=== PATIENT | female | born 2000 | race African-American/Black ===

== ENCOUNTER 2022-06-18 09:38 | Emergency (ER) | payer OTHER ==
[2022-06-18] MEDS ORDERED: SODIUM CHLORIDE 0.9% 1,000 ML IV STA (11:08)
[2022-06-18] MEDS ORDERED: METOCLOPRAMIDE 10 MG/2 ML VIAL IVP STA (11:09)
--- NOTE | 2022-06-18 12:08 | ED Physician Documentation ---
PD HPI HEADACHE - Stated complaint Stated Complaint: HEADACHE/DIZZINESS - Chief complaint Chief Complaint: Neuro - History obtained from History obtained from: Patient - History of Present Illness Timing - onset: Today Worst headache ever?: No: Worst headache ever? Location: Front Quality: No: Thunderclap, Throbbing, Aching, Stabbing, Like head is exploding Associated symptoms: No: Fever, Stiff neck, Nausea, Vomiting Improved by: Dark room, Quiet Worsened by: Light Contributing factors: No: Anticoagulated - Additional information Additional information: 21-year-old female with no reported past medical history presents with low- grade, throbbing, frontal headache with associated photophobia. Patient noticed her headache when she woke up this morning, no medications taken at home for symptoms. She states that she called the [facility] medical office, who advised that she come to the ER for evaluation. Patient denies personal history of migraines, states that her mother was diagnosed with migraine headaches when she was young. Denies fever, blurred vision, neck stiffness, worst headache of life. Denies change in headache with Valsalva. Review of Systems Ten Systems: 10 systems reviewed and negative Constitutional: denies: Fever, Chills Eyes: reports: Photophobia. denies: Loss of vision, Decreased vision, Discharge, Irritation Cardiac: denies: Chest pain / pressure, Palpitations GI: denies: Abdominal Pain, Nausea, Vomiting : denies: Dysuria, Frequency, Hesitancy Skin: denies: Rash Musculoskeletal: denies: Neck pain, Back pain, Extremity pain Neurologic: reports: Headache. denies: Generalized weakness, Focal weakness PD PAST MEDICAL HISTORY - Past Medical History Past Medical History: No - Past Surgical History Past Surgical History: No - Allergies Allergies/Adverse Reactions: Allergies Allergy/AdvReac Type Severity Reaction Status Date / Time No Known Drug Allergies Allergy Verified 06/18/22 09:54 - Social History Does the pt smoke?: No Smoking Status: Never smoker Does the pt drink ETOH?: No Does the pt have substance abuse?: No - Immunizations Immunizations are current?: Yes PD ED PE NORMAL - Vitals Vital signs reviewed: Yes - General General: Alert and oriented X 3, No acute distress, Well developed/nourished - HEENT HEENT: Atraumatic, PERRL, EOMI, Ears normal, Moist mucous membranes - Neck Neck: Supple, no meningeal sign, No bony TTP, No adenopathy, Thyroid normal, C- Spine cleared by NEXUS criteria - Cardiac Cardiac: RRR, No gallop, No rub, Strong equal pulses - Respiratory Respiratory: No respiratory distress, Clear bilaterally - Abdomen Abdomen: Soft, Non tender, Non distended, No organomegaly - Female Female : Deferred - Back Back: No CVA TTP, No spinal TTP - Derm Derm: Normal color, Warm and dry, No rash - Extremities Extremities: No deformity, No tenderness to palpate, Normal ROM s pain - Neuro Neuro: Alert and oriented X 3, clinical staff educator 2-12 intact, No motor deficit, No sensory de ficit, Normal speech - Psych Psych: Normal mood, Normal affect Results - Vitals Vitals: Vital Signs - 24 hr 06/18/22 06/18/22 09:51 12:14 Temperature 36.4 C L Heart Rate 75 62 Respiratory 16 15 Rate Blood Pressure 115/71 112/63 O2 Saturation 100 100 Oxygen O2 Source Room air PD MEDICAL DECISION MAKING - ED course Complexity details: re-evaluated patient, considered differential, d/w patient ED course: . Well-appearing female with 1 day of frontal headache and photophobia s uspicious for migraine headache. Neurologically intact, patient drove herself to the emergency department, ambulatory without difficulty, no acute distress on exam. Patient was given a headache cocktail with complete resolution of her symptoms. Patient was counseled to follow-up with primary care physician if she continues to experience headaches for further work-up. Red flag signs of headache discussed with patient at bedside. Counseled Tylenol and Motrin as needed for head discomfort, advised patient to drink plenty of fluids. Patient requested a note for work, which was provided. Departure - Departure Disposition: 01 Home, Self Care Clinical Impression: Headache Qualifiers: Headache type: unspecified Headache chronicity pattern: acute headache Intractability: not intractable Qualified Code(s): R51.9 - Headache, unspecified Condition: Good Instructions: ED Headache Migraine Discharge Date/Time: 06/18/22 12:55
[2022-06-18 12:15] VITALS: BP 112/63
== END 2022-06-18 12:55 | disposition home or self-care (01) ==
LOC: ED 09:38
DX: R51.9 Headache, unspecified (principal)
CPT/HCPCS: 96374; 99282; 99283; J2765

== ENCOUNTER 2022-08-21 08:00 | Outpatient (CLI) | payer OTHER ==
[2022-08-21 18:01] LABS: BASOPHILS % (AUTO) 0.9 %; EOSINOPHILS % (AUTO) 1.2 %; HCT - HEMATOCRIT 37.6 % (37.0-47.0); HGB - HEMOGLOBIN 11.7 g/dL (12.0-16.0); LYMPHOCYTES # (AUTO) 1.8 10^3/uL (1.5-3.5); LYMPHOCYTES % (AUTO) 52.6 %; MEAN CORPUSCULAR HEMOGLOBIN 25.6 pg (27.0-31.0); MEAN CORPUSCULAR HGB CONC 31.1 g/dL (32.0-36.0); MEAN CORPUSCULAR VOLUME 82.3 fL (81.0-99.0); MEAN PLATELET VOLUME 11.2 fL (7.9-10.8); MONOCYTES # (AUTO) 0.4 10^3/uL (0.0-1.0); MONOCYTES % (AUTO) 11.9 %; NEUTROPHILS # (AUTO) 1.1 10^3/uL (1.5-6.6); NEUTROPHILS % (AUTO) 33.1 %; PLT - PLATELET COUNT 245 10^3/uL (130-450); RED BLOOD COUNT 4.57 10^6/uL (4.20-5.40); WHITE BLOOD COUNT 3.4 x10^3/uL (4.8-10.8)
[2022-08-21 18:09] LABS: ALBUMIN 4.5 g/dL (3.2-5.5); ALBUMIN/GLOBULIN RATIO 1.5 (1.0-2.2); BILIRUBIN,TOTAL 1.2 mg/dL (0.2-1.0); CALCIUM 9.6 mg/dL (8.5-10.3); CREATININE 0.7 mg/dL (0.4-1.0); POTASSIUM 3.9 mmol/L (3.5-5.0); TOTAL PROTEIN 7.5 g/dL (6.7-8.2)
[2022-08-21 18:33] LABS: HCG,QUALITATIVE BLOOD NEGATIVE
== END 2022-08-21 23:59 | disposition home or self-care (01) ==
LOC: LAB.N 08:00
PROVIDERS: ATTEND Nurse Practitioner
DX: R10.9 Unspecified abdominal pain (principal)
CPT/HCPCS: 36415; 80053; 82150; 83690; 84703; 85025

== ENCOUNTER 2022-11-19 08:00 | Outpatient (CLI) | payer OTHER ==
[2022-11-19 12:27] LABS: BASOPHILS % (AUTO) 0.6 %; EOSINOPHILS % (AUTO) 0.6 %; HCT - HEMATOCRIT 39.2 % (37.0-47.0); HGB - HEMOGLOBIN 11.9 g/dL (12.0-16.0); LYMPHOCYTES # (AUTO) 1.9 10^3/uL (1.5-3.5); LYMPHOCYTES % (AUTO) 35.4 %; MEAN CORPUSCULAR HEMOGLOBIN 25.3 pg (27.0-31.0); MEAN CORPUSCULAR HGB CONC 30.4 g/dL (32.0-36.0); MEAN CORPUSCULAR VOLUME 83.2 fL (81.0-99.0); MEAN PLATELET VOLUME 11.4 fL (7.9-10.8); MONOCYTES # (AUTO) 0.5 10^3/uL (0.0-1.0); MONOCYTES % (AUTO) 9.3 %; NEUTROPHILS # (AUTO) 2.9 10^3/uL (1.5-6.6); NEUTROPHILS % (AUTO) 53.7 %; PLT - PLATELET COUNT 262 10^3/uL (130-450); RED BLOOD COUNT 4.71 10^6/uL (4.20-5.40); RED CELL DISTRIBUTION WIDTH 14.7 % (12.0-15.0); WHITE BLOOD COUNT 5.4 x10^3/uL (4.8-10.8)
== END 2022-11-19 23:59 | disposition home or self-care (01) ==
LOC: LAB.N 08:00
PROVIDERS: ATTEND Family Medicine
DX: Z32.01 Encounter for pregnancy test, result positive (principal); N39.0 Urinary tract infection, site not specified; R10.2 Pelvic and perineal pain
CPT/HCPCS: 36415; 84702; 85025; 87077; 87086; 87181

== ENCOUNTER 2022-11-19 13:32 | Outpatient (CLI) | payer OTHER ==
--- NOTE | 2022-11-19 15:16 | Ultrasound Report ---
PROCEDURE: OB First Trimester w/TV INDICATIONS: POSITIVE TEST OUTSIDE/PRIOR DATING DATA: Last menstrual period (LMP): 09/27/2022. LMP-based estimated date of delivery (CARLA): 07/04/2023. First dating scan (date and location): 11/19/2022. Estimated date of delivery (CARLA) from first dating scan: 07/05/2023. TECHNIQUE: Real-time scanning was performed of the fetus and maternal pelvic organs, with image documentation. Endovaginal scanning was also performed to better visualize the fetus and maternal ovaries. COMPARISON: None. FINDINGS: Single living intrauterine . A small subchorionic hemorrhage is present measuring up to 1.6 cm, less than 50% circumference of the adjacent gestational sac. Embryo: Arco-rump length of 1.22 cm corresponding to gestational age of 7 weeks 3 days. Heart rate: 155 bpm Measurement variability in dating: +/- 4 weeks by LMP, +/- 7 days by mean sac diameter (use before 6 weeks gestation if crown-rump length not able to be measured), +/- 5 days by crown-rump length (6-12 weeks gestation). Maternal organs: Ovaries are unremarkable. IMPRESSION: Single living intrauterine with gestational age of 7 weeks 3 days by crown-rump length, con cordant with clinical dates. Reviewed by: Armand Leslie MD on 11/19/2022 3:15 PM PST Approved by: Armand Leslie MD on 11/19/2022 3:15 PM PST Station ID: [id number]
== END 2022-11-19 13:33 | disposition home or self-care (01) ==
LOC: DI 13:32
PROVIDERS: ATTEND Nurse Practitioner
DX: Z34.91 Encounter for supervision of normal pregnancy, unspecified, first trimester (principal)

== ENCOUNTER 2022-11-20 23:23 | Emergency (ER) | payer OTHER ==
[2022-11-21] MEDS ORDERED: diphenhydrAMINE 25 MG CAPSULE PO STA (00:35)
--- NOTE | 2022-11-21 00:38 | ED Physician Documentation ---
PD HPI HEENT - Stated complaint Stated Complaint: SWOLLEN THROAT/COUGH - Chief complaint Chief Complaint: Heent - History obtained from History obtained from: Patient - Additional information Additional information: The patient comes to the emergency department chief complaint of feeling of swollen throat after taking her amoxicillin. She states she is on amoxicillin for urinary tract infection and that she has been on it for couple days with no problems. However, about 3 hours after her last dose 1800, she began to feel as though her throat was tight when she was laying down. She states she also had a tight feeling in her chest and had a little bit of a cough. He has not had any respiratory illness prior. She denies any swelling of her tongue or lips. She did not have a rash or itching. She states when she sat up she felt a little better and that the sensation is nearly gone now. No prior allergies. No other complaints at this time. She states her mother is allergic to penicillins. Review of Systems Ten Systems: 10 systems reviewed and negative Constitutional: reports: Reviewed and negative Eyes: reports: Reviewed and negative Ears: reports: Reviewed and negative Nose: reports: Reviewed and negative Throat: reports: Reviewed and negative Cardiac: reports: Reviewed and negative Respiratory: reports: Cough GI: reports: Reviewed and negative : reports: Reviewed and negative Skin: reports: Reviewed and negative Musculoskeletal: reports: Reviewed and negative Neurologic: reports: Reviewed and negative Psychiatric: reports: Reviewed and negative Endocrine: reports: Reviewed and negative Immunocompromised: reports: Reviewed and negative PD PAST MEDICAL HISTORY - Past Medical History Past Medical History: No - Past Surgical History Past Surgical History: No - Present Medications Home Medications: Ambulatory Orders Medication Instructions Recorded Confirmed Amoxicillin 500 mg PO TID 11/20/22 11/20/22 Ondansetron HCl 4 mg PO Q8HR PRN 11/20/22 11/20/22 Vit No.130/Iron/Folic 1 tab PO DAILY 11/20/22 11/20/22 [ Tablet] Nitrofurantoin [Macrobid] 100 mg PO BID #14 cap 11/21/22 - Allergies Allergies/Adverse Reactions: Allergies Allergy/AdvReac Type Severity Reaction Status Date / Time No Known Drug Allergies Allergy Verified 11/20/22 23:43 - Social History Does the pt smoke?: No Smoking Status: Never smoker Does the pt drink ETOH?: No Does the pt have substance abuse?: No - Immunizations Immunizations are current?: Yes - POLST Patient has POLST: No PD ED PE NORMAL - Vitals Vital signs reviewed: Yes - General General: Alert and oriented X 3, No acute distress, Well developed/nourished - HEENT HEENT: Atraumatic, PERRL, EOMI, Moist mucous membranes, Other (No oropharyngeal edema.) - Neck Neck: Supple, no meningeal sign - Cardiac Cardiac: RRR, No murmur - Respiratory Respiratory: No respiratory distress, Clear bilaterally - Abdomen Abdomen: Soft, Non tender, Non distended - Derm Derm: Normal color, Warm and dry, No rash - Extremities Extremities: No deformity - Neuro Neuro: Alert and oriented X 3 - Psych Psych: Normal mood, Normal affect Results - Vitals Vitals: Vital Signs - 24 hr 11/20/22 11/21/22 23:30 00:48 Temperature 36.8 C 36.8 C Heart Rate 70 72 Respiratory 16 16 Rate Blood Pressure 122/66 110/46 L O2 Saturation 100 100 Oxygen O2 Source Room air PD Medical Decision Making - ED course Complexity details: considered differential, d/w patient ED course: I discussed with the patient that it is not clear whether she is actually had an allergic reaction or not. Her presentation is somewhat atypical, given that the symptoms started 3 hours after taking the med, and not there was no rash, itching, or demonstrable edema. However, given that the patient's mother is allergic to penicillins and given that we can easily switch her p.o. a different antibiotic that will be safe in , this is probably the most prudent course of action. I given the patient a dose of Benadryl here. I have given her a prescription for Macrobid, which she will fill at pharmacy tomorrow. We discussed the usual indications for return. Departure - Departure Disposition: 01 Home, Self Care Clinical Impression: Allergic reaction Qualifiers: Encounter type: initial encounter Qualified Code(s): T78.40XA - Allergy, unspecified, initial encounter Condition: Stable Instructions: ED Drug React Allergic Prescriptions: Nitrofurantoin [Macrobid] 100 mg PO BID #14 cap Comments: As we have discussed, your symptoms are not entirely typical of allergic reaction, given that they started 3 hours after you took the antibiotic, and g iven that they were not associated with any itching or rash. However, since you did feel a tightening in your throat and some difficulty breathing, we will err on the side of caution and switch you to a different antibiotic. The prescription for this has been electronically transmitted to the [facility] pharmacy in [place]. We have given you a dose of Benadryl tonight. Your lungs have been found to be clear here and there is no swelling of the structures of your mouth or throat. You may get some [id number] Benadryl and if you continue to have that sensation, which you may for the next couple of days, you may take the Benadryl as needed. Please follow-up with your primary care doctor as needed for further concerns. Discharge Date/Time: 11/21/22 00:48
[2022-11-21 00:49] VITALS: BP 110/46
== END 2022-11-21 00:48 | disposition home or self-care (01) ==
LOC: ED 23:23
DX: R09.89 Other specified symptoms and signs involving the circulatory and respiratory systems (principal); R07.89 Other chest pain; T36.0X5A Adverse effect of penicillins, initial encounter; N39.0 Urinary tract infection, site not specified
CPT/HCPCS: 99282; A9270

== ENCOUNTER 2022-12-05 08:00 | Outpatient (CLI) | payer OTHER ==
[2022-12-05 16:37] LABS: BILIRUBIN,URINE NEGATIVE (NEGATIVE); GLUCOSE, URINE (UA) NEGATIVE (NEGATIVE); KETONES,URINE (UA) NEGATIVE (NEGATIVE); LEUKOCYTE ESTERASE, URINE TRACE (NEGATIVE); NITRITE,URINE NEGATIVE (NEGATIVE); OCCULT BLOOD,URINE NEGATIVE (NEGATIVE); PROTEIN,URINE NEGATIVE (NEGATIVE); UROBILINOGEN,URINE 0.2 (NORMAL) E.U./dL (NORMAL)
[2022-12-05 16:40] LABS: CLARITY,URINE CLEAR (CLEAR)
[2022-12-05 16:56] LABS: AMORPHOUS SEDIMENT,UR Few /LPF; BACTERIA,URINE Moderate /HPF (None Seen); RBC,URINE 0-5 /HPF (0-5); SQUAMOUS EPITHELIAL CELL,UR MOD Squamous (<= Few)
[2022-12-05 23:36] LABS: CHLAMYDIA TRACHOMATIS DNA NEGATIVE (NEGATIVE); NEISSERIA GONORRHOEAE DNA NEGATIVE (NEGATIVE); TRICHOMONAS VAGINALIS DNA NEGATIVE (NEGATIVE)
== END 2022-12-05 23:59 | disposition home or self-care (01) ==
LOC: LAB 08:00
PROVIDERS: ATTEND Nurse Practitioner
DX: Z34.90 Encounter for supervision of normal pregnancy, unspecified, unspecified trimester (principal); Z36.89 Encounter for other specified antenatal screening
CPT/HCPCS: 81001; 87086; 87491; 87591; 87661

== ENCOUNTER 2022-12-05 10:42 | Outpatient (CLI) | payer OTHER ==
[2022-12-05 11:01] LABS: BASOPHILS % (AUTO) 0.4 %; EOSINOPHILS # (AUTO) 0.1 10^3/uL (0.0-0.7); EOSINOPHILS % (AUTO) 0.7 %; LYMPHOCYTES # (AUTO) 1.8 10^3/uL (1.5-3.5); MEAN CORPUSCULAR HEMOGLOBIN 25.8 pg (27.0-31.0); MEAN CORPUSCULAR HGB CONC 31.4 g/dL (32.0-36.0); MEAN PLATELET VOLUME 10.5 fL (7.9-10.8); MONOCYTES # (AUTO) 0.7 10^3/uL (0.0-1.0); MONOCYTES % (AUTO) 10.2 %; NEUTROPHILS # (AUTO) 4.4 10^3/uL (1.5-6.6); NEUTROPHILS % (AUTO) 62.3 %; PLT - PLATELET COUNT 240 10^3/uL (130-450); RED BLOOD COUNT 4.27 10^6/uL (4.20-5.40); RED CELL DISTRIBUTION WIDTH 14.7 % (12.0-15.0)
[2022-12-06 06:09] LABS: RPR Non Reactive (Non Reactive)
[2022-12-06 07:10] LABS: HIV SCREEN 4TH GENERATION Non Reactive (Non Reactive)
[2022-12-06 08:10] LABS: HBsAG SCREEN Negative (Negative); HCV AB <0.1 s/co ratio (0.0-0.9); VARICELLA-ZOSTER AB IGG 682 index (Immune >165)
== END 2022-12-05 10:43 | disposition home or self-care (01) ==
LOC: LAB 10:42
PROVIDERS: ATTEND Nurse Practitioner
DX: O99.019 Anemia complicating pregnancy, unspecified trimester (principal); D64.9 Anemia, unspecified
CPT/HCPCS: 36415; 82728; 85025; 86592; 86762; 86787; 86803; 86850; 86900; 86901; 87340; 87389

== ENCOUNTER 2022-12-23 09:46 | Emergency (ER) | payer OTHER ==
--- OUTSIDE RECORDS SUMMARY | 2022-12-23 10:17 | EXTERNAL MEDICAL SUMMARY RPT | Continuity of Care Document ---
:2000 Author Organization [facility] Address [address] [place] [address] Phone Care Team Providers Name Role Phone Unavailable Unavailable Unavailable Natalee Alexander Unavailable Unavailable Ishan Oquendo, Alexx Unavailable Unavailable Tao Campbell Md Unavailable Unavailable Kelsey Venegas Enp, Ally Unavailable Unavailable Gonzalo Oquendo, Drew Unavailable Unavailable Obdulia Sotelo, Elayne Unavailable Unavailable Allergies No information. Encounters No information. Functional Status No information. Immunizations No information. Medications date description facility 2022-11-19 00:00 amoxicillin All 2022-11-19 00:00 amoxicillin All 2022-11-19 00:00 amoxicillin All 2022-11-19 00:00 amoxicillin All 2022-11-19 00:00 amoxicillin All 2022-11-17 00:00 ondansetron All 2022-11-17 00:00 ondansetron All 2022-11-17 00:00 ondansetron All 2022-11-17 00:00 ondansetron All 2022-11-17 00:00 ondansetron All 2022-11-17 00:00 ondansetron All 2022-12-05 00:00 promethazine All 2022-11-19 00:00 amoxicillin All 2022-11-19 00:00 amoxicillin All 2022-11-19 00:00 amoxicillin All 2022-11-19 00:00 amoxicillin All 2022-11-19 00:00 amoxicillin All 2022-12-04 00:00 ONDANSETRON All 2022-12-04 00:00 ONDANSETRON All 2022-11-17 00:00 ondansetron All 2022-11-17 00:00 ondansetron All 2022-11-17 00:00 ondansetron All 2022-11-17 00:00 ondansetron All 2022-11-17 00:00 ondansetron All 2022-11-17 00:00 ondansetron All 2022-11-21 00:00 nitrofurantoin monohyd/m-cryst All 2022-11-21 00:00 nitrofurantoin monohyd/m-cryst All 2022-11-21 00:00 nitrofurantoin monohyd/m-cryst All 2022-11-21 00:00 nitrofurantoin monohyd/m-cryst All 2022-11-21 00:00 nitrofurantoin monohyd/m-cryst All 2022-11-21 00:00 nitrofurantoin monohyd/m-cryst All 2022-12-04 00:00 ondansetron hcl All 2022-12-04 00:00 ondansetron hcl All 2022-12-04 00:00 ondansetron hcl All 2022-12-04 00:00 ondansetron hcl All 2022-11-19 00:00 amoxicillin All 2022-11-19 00:00 amoxicillin All 2022-11-19 00:00 amoxicillin All 2022-11-19 00:00 amoxicillin All 2022-11-19 00:00 amoxicillin All 2022-12-05 00:00 promethazine All 2022-11-19 00:00 amoxicillin All 2022-11-19 00:00 amoxicillin All 2022-11-19 00:00 amoxicillin All 2022-11-19 00:00 amoxicillin All 2022-11-19 00:00 amoxicillin All 2022-11-17 00:00 ondansetron All 2022-11-17 00:00 ondansetron All 2022-11-17 00:00 ondansetron All 2022-11-17 00:00 ondansetron All 2022-11-17 00:00 ondansetron All 2022-11-17 00:00 ondansetron All 2022-12-04 00:00 ondansetron hcl All 2022-12-04 00:00 ondansetron hcl All 2022-11-21 00:00 nitrofurantoin monohyd/m-cryst All 2022-11-21 00:00 nitrofurantoin monohyd/m-cryst All 2022-11-21 00:00 nitrofurantoin monohyd/m-cryst All 2022-11-21 00:00 nitrofurantoin monohyd/m-cryst All 2022-11-21 00:00 nitrofurantoin monohyd/m-cryst All 2022-11-21 00:00 nitrofurantoin monohyd/m-cryst All 2022-12-04 00:00 ondansetron hcl All 2022-12-04 00:00 ondansetron hcl All 2022-11-17 00:00 ondansetron All 2022-11-17 00:00 ondansetron All 2022-11-17 00:00 ondansetron All 2022-11-17 00:00 ondansetron All 2022-11-17 00:00 ondansetron All 2022-11-17 00:00 ondansetron All 2022-12-05 00:00 promethazine All 2022-12-05 00:00 promethazine All Problems date description facility 2022-11-13 00:00 test positive All 2022-11-13 00:00 test positive All 2022-11-13 00:00 test positive All 2022-11-13 00:00 test positive All 2022-11-13 00:00 test positive All 2022-11-13 00:00 test positive All 2022-11-13 00:00 Normal All 2022-11-13 00:00 Normal All 2022-11-13 00:00 Normal All 2022-11-13 00:00 Normal All 2022-11-13 00:00 Normal All 2022-11-13 00:00 Normal All 2022-11-13 00:00 Supervision of other normal All 2022-11-13 00:00 Supervision of other normal All 2022-11-13 00:00 Supervision of other normal All 2022-11-13 00:00 Supervision of other normal All 2022-11-13 00:00 Supervision of other normal All 2022-11-13 00:00 Supervision of other normal All 2022-11-13 00:00 examination or test, positive result All 2022-11-13 00:00 examination or test, positive result All 2022-11-13 00:00 examination or test, positive result All 2022-11-13 00:00 examination or test, positive result All 2022-11-13 00:00 examination or test, positive result All 2022-11-13 00:00 examination or test, positive result All 2022-11-13 00:00 Encounter for test, result po sitive All 2022-11-13 00:00 Encounter for test, result po sitive All 2022-11-13 00:00 Encounter for test, result po sitive All 2022-11-13 00:00 Encounter for test, result po sitive All 2022-11-13 00:00 Encounter for test, result po sitive All 2022-11-13 00:00 Encounter for test, result po sitive All 2022-11-13 00:00 Encounter for supervision of normal preg kelsi, All unspecified, unspecified trimester 2022-11-13 00:00 Encounter for supervision of normal preg kelsi, All unspecified, unspecified trimester 2022-11-13 00:00 Encounter for supervision of normal preg kelsi, All unspecified, unspecified trimester 2022-11-13 00:00 Encounter for supervision of normal preg kelsi, All unspecified, unspecified trimester 2022-11-13 00:00 Encounter for supervision of normal preg kelsi, All unspecified, unspecified trimester 2022-11-13 00:00 Encounter for supervision of normal preg kelsi, All unspecified, unspecified trimester 2022-11-17 00:00 Nausea alone All 2022-11-17 00:00 Nausea alone All 2022-11-17 00:00 Nausea alone All 2022-11-17 00:00 Nausea alone All 2022-11-17 00:00 Nausea alone All 2022-11-17 00:00 Nausea alone All 2022-11-17 00:00 Nausea All 2022-11-17 00:00 Nausea All 2022-11-17 00:00 Nausea All 2022-11-17 00:00 Nausea All 2022-11-17 00:00 Nausea All 2022-11-17 00:00 Nausea All 2022-11-19 00:00 Pain in pelvis All 2022-11-19 00:00 Pain in pelvis All 2022-11-19 00:00 Pain in pelvis All 2022-11-19 00:00 Pain in pelvis All 2022-11-19 00:00 Pain in pelvis All 2022-11-19 00:00 Unspecified symptom associated with fem chery genital All organs 2022-11-19 00:00 Unspecified symptom associated with fem chery genital All organs 2022-11-19 00:00 Unspecified symptom associated with fem chery genital All organs 2022-11-19 00:00 Unspecified symptom associated with fem chery genital All organs 2022-11-19 00:00 Unspecified symptom associated with fem chery genital All organs 2022-11-19 00:00 Urinary tract infectious disease All 2022-11-19 00:00 Urinary tract infectious disease All 2022-11-19 00:00 Urinary tract infectious disease All 2022-11-19 00:00 Urinary tract infectious disease All 2022-11-19 00:00 Urinary tract infectious disease All 2022-11-19 00:00 Urinary tract infection, site not speci fied All 2022-11-19 00:00 Urinary tract infection, site not speci fied All 2022-11-19 00:00 Urinary tract infection, site not speci fied All 2022-11-19 00:00 Urinary tract infection, site not speci fied All 2022-11-19 00:00 Urinary tract infection, site not speci fied All 2022-11-19 00:00 Pelvic and perineal pain All 2022-11-19 00:00 Pelvic and perineal pain All 2022-11-19 00:00 Pelvic and perineal pain All 2022-11-19 00:00 Pelvic and perineal pain All 2022-11-19 00:00 Pelvic and perineal pain All 2022-12-04 00:00 Repeated prescription All 2022-12-04 00:00 Repeated prescription All 2022-12-04 00:00 Nausea alone All 2022-12-04 00:00 Nausea alone All 2022-12-04 00:00 Nausea All 2022-12-04 00:00 Nausea All 2022-12-04 00:00 Issue of repeat prescriptions All 2022-12-04 00:00 Issue of repeat prescriptions All 2022-12-04 00:00 Encounter for issue of repeat prescript ion All 2022-12-04 00:00 Encounter for issue of repeat prescript ion All 2022-12-05 00:00 Venereal disease screening All 2022-12-05 00:00 screening All 2022-12-05 00:00 Anemia All 2022-12-05 00:00 Anemia, unspecified All 2022-12-05 00:00 Encounter for other specified screening of All mother 2022-12-05 00:00 Screening examination for venereal dise ase All 2022-12-05 00:00 Encounter for screening for infections w ith a All predominantly sexual mode of transmissio n 2022-12-05 00:00 Encounter for other specified screening All Procedures date description facility 2022-11-17 00:00 Visit Code Hold All 2022-11-17 00:00 Visit Code Hold All 2022-11-17 00:00 Visit Code Hold All 2022-11-17 00:00 Visit Code Hold All 2022-11-17 00:00 Visit Code Hold All 2022-11-17 00:00 Visit Code Hold All 2022-11-19 00:00 Visit Code Hold All 2022-11-19 00:00 Visit Code Hold All 2022-11-19 00:00 Visit Code Hold All 2022-11-19 00:00 Visit Code Hold All 2022-11-19 00:00 Visit Code Hold All 2022-12-04 00:00 Visit Code Hold All 2022-12-04 00:00 Visit Code Hold All 2022-12-05 00:00 Visit Code Hold All 2022-11-13 00:00 US OB <14 WEEKS All 2022-11-13 00:00 US OB <14 WEEKS All 2022-11-13 00:00 US OB <14 WEEKS All 2022-11-19 00:00 POC URINALYSIS DIP All 2022-11-19 00:00 POC URINALYSIS DIP All 2022-11-19 00:00 POC URINALYSIS DIP All 2022-11-19 00:00 POC URINALYSIS DIP All 2022-11-19 00:00 POC URINALYSIS DIP All 2022-11-13 00:00 Urinalysis with Microscopic Exam, Cultu re in Indicated All 2022-12-05 00:00 Ferritin All 2022-11-19 00:00 HCG QUANTITATIVE All 2022-11-19 00:00 HCG QUANTITATIVE All 2022-11-19 00:00 HCG QUANTITATIVE All 2022-11-19 00:00 HCG QUANTITATIVE All 2022-11-19 00:00 HCG QUANTITATIVE All 2022-11-19 00:00 POC HCG All 2022-11-19 00:00 POC HCG All 2022-11-19 00:00 POC HCG All 2022-11-19 00:00 POC HCG All 2022-11-19 00:00 POC HCG All 2022-11-19 00:00 CBC W/Diff/Plt All 2022-11-19 00:00 CBC W/Diff/Plt All 2022-11-19 00:00 CBC W/Diff/Plt All 2022-11-19 00:00 CBC W/Diff/Plt All 2022-11-19 00:00 CBC W/Diff/Plt All 2022-11-13 00:00 Urine C&S All 2022-11-19 00:00 Urine C&S All 2022-11-19 00:00 Urine C&S All 2022-11-19 00:00 Urine C&S All 2022-11-19 00:00 Urine C&S All 2022-11-19 00:00 Urine C&S All 2022-12-05 00:00 CHLAM, NEISSERIA, TRICH DNA All 2022-12-04 00:00 Med Administration (PO-SL-IN-DE) All 2022-12-04 00:00 Med Administration (PO-SL-IN-DE) All 2022-12-04 00:00 Ondansetron 4 mg All 2022-12-04 00:00 Ondansetron 4 mg All Results/Labs test date author facility value unit interpret ation Result panel 1 (unknown) (no date) (unknown) All (no value) (units unknown ) (unknown) Result panel 2 (unknown) (no date) (unknown) All (no value) (units unknown ) (unknown) Result panel 3 (unknown) (no date) (unknown) All (no value) (units unknown ) (unknown) Result panel 4 (unknown) (no date) (unknown) All (no value) (units unknown ) (unknown) Result panel 5 (unknown) (no date) (unknown) All (no value) (units unknown ) (unknown) Result panel 6 (unknown) (no date) (unknown) All (no value) (units unknown ) (unknown) Result panel 7 (unknown) (no date) (unknown) All (no value) (units unknown ) (unknown) Result panel 8 (unknown) (no date) (unknown) All (no value) (units unknown ) (unknown) Result panel 9 (unknown) (no date) (unknown) All (no value) (units unknown ) (unknown) Result panel 10 (unknown) (no date) (unknown) All (no value) (units unknown ) (unknown) Result panel 11 (unknown) (no date) (unknown) All (no value) (units unknown ) (unknown) Result panel 12 (unknown) (no date) (unknown) All (no value) (units unknown ) (unknown) Result panel 13 (unknown) (no date) (unknown) All (no value) (units unknown ) (unknown) Result panel 14 (unknown) (no date) (unknown) All (no value) (units unknown ) (unknown) Result panel 15 (unknown) (no date) (unknown) All (no value) (units unknown ) (unknown) Result panel 16 (unknown) (no date) (unknown) All (no value) (units unknown ) (unknown) Result panel 17 (unknown) (no date) (unknown) All (no value) (units unknown ) (unknown) Result panel 18 (unknown) (no date) (unknown) All (no value) (units unknown ) (unknown) Result panel 19 (unknown) (no date) (unknown) All (no value) (units unknown ) (unknown) Result panel 20 (unknown) (no date) (unknown) All (no value) (units unknown ) (unknown) Result panel 21 (unknown) (no date) (unknown) All (no value) (units unknown ) (unknown) Result panel 22 (unknown) (no date) (unknown) All (no value) (units unknown ) (unknown) Result panel 23 (unknown) (no date) (unknown) All (no value) (units unknown ) (unknown) Result panel 24 (unknown) (no date) (unknown) All (no value) (units unknown ) (unknown) Result panel 25 (unknown) (no date) (unknown) All (no value) (units unknown ) (unknown) Result panel 26 (unknown) (no date) (unknown) All (no value) (units unknown ) (unknown) Result panel 27 (unknown) (no date) (unknown) All (no value) (units unknown ) (unknown) Result panel 28 (unknown) (no date) (unknown) All (no value) (units unknown ) (unknown) Result panel 29 (unknown) (no date) (unknown) All (no value) (units unknown ) (unknown) Result panel 30 (unknown) (no date) (unknown) All (no value) (units unknown ) (unknown) Result panel 31 (unknown) (no date) (unknown) All (no value) (units unknown ) (unknown) Result panel 32 (unknown) (no date) (unknown) All (no value) (units unknown ) (unknown) Result panel 33 (unknown) (no date) (unknown) All (no value) (units unknown ) (unknown) Result panel 34 (unknown) (no date) (unknown) All (no value) (units unknown ) (unknown) Result panel 35 (unknown) (no date) (unknown) All (no value) (units unknown ) (unknown) Result panel 36 (unknown) (no date) (unknown) All (no value) (units unknown ) (unknown) Result panel 37 (unknown) (no date) (unknown) All (no value) (units unknown ) (unknown) Result panel 38 (unknown) (no date) (unknown) All (no value) (units unknown ) (unknown) Result panel 39 (unknown) (no date) (unknown) All (no value) (units unknown ) (unknown) Result panel 40 (unknown) (no date) (unknown) All (no value) (units unknown ) (unknown) Result panel 41 (unknown) (no date) (unknown) All (no value) (units unknown ) (unknown) Result panel 42 (unknown) (no date) (unknown) All (no value) (units unknown ) (unknown) Result panel 43 (unknown) (no date) (unknown) All (no value) (units unknown ) (unknown) Result panel 44 (unknown) (no date) (unknown) All (no value) (units unknown ) (unknown) Result panel 45 (unknown) (no date) (unknown) All (no value) (units unknown ) (unknown) Result panel 46 (unknown) (no date) (unknown) All (no value) (units unknown ) (unknown) Result panel 47 (unknown) (no date) (unknown) All (no value) (units unknown ) (unknown) Result panel 48 (unknown) (no date) (unknown) All (no value) (units unknown ) (unknown) Result panel 49 (unknown) (no date) (unknown) All (no value) (units unknown ) (unknown) Result panel 50 (unknown) (no date) (unknown) All (no value) (units unknown ) (unknown) Result panel 51 (unknown) (no date) (unknown) All (no value) (units unknown ) (unknown) Result panel 52 (unknown) (no date) (unknown) All (no value) (units unknown ) (unknown) Result panel 53 (unknown) (no date) (unknown) All (no value) (units unknown ) (unknown) Result panel 54 (unknown) (no date) (unknown) All (no value) (units unknown ) (unknown) Result panel 55 (unknown) (no date) (unknown) All (no value) (units unknown ) (unknown) Result panel 56 (unknown) (no date) (unknown) All (no value) (units unknown ) (unknown) Result panel 57 (unknown) (no date) (unknown) All (no value) (units unknown ) (unknown) Result panel 58 (unknown) (no date) (unknown) All (no value) (units unknown ) (unknown) Result panel 59 (unknown) (no date) (unknown) All (no value) (units unknown ) (unknown) Result panel 60 (unknown) (no date) (unknown) All (no value) (units unknown ) (unknown) Result panel 61 (unknown) (no date) (unknown) All (no value) (units unknown ) (unknown) Result panel 62 (unknown) (no date) (unknown) All (no value) (units unknown ) (unknown) Result panel 63 (unknown) (no date) (unknown) All (no value) (units unknown ) (unknown) Result panel 64 (unknown) (no date) (unknown) All (no value) (units unknown ) (unknown) Result panel 65 (unknown) (no date) (unknown) All (no value) (units unknown ) (unknown) Result panel 66 (unknown) (no date) (unknown) All (no value) (units unknown ) (unknown) Result panel 67 (unknown) (no date) (unknown) All (no value) (units unknown ) (unknown) Result panel 68 (unknown) (no date) (unknown) All (no value) (units unknown ) (unknown) Result panel 69 (unknown) (no date) (unknown) All (no value) (units unknown ) (unknown) Result panel 70 (unknown) (no date) (unknown) All (no value) (units unknown ) (unknown) Result panel 71 (unknown) (no date) (unknown) All (no value) (units unknown ) (unknown) Result panel 72 (unknown) (no date) (unknown) All (no value) (units unknown ) (unknown) Result panel 73 (unknown) (no date) (unknown) All (no value) (units unknown ) (unknown) Result panel 74 (unknown) (no date) (unknown) All (no value) (units unknown ) (unknown) Result panel 75 (unknown) (no date) (unknown) All (no value) (units unknown ) (unknown) Result panel 76 (unknown) (no date) (unknown) All (no value) (units unknown ) (unknown) Result panel 77 (unknown) (no date) (unknown) All (no value) (units unknown ) (unknown) Result panel 78 (unknown) (no date) (unknown) All (no value) (units unknown ) (unknown) Result panel 79 (unknown) (no date) (unknown) All (no value) (units unknown ) (unknown) Result panel 80 (unknown) (no date) (unknown) All (no value) (units unknown ) (unknown) Result panel 81 (unknown) (no date) (unknown) All (no value) (units unknown ) (unknown) Result panel 82 (unknown) (no date) (unknown) All (no value) (units unknown ) (unknown) Result panel 83 (unknown) (no date) (unknown) All (no value) (units unknown ) (unknown) Result panel 84 (unknown) (no date) (unknown) All (no value) (units unknown ) (unknown) Result panel 85 (unknown) (no date) (unknown) All (no value) (units unknown ) (unknown) Result panel 86 (unknown) (no date) (unknown) All (no value) (units unknown ) (unknown) Result panel 87 (unknown) (no date) (unknown) All (no value) (units unknown ) (unknown) Result panel 88 (unknown) (no date) (unknown) All (no value) (units unknown ) (unknown) Result panel 89 (unknown) (no date) (unknown) All (no value) (units unknown ) (unknown) Result panel 90 (unknown) (no date) (unknown) All (no value) (units unknown ) (unknown) Result panel 91 (unknown) (no date) (unknown) All (no value) (units unknown ) (unknown) Result panel 92 (unknown) (no date) (unknown) All (no value) (units unknown ) (unknown) Result panel 93 (unknown) (no date) (unknown) All (no value) (units unknown ) (unknown) Result panel 94 (unknown) (no date) (unknown) All (no value) (units unknown ) (unknown) Result panel 95 (unknown) (no date) (unknown) All (no value) (units unknown ) (unknown) Result panel 96 (unknown) (no date) (unknown) All (no value) (units unknown ) (unknown) Result panel 97 (unknown) (no date) (unknown) All (no value) (units unknown ) (unknown) Result panel 98 (unknown) (no date) (unknown) All (no value) (units unknown ) (unknown) Result panel 99 (unknown) (no date) (unknown) All (no value) (units unknown ) (unknown) Result panel 100 (unknown) (no date) (unknown) All (no value) (units unknown ) (unknown) Result panel 101 (unknown) (no date) (unknown) All (no value) (units unknown ) (unknown) Result panel 102 (unknown) (no date) (unknown) All (no value) (units unknown ) (unknown) Result panel 103 (unknown) (no date) (unknown) All (no value) (units unknown ) (unknown) Result panel 104 (unknown) (no date) (unknown) All (no value) (units unknown ) (unknown) Result panel 105 (unknown) (no date) (unknown) All (no value) (units unknown ) (unknown) Result panel 106 (unknown) (no date) (unknown) All (no value) (units unknown ) (unknown) Result panel 107 (unknown) (no date) (unknown) All (no value) (units unknown ) (unknown) Result panel 108 (unknown) (no date) (unknown) All (no value) (units unknown ) (unknown) Result panel 109 (unknown) (no date) (unknown) All (no value) (units unknown ) (unknown) Result panel 110 (unknown) (no date) (unknown) All (no value) (units unknown ) (unknown) Result panel 111 (unknown) (no date) (unknown) All (no value) (units unknown ) (unknown) Result panel 112 (unknown) (no date) (unknown) All (no value) (units unknown ) (unknown) Result panel 113 (unknown) (no date) (unknown) All (no value) (units unknown ) (unknown) Result panel 114 (unknown) (no date) (unknown) All (no value) (units unknown ) (unknown) Result panel 115 (unknown) (no date) (unknown) All (no value) (units unknown ) (unknown) Result panel 116 (unknown) (no date) (unknown) All (no value) (units unknown ) (unknown) Result panel 117 (unknown) (no date) (unknown) All (no value) (units unknown ) (unknown) Result panel 118 (unknown) (no date) (unknown) All (no value) (units unknown ) (unknown) Result panel 119 (unknown) (no date) (unknown) All (no value) (units unknown ) (unknown) Result panel 120 (unknown) (no date) (unknown) All (no value) (units unknown ) (unknown) Result panel 121 (unknown) (no date) (unknown) All (no value) (units unknown ) (unknown) Result panel 122 (unknown) (no date) (unknown) All (no value) (units unknown ) (unknown) Result panel 123 (unknown) (no date) (unknown) All (no value) (units unknown ) (unknown) Result panel 124 (unknown) (no date) (unknown) All (no value) (units unknown ) (unknown) Result panel 125 (unknown) (no date) (unknown) All (no value) (units unknown ) (unknown) Result panel 126 (unknown) (no date) (unknown) All (no value) (units unknown ) (unknown) Result panel 127 (unknown) (no date) (unknown) All (no value) (units unknown ) (unknown) Result panel 128 (unknown) (no date) (unknown) All (no value) (units unknown ) (unknown) Result panel 129 (unknown) (no date) (unknown) All (no value) (units unknown ) (unknown) Result panel 130 (unknown) (no date) (unknown) All (no value) (units unknown ) (unknown) Result panel 131 (unknown) (no date) (unknown) All (no value) (units unknown ) (unknown) Result panel 132 (unknown) (no date) (unknown) All (no value) (units unknown ) (unknown) Result panel 133 (unknown) (no date) (unknown) All (no value) (units unknown ) (unknown) Result panel 134 (unknown) (no date) (unknown) All (no value) (units unknown ) (unknown) Result panel 135 (unknown) (no date) (unknown) All (no value) (units unknown ) (unknown) Result panel 136 (unknown) (no date) (unknown) All (no value) (units unknown ) (unknown) Result panel 137 (unknown) (no date) (unknown) All (no value) (units unknown ) (unknown) Result panel 138 (unknown) (no date) (unknown) All (no value) (units unknown ) (unknown) Result panel 139 (unknown) (no date) (unknown) All (no value) (units unknown ) (unknown) Result panel 140 (unknown) (no date) (unknown) All (no value) (units unknown ) (unknown) Result panel 141 (unknown) (no date) (unknown) All (no value) (units unknown ) (unknown) Result panel 142 (unknown) (no date) (unknown) All (no value) (units unknown ) (unknown) Result panel 143 (unknown) (no date) (unknown) All (no value) (units unknown ) (unknown) Result panel 144 (unknown) (no date) (unknown) All (no value) (units unknown ) (unknown) Result panel 145 (unknown) (no date) (unknown) All (no value) (units unknown ) (unknown) Result panel 146 (unknown) (no date) (unknown) All (no value) (units unknown ) (unknown) Result panel 147 (unknown) (no date) (unknown) All (no value) (units unknown ) (unknown) Result panel 148 (unknown) (no date) (unknown) All (no value) (units unknown ) (unknown) Result panel 149 (unknown) (no date) (unknown) All (no value) (units unknown ) (unknown) Result panel 150 (unknown) (no date) (unknown) All (no value) (units unknown ) (unknown) Result panel 151 (unknown) (no date) (unknown) All (no value) (units unknown ) (unknown) Result panel 152 (unknown) (no date) (unknown) All (no value) (units unknown ) (unknown) Result panel 153 (unknown) (no date) (unknown) All (no value) (units unknown ) (unknown) Result panel 154 (unknown) (no date) (unknown) All (no value) (units unknown ) (unknown) Result panel 155 (unknown) (no date) (unknown) All (no value) (units unknown ) (unknown) Result panel 156 (unknown) (no date) (unknown) All (no value) (units unknown ) (unknown) Result panel 157 (unknown) (no date) (unknown) All (no value) (units unknown ) (unknown) Result panel 158 (unknown) (no date) (unknown) All (no value) (units unknown ) (unknown) Result panel 159 (unknown) (no date) (unknown) All (no value) (units unknown ) (unknown) Result panel 160 (unknown) (no date) (unknown) All (no value) (units unknown ) (unknown) Result panel 161 (unknown) (no date) (unknown) All (no value) (units unknown ) (unknown) Result panel 162 (unknown) (no date) (unknown) All (no value) (units unknown ) (unknown) Result panel 163 (unknown) (no date) (unknown) All (no value) (units unknown ) (unknown) Result panel 164 (unknown) (no date) (unknown) All (no value) (units unknown ) (unknown) Result panel 165 (unknown) (no date) (unknown) All (no value) (units unknown ) (unknown) Result panel 166 (unknown) (no date) (unknown) All (no value) (units unknown ) (unknown) Result panel 167 (unknown) (no date) (unknown) All (no value) (units unknown ) (unknown) Result panel 168 (unknown) (no date) (unknown) All (no value) (units unknown ) (unknown) Result panel 169 (unknown) (no date) (unknown) All (no value) (units unknown ) (unknown) Result panel 170 (unknown) (no date) (unknown) All (no value) (units unknown ) (unknown) Result panel 171 (unknown) (no date) (unknown) All (no value) (units unknown ) (unknown) Result panel 172 (unknown) (no date) (unknown) All (no value) (units unknown ) (unknown) Result panel 173 (unknown) (no date) (unknown) All (no value) (units unknown ) (unknown) Result panel 174 (unknown) (no date) (unknown) All (no value) (units unknown ) (unknown) Result panel 175 (unknown) (no date) (unknown) All (no value) (units unknown ) (unknown) Result panel 176 (unknown) (no date) (unknown) All (no value) (units unknown ) (unknown) Result panel 177 (unknown) (no date) (unknown) All (no value) (units unknown ) (unknown) Result panel 178 (unknown) (no date) (unknown) All (no value) (units unknown ) (unknown) Result panel 179 (unknown) (no date) (unknown) All (no value) (units unknown ) (unknown) Result panel 180 (unknown) (no date) (unknown) All (no value) (units unknown ) (unknown) Result panel 181 (unknown) (no date) (unknown) All (no value) (units unknown ) (unknown) Result panel 182 (unknown) (no date) (unknown) All (no value) (units unknown ) (unknown) Result panel 183 (unknown) (no date) (unknown) All (no value) (units unknown ) (unknown) Result panel 184 (unknown) (no date) (unknown) All (no value) (units unknown ) (unknown) Result panel 185 (unknown) (no date) (unknown) All (no value) (units unknown ) (unknown) Result panel 186 (unknown) (no date) (unknown) All (no value) (units unknown ) (unknown) Result panel 187 (unknown) (no date) (unknown) All (no value) (units unknown ) (unknown) Result panel 188 (unknown) (no date) (unknown) All (no value) (units unknown ) (unknown) Result panel 189 (unknown) (no date) (unknown) All (no value) (units unknown ) (unknown) Result panel 190 (unknown) (no date) (unknown) All (no value) (units unknown ) (unknown) Result panel 191 (unknown) (no date) (unknown) All (no value) (units unknown ) (unknown) Result panel 192 (unknown) (no date) (unknown) All (no value) (units unknown ) (unknown) Result panel 193 (unknown) (no date) (unknown) All (no value) (units unknown ) (unknown) Result panel 194 (unknown) (no date) (unknown) All (no value) (units unknown ) (unknown) Result panel 195 (unknown) (no date) (unknown) All (no value) (units unknown ) (unknown) Result panel 196 (unknown) (no date) (unknown) All (no value) (units unknown ) (unknown) Result panel 197 (unknown) (no date) (unknown) All (no value) (units unknown ) (unknown) Result panel 198 (unknown) (no date) (unknown) All (no value) (units unknown ) (unknown) Result panel 199 (unknown) (no date) (unknown) All (no value) (units unknown ) (unknown) Result panel 200 (unknown) (no date) (unknown) All (no value) (units unknown ) (unknown) Result panel 201 (unknown) (no date) (unknown) All (no value) (units unknown ) (unknown) Result panel 202 (unknown) (no date) (unknown) All (no value) (units unknown ) (unknown) Result panel 203 (unknown) (no date) (unknown) All (no value) (units unknown ) (unknown) Result panel 204 (unknown) (no date) (unknown) All (no value) (units unknown ) (unknown) Result panel 205 (unknown) (no date) (unknown) All (no value) (units unknown ) (unknown) Result panel 206 (unknown) (no date) (unknown) All (no value) (units unknown ) (unknown) Result panel 207 (unknown) (no date) (unknown) All (no value) (units unknown ) (unknown) Result panel 208 (unknown) (no date) (unknown) All (no value) (units unknown ) (unknown) Result panel 209 (unknown) (no date) (unknown) All (no value) (units unknown ) (unknown) Result panel 210 (unknown) (no date) (unknown) All (no value) (units unknown ) (unknown) Result panel 211 (unknown) (no date) (unknown) All (no value) (units unknown ) (unknown) Result panel 212 (unknown) (no date) (unknown) All (no value) (units unknown ) (unknown) Result panel 213 (unknown) (no date) (unknown) All (no value) (units unknown ) (unknown) Result panel 214 (unknown) (no date) (unknown) All (no value) (units unknown ) (unknown) Result panel 215 (unknown) (no date) (unknown) All (no value) (units unknown ) (unknown) Result panel 216 (unknown) (no date) (unknown) All (no value) (units unknown ) (unknown) Result panel 217 (unknown) (no date) (unknown) All (no value) (units unknown ) (unknown) Result panel 218 (unknown) (no date) (unknown) All (no value) (units unknown ) (unknown) Result panel 219 (unknown) (no date) (unknown) All (no value) (units unknown ) (unknown) Result panel 220 (unknown) (no date) (unknown) All (no value) (units unknown ) (unknown) Result panel 221 (unknown) (no date) (unknown) All (no value) (units unknown ) (unknown) Result panel 222 (unknown) (no date) (unknown) All (no value) (units unknown ) (unknown) Result panel 223 (unknown) (no date) (unknown) All (no value) (units unknown ) (unknown) Result panel 224 (unknown) (no date) (unknown) All (no value) (units unknown ) (unknown) Result panel 225 (unknown) (no date) (unknown) All (no value) (units unknown ) (unknown) Result panel 226 (unknown) (no date) (unknown) All (no value) (units unknown ) (unknown) Result panel 227 (unknown) (no date) (unknown) All (no value) (units unknown ) (unknown) Result panel 228 (unknown) (no date) (unknown) All (no value) (units unknown ) (unknown) Result panel 229 (unknown) (no date) (unknown) All (no value) (units unknown ) (unknown) Result panel 230 (unknown) (no date) (unknown) All (no value) (units unknown ) (unknown) Result panel 231 (unknown) (no date) (unknown) All (no value) (units unknown ) (unknown) Result panel 232 (unknown) (no date) (unknown) All (no value) (units unknown ) (unknown) Result panel 233 (unknown) (no date) (unknown) All (no value) (units unknown ) (unknown) Result panel 234 (unknown) (no date) (unknown) All (no value) (units unknown ) (unknown) Result panel 235 (unknown) (no date) (unknown) All (no value) (units unknown ) (unknown) Result panel 236 (unknown) (no date) (unknown) All (no value) (units unknown ) (unknown) Result panel 237 (unknown) (no date) (unknown) All (no value) (units unknown ) (unknown) Result panel 238 (unknown) (no date) (unknown) All (no value) (units unknown ) (unknown) Result panel 239 (unknown) (no date) (unknown) All (no value) (units unknown ) (unknown) Result panel 240 (unknown) (no date) (unknown) All (no value) (units unknown ) (unknown) Result panel 241 (unknown) (no date) (unknown) All (no value) (units unknown ) (unknown) Result panel 242 (unknown) (no date) (unknown) All (no value) (units unknown ) (unknown) Result panel 243 (unknown) (no date) (unknown) All (no value) (units unknown ) (unknown) Result panel 244 (unknown) (no date) (unknown) All (no value) (units unknown ) (unknown) Result panel 245 (unknown) (no date) (unknown) All (no value) (units unknown ) (unknown) Result panel 246 (unknown) (no date) (unknown) All (no value) (units unknown ) (unknown) Result panel 247 (unknown) (no date) (unknown) All (no value) (units unknown ) (unknown) Result panel 248 (unknown) (no date) (unknown) All (no value) (units unknown ) (unknown) Result panel 249 (unknown) (no date) (unknown) All (no value) (units unknown ) (unknown) Result panel 250 (unknown) (no date) (unknown) All (no value) (units unknown ) (unknown) Result panel 251 (unknown) (no date) (unknown) All (no value) (units unknown ) (unknown) Result panel 252 (unknown) (no date) (unknown) All (no value) (units unknown ) (unknown) Result panel 253 (unknown) (no date) (unknown) All (no value) (units unknown ) (unknown) Result panel 254 (unknown) (no date) (unknown) All (no value) (units unknown ) (unknown) Result panel 255 (unknown) (no date) (unknown) All (no value) (units unknown ) (unknown) Result panel 256 (unknown) (no date) (unknown) All (no value) (units unknown ) (unknown) Result panel 257 (unknown) (no date) (unknown) All (no value) (units unknown ) (unknown) Result panel 258 (unknown) (no date) (unknown) All (no value) (units unknown ) (unknown) Result panel 259 (unknown) (no date) (unknown) All (no value) (units unknown ) (unknown) Result panel 260 (unknown) (no date) (unknown) All (no value) (units unknown ) (unknown) Result panel 261 (unknown) (no date) (unknown) All (no value) (units unknown ) (unknown) Result panel 262 (unknown) (no date) (unknown) All (no value) (units unknown ) (unknown) Result panel 263 (unknown) (no date) (unknown) All (no value) (units unknown ) (unknown) Result panel 264 (unknown) (no date) (unknown) All (no value) (units unknown ) (unknown) Result panel 265 (unknown) (no date) (unknown) All (no value) (units unknown ) (unknown) Result panel 266 (unknown) (no date) (unknown) All (no value) (units unknown ) (unknown) Result panel 267 (unknown) (no date) (unknown) All (no value) (units unknown ) (unknown) Result panel 268 (unknown) (no date) (unknown) All (no value) (units unknown ) (unknown) Result panel 269 (unknown) (no date) (unknown) All (no value) (units unknown ) (unknown) Result panel 270 (unknown) (no date) (unknown) All (no value) (units unknown ) (unknown) Result panel 271 (unknown) (no date) (unknown) All (no value) (units unknown ) (unknown) Result panel 272 (unknown) (no date) (unknown) All (no value) (units unknown ) (unknown) Result panel 273 (unknown) (no date) (unknown) All (no value) (units unknown ) (unknown) Result panel 274 (unknown) (no date) (unknown) All (no value) (units unknown ) (unknown) Result panel 275 (unknown) (no date) (unknown) All (no value) (units unknown ) (unknown) Result panel 276 (unknown) (no date) (unknown) All (no value) (units unknown ) (unknown) Result panel 277 (unknown) (no date) (unknown) All (no value) (units unknown ) (unknown) Result panel 278 (unknown) (no date) (unknown) All (no value) (units unknown ) (unknown) Result panel 279 (unknown) (no date) (unknown) All (no value) (units unknown ) (unknown) Result panel 280 (unknown) (no date) (unknown) All (no value) (units unknown ) (unknown) Result panel 281 (unknown) (no date) (unknown) All (no value) (units unknown ) (unknown) Result panel 282 (unknown) (no date) (unknown) All (no value) (units unknown ) (unknown) Result panel 283 (unknown) (no date) (unknown) All (no value) (units unknown ) (unknown) Result panel 284 (unknown) (no date) (unknown) All (no value) (units unknown ) (unknown) Result panel 285 (unknown) (no date) (unknown) All (no value) (units unknown ) (unknown) Result panel 286 (unknown) (no date) (unknown) All (no value) (units unknown ) (unknown) Result panel 287 (unknown) (no date) (unknown) All (no value) (units unknown ) (unknown) Result panel 288 (unknown) (no date) (unknown) All (no value) (units unknown ) (unknown) Result panel 289 (unknown) (no date) (unknown) All (no value) (units unknown ) (unknown) Result panel 290 (unknown) (no date) (unknown) All (no value) (units unknown ) (unknown) Result panel 291 (unknown) (no date) (unknown) All (no value) (units unknown ) (unknown) Result panel 292 (unknown) (no date) (unknown) All (no value) (units unknown ) (unknown) Result panel 293 (unknown) (no date) (unknown) All (no value) (units unknown ) (unknown) Result panel 294 (unknown) (no date) (unknown) All (no value) (units unknown ) (unknown) Result panel 295 (unknown) (no date) (unknown) All (no value) (units unknown ) (unknown) Result panel 296 (unknown) (no date) (unknown) All (no value) (units unknown ) (unknown) Result panel 297 (unknown) (no date) (unknown) All (no value) (units unknown ) (unknown) Result panel 298 (unknown) (no date) (unknown) All (no value) (units unknown ) (unknown) Result panel 299 (unknown) (no date) (unknown) All (no value) (units unknown ) (unknown) Result panel 300 (unknown) (no date) (unknown) All (no value) (units unknown ) (unknown) Result panel 301 (unknown) (no date) (unknown) All (no value) (units unknown ) (unknown) Result panel 302 (unknown) (no date) (unknown) All (no value) (units unknown ) (unknown) Result panel 303 (unknown) (no date) (unknown) All (no value) (units unknown ) (unknown) Result panel 304 (unknown) (no date) (unknown) All (no value) (units unknown ) (unknown) Result panel 305 (unknown) (no date) (unknown) All (no value) (units unknown ) (unknown) Result panel 306 (unknown) (no date) (unknown) All (no value) (units unknown ) (unknown) Result panel 307 (unknown) (no date) (unknown) All (no value) (units unknown ) (unknown) Result panel 308 (unknown) (no date) (unknown) All (no value) (units unknown ) (unknown) Result panel 309 (unknown) (no date) (unknown) All (no value) (units unknown ) (unknown) Result panel 310 (unknown) (no date) (unknown) All (no value) (units unknown ) (unknown) Result panel 311 (unknown) (no date) (unknown) All (no value) (units unknown ) (unknown) Result panel 312 (unknown) (no date) (unknown) All (no value) (units unknown ) (unknown) Result panel 313 (unknown) (no date) (unknown) All (no value) (units unknown ) (unknown) Result panel 314 (unknown) (no date) (unknown) All (no value) (units unknown ) (unknown) Result panel 315 (unknown) (no date) (unknown) All (no value) (units unknown ) (unknown) Result panel 316 (unknown) (no date) (unknown) All (no value) (units unknown ) (unknown) Result panel 317 (unknown) (no date) (unknown) All (no value) (units unknown ) (unknown) Result panel 318 (unknown) (no date) (unknown) All (no value) (units unknown ) (unknown) Result panel 319 (unknown) (no date) (unknown) All (no value) (units unknown ) (unknown) Result panel 320 (unknown) (no date) (unknown) All (no value) (units unknown ) (unknown) Result panel 321 (unknown) (no date) (unknown) All (no value) (units unknown ) (unknown) Result panel 322 (unknown) (no date) (unknown) All (no value) (units unknown ) (unknown) Result panel 323 (unknown) (no date) (unknown) All (no value) (units unknown ) (unknown) Result panel 324 (unknown) (no date) (unknown) All (no value) (units unknown ) (unknown) Result panel 325 (unknown) (no date) (unknown) All (no value) (units unknown ) (unknown) Result panel 326 (unknown) (no date) (unknown) All (no value) (units unknown ) (unknown) Result panel 327 (unknown) (no date) (unknown) All (no value) (units unknown ) (unknown) Result panel 328 (unknown) (no date) (unknown) All (no value) (units unknown ) (unknown) Result panel 329 (unknown) (no date) (unknown) All (no value) (units unknown ) (unknown) Result panel 330 (unknown) (no date) (unknown) All (no value) (units unknown ) (unknown) Result panel 331 (unknown) (no date) (unknown) All (no value) (units unknown ) (unknown) Result panel 332 (unknown) (no date) (unknown) All (no value) (units unknown ) (unknown) Result panel 333 (unknown) (no date) (unknown) All (no value) (units unknown ) (unknown) Result panel 334 (unknown) (no date) (unknown) All (no value) (units unknown ) (unknown) Result panel 335 (unknown) (no date) (unknown) All (no value) (units unknown ) (unknown) Result panel 336 (unknown) (no date) (unknown) All (no value) (units unknown ) (unknown) Result panel 337 (unknown) (no date) (unknown) All (no value) (units unknown ) (unknown) Result panel 338 (unknown) (no date) (unknown) All (no value) (units unknown ) (unknown) Result panel 339 (unknown) (no date) (unknown) All (no value) (units unknown ) (unknown) Result panel 340 (unknown) (no date) (unknown) All (no value) (units unknown ) (unknown) Result panel 341 (unknown) (no date) (unknown) All (no value) (units unknown ) (unknown) Result panel 342 (unknown) (no date) (unknown) All (no value) (units unknown ) (unknown) Result panel 343 (unknown) (no date) (unknown) All (no value) (units unknown ) (unknown) Result panel 344 (unknown) (no date) (unknown) All (no value) (units unknown ) (unknown) Result panel 345 (unknown) (no date) (unknown) All (no value) (units unknown ) (unknown) Result panel 346 (unknown) (no date) (unknown) All (no value) (units unknown ) (unknown) Result panel 347 (unknown) (no date) (unknown) All (no value) (units unknown ) (unknown) Result panel 348 (unknown) (no date) (unknown) All (no value) (units unknown ) (unknown) Result panel 349 (unknown) (no date) (unknown) All (no value) (units unknown ) (unknown) Result panel 350 (unknown) (no date) (unknown) All (no value) (units unknown ) (unknown) Result panel 351 (unknown) (no date) (unknown) All (no value) (units unknown ) (unknown) Result panel 352 (unknown) (no date) (unknown) All (no value) (units unknown ) (unknown) Result panel 353 (unknown) (no date) (unknown) All (no value) (units unknown ) (unknown) Result panel 354 (unknown) (no date) (unknown) All (no value) (units unknown ) (unknown) Result panel 355 (unknown) (no date) (unknown) All (no value) (units unknown ) (unknown) Result panel 356 (unknown) (no date) (unknown) All (no value) (units unknown ) (unknown) Result panel 357 (unknown) (no date) (unknown) All (no value) (units unknown ) (unknown) Result panel 358 (unknown) (no date) (unknown) All (no value) (units unknown ) (unknown) Result panel 359 (unknown) (no date) (unknown) All (no value) (units unknown ) (unknown) Result panel 360 (unknown) (no date) (unknown) All (no value) (units unknown ) (unknown) Result panel 361 (unknown) (no date) (unknown) All (no value) (units unknown ) (unknown) Result panel 362 (unknown) (no date) (unknown) All (no value) (units unknown ) (unknown) Result panel 363 (unknown) (no date) (unknown) All (no value) (units unknown ) (unknown) Result panel 364 (unknown) (no date) (unknown) All (no value) (units unknown ) (unknown) Result panel 365 (unknown) (no date) (unknown) All (no value) (units unknown ) (unknown) Result panel 366 (unknown) (no date) (unknown) All (no value) (units unknown ) (unknown) Result panel 367 (unknown) (no date) (unknown) All (no value) (units unknown ) (unknown) Result panel 368 (unknown) (no date) (unknown) All (no value) (units unknown ) (unknown) Result panel 369 (unknown) (no date) (unknown) All (no value) (units unknown ) (unknown) Result panel 370 (unknown) (no date) (unknown) All (no value) (units unknown ) (unknown) Result panel 371 (unknown) (no date) (unknown) All (no value) (units unknown ) (unknown) Result panel 372 (unknown) (no date) (unknown) All (no value) (units unknown ) (unknown) Result panel 373 (unknown) (no date) (unknown) All (no value) (units unknown ) (unknown) Result panel 374 (unknown) (no date) (unknown) All (no value) (units unknown ) (unknown) Result panel 375 (unknown) (no date) (unknown) All (no value) (units unknown ) (unknown) Result panel 376 (unknown) (no date) (unknown) All (no value) (units unknown ) (unknown) Result panel 377 (unknown) (no date) (unknown) All (no value) (units unknown ) (unknown) Result panel 378 (unknown) (no date) (unknown) All (no value) (units unknown ) (unknown) Result panel 379 (unknown) (no date) (unknown) All (no value) (units unknown ) (unknown) Result panel 380 (unknown) (no date) (unknown) All (no value) (units unknown ) (unknown) Result panel 381 (unknown) (no date) (unknown) All (no value) (units unknown ) (unknown) Result panel 382 (unknown) (no date) (unknown) All (no value) (units unknown ) (unknown) Result panel 383 (unknown) (no date) (unknown) All (no value) (units unknown ) (unknown) Result panel 384 (unknown) (no date) (unknown) All (no value) (units unknown ) (unknown) Result panel 385 (unknown) (no date) (unknown) All (no value) (units unknown ) (unknown) Result panel 386 (unknown) (no date) (unknown) All (no value) (units unknown ) (unknown) Result panel 387 (unknown) (no date) (unknown) All (no value) (units unknown ) (unknown) Result panel 388 (unknown) (no date) (unknown) All (no value) (units unknown ) (unknown) Result panel 389 (unknown) (no date) (unknown) All (no value) (units unknown ) (unknown) Result panel 390 (unknown) (no date) (unknown) All (no value) (units unknown ) (unknown) Result panel 391 (unknown) (no date) (unknown) All (no value) (units unknown ) (unknown) Result panel 392 (unknown) (no date) (unknown) All (no value) (units unknown ) (unknown) Result panel 393 (unknown) (no date) (unknown) All (no value) (units unknown ) (unknown) Result panel 394 (unknown) (no date) (unknown) All (no value) (units unknown ) (unknown) Result panel 395 (unknown) (no date) (unknown) All (no value) (units unknown ) (unknown) Result panel 396 (unknown) (no date) (unknown) All (no value) (units unknown ) (unknown) Result panel 397 (unknown) (no date) (unknown) All (no value) (units unknown ) (unknown) Result panel 398 (unknown) (no date) (unknown) All (no value) (units unknown ) (unknown) Result panel 399 (unknown) (no date) (unknown) All (no value) (units unknown ) (unknown) Result panel 400 (unknown) (no date) (unknown) All (no value) (units unknown ) (unknown) Result panel 401 (unknown) (no date) (unknown) All (no value) (units unknown ) (unknown) Result panel 402 (unknown) (no date) (unknown) All (no value) (units unknown ) (unknown) Result panel 403 (unknown) (no date) (unknown) All (no value) (units unknown ) (unknown) Result panel 404 (unknown) (no date) (unknown) All (no value) (units unknown ) (unknown) Result panel 405 (unknown) (no date) (unknown) All (no value) (units unknown ) (unknown) Result panel 406 (unknown) (no date) (unknown) All (no value) (units unknown ) (unknown) Result panel 407 (unknown) (no date) (unknown) All (no value) (units unknown ) (unknown) Result panel 408 (unknown) (no date) (unknown) All (no value) (units unknown ) (unknown) Result panel 409 (unknown) (no date) (unknown) All (no value) (units unknown ) (unknown) Result panel 410 (unknown) (no date) (unknown) All (no value) (units unknown ) (unknown) Result panel 411 (unknown) (no date) (unknown) All (no value) (units unknown ) (unknown) Result panel 412 (unknown) (no date) (unknown) All (no value) (units unknown ) (unknown) Result panel 413 (unknown) (no date) (unknown) All (no value) (units unknown ) (unknown) Result panel 414 (unknown) (no date) (unknown) All (no value) (units unknown ) (unknown) Result panel 415 (unknown) (no date) (unknown) All (no value) (units unknown ) (unknown) Result panel 416 (unknown) (no date) (unknown) All (no value) (units unknown ) (unknown) Result panel 417 (unknown) (no date) (unknown) All (no value) (units unknown ) (unknown) Result panel 418 (unknown) (no date) (unknown) All (no value) (units unknown ) (unknown) Result panel 419 (unknown) (no date) (unknown) All (no value) (units unknown ) (unknown) Result panel 420 (unknown) (no date) (unknown) All (no value) (units unknown ) (unknown) Result panel 421 (unknown) (no date) (unknown) All (no value) (units unknown ) (unknown) Result panel 422 (unknown) (no date) (unknown) All (no value) (units unknown ) (unknown) Result panel 423 (unknown) (no date) (unknown) All (no value) (units unknown ) (unknown) Result panel 424 (unknown) (no date) (unknown) All (no value) (units unknown ) (unknown) Result panel 425 (unknown) (no date) (unknown) All (no value) (units unknown ) (unknown) Result panel 426 (unknown) (no date) (unknown) All (no value) (units unknown ) (unknown) Result panel 427 (unknown) (no date) (unknown) All (no value) (units unknown ) (unknown) Result panel 428 (unknown) (no date) (unknown) All (no value) (units unknown ) (unknown) Result panel 429 (unknown) (no date) (unknown) All (no value) (units unknown ) (unknown) Result panel 430 (unknown) (no date) (unknown) All (no value) (units unknown ) (unknown) Result panel 431 (unknown) (no date) (unknown) All (no value) (units unknown ) (unknown) Result panel 432 (unknown) (no date) (unknown) All (no value) (units unknown ) (unknown) Result panel 433 (unknown) (no date) (unknown) All (no value) (units unknown ) (unknown) Result panel 434 (unknown) (no date) (unknown) All (no value) (units unknown ) (unknown) Result panel 435 (unknown) (no date) (unknown) All (no value) (units unknown ) (unknown) Result panel 436 (unknown) (no date) (unknown) All (no value) (units unknown ) (unknown) Result panel 437 (unknown) (no date) (unknown) All (no value) (units unknown ) (unknown) Result panel 438 (unknown) (no date) (unknown) All (no value) (units unknown ) (unknown) Result panel 439 (unknown) (no date) (unknown) All (no value) (units unknown ) (unknown) Result panel 440 (unknown) (no date) (unknown) All (no value) (units unknown ) (unknown) Result panel 441 (unknown) (no date) (unknown) All (no value) (units unknown ) (unknown) Result panel 442 (unknown) (no date) (unknown) All (no value) (units unknown ) (unknown) Result panel 443 (unknown) (no date) (unknown) All (no value) (units unknown ) (unknown) Result panel 444 (unknown) (no date) (unknown) All (no value) (units unknown ) (unknown) Result panel 445 (unknown) (no date) (unknown) All (no value) (units unknown ) (unknown) Result panel 446 (unknown) (no date) (unknown) All (no value) (units unknown ) (unknown) Result panel 447 (unknown) (no date) (unknown) All (no value) (units unknown ) (unknown) Result panel 448 (unknown) (no date) (unknown) All (no value) (units unknown ) (unknown) Result panel 449 (unknown) (no date) (unknown) All (no value) (units unknown ) (unknown) Result panel 450 (unknown) (no date) (unknown) All (no value) (units unknown ) (unknown) Result panel 451 (unknown) (no date) (unknown) All (no value) (units unknown ) (unknown) Result panel 452 (unknown) (no date) (unknown) All (no value) (units unknown ) (unknown) Result panel 453 (unknown) (no date) (unknown) All (no value) (units unknown ) (unknown) Result panel 454 (unknown) (no date) (unknown) All (no value) (units unknown ) (unknown) Result panel 455 (unknown) (no date) (unknown) All (no value) (units unknown ) (unknown) Result panel 456 (unknown) (no date) (unknown) All (no value) (units unknown ) (unknown) Result panel 457 (unknown) (no date) (unknown) All (no value) (units unknown ) (unknown) Result panel 458 (unknown) (no date) (unknown) All (no value) (units unknown ) (unknown) Result panel 459 (unknown) (no date) (unknown) All (no value) (units unknown ) (unknown) Result panel 460 (unknown) (no date) (unknown) All (no value) (units unknown ) (unknown) Result panel 461 (unknown) (no date) (unknown) All (no value) (units unknown ) (unknown) Result panel 462 (unknown) (no date) (unknown) All (no value) (units unknown ) (unknown) Result panel 463 (unknown) (no date) (unknown) All (no value) (units unknown ) (unknown) Result panel 464 (unknown) (no date) (unknown) All (no value) (units unknown ) (unknown) Result panel 465 (unknown) (no date) (unknown) All (no value) (units unknown ) (unknown) Result panel 466 (unknown) (no date) (unknown) All (no value) (units unknown ) (unknown) Result panel 467 (unknown) (no date) (unknown) All (no value) (units unknown ) (unknown) Result panel 468 (unknown) (no date) (unknown) All (no value) (units unknown ) (unknown) Result panel 469 (unknown) (no date) (unknown) All (no value) (units unknown ) (unknown) Result panel 470 (unknown) (no date) (unknown) All (no value) (units unknown ) (unknown) Result panel 471 (unknown) (no date) (unknown) All (no value) (units unknown ) (unknown) Result panel 472 (unknown) (no date) (unknown) All (no value) (units unknown ) (unknown) Result panel 473 (unknown) (no date) (unknown) All (no value) (units unknown ) (unknown) Result panel 474 (unknown) (no date) (unknown) All (no value) (units unknown ) (unknown) Result panel 475 (unknown) (no date) (unknown) All (no value) (units unknown ) (unknown) Result panel 476 (unknown) (no date) (unknown) All (no value) (units unknown ) (unknown) Result panel 477 (unknown) (no date) (unknown) All (no value) (units unknown ) (unknown) Result panel 478 (unknown) (no date) (unknown) All (no value) (units unknown ) (unknown) Result panel 479 (unknown) (no date) (unknown) All (no value) (units unknown ) (unknown) Result panel 480 (unknown) (no date) (unknown) All (no value) (units unknown ) (unknown) Result panel 481 (unknown) (no date) (unknown) All (no value) (units unknown ) (unknown) Result panel 482 (unknown) (no date) (unknown) All (no value) (units unknown ) (unknown) Result panel 483 (unknown) (no date) (unknown) All (no value) (units unknown ) (unknown) Result panel 484 (unknown) (no date) (unknown) All (no value) (units unknown ) (unknown) Result panel 485 (unknown) (no date) (unknown) All (no value) (units unknown ) (unknown) Result panel 486 (unknown) (no date) (unknown) All (no value) (units unknown ) (unknown) Result panel 487 (unknown) (no date) (unknown) All (no value) (units unknown ) (unknown) Result panel 488 (unknown) (no date) (unknown) All (no value) (units unknown ) (unknown) Result panel 489 (unknown) (no date) (unknown) All (no value) (units unknown ) (unknown) Result panel 490 (unknown) (no date) (unknown) All (no value) (units unknown ) (unknown) Result panel 491 (unknown) (no date) (unknown) All (no value) (units unknown ) (unknown) Result panel 492 (unknown) (no date) (unknown) All (no value) (units unknown ) (unknown) Result panel 493 (unknown) (no date) (unknown) All (no value) (units unknown ) (unknown) Result panel 494 (unknown) (no date) (unknown) All (no value) (units unknown ) (unknown) Result panel 495 (unknown) (no date) (unknown) All (no value) (units unknown ) (unknown) Result panel 496 (unknown) (no date) (unknown) All (no value) (units unknown ) (unknown) Result panel 497 (unknown) (no date) (unknown) All (no value) (units unknown ) (unknown) Result panel 498 (unknown) (no date) (unknown) All (no value) (units unknown ) (unknown) Result panel 499 (unknown) (no date) (unknown) All (no value) (units unknown ) (unknown) Result panel 500 (unknown) (no date) (unknown) All (no value) (units unknown ) (unknown) Result panel 501 (unknown) (no date) (unknown) All (no value) (units unknown ) (unknown) Result panel 502 (unknown) (no date) (unknown) All (no value) (units unknown ) (unknown) Result panel 503 (unknown) (no date) (unknown) All (no value) (units unknown ) (unknown) Result panel 504 (unknown) (no date) (unknown) All (no value) (units unknown ) (unknown) Result panel 505 (unknown) (no date) (unknown) All (no value) (units unknown ) (unknown) Result panel 506 (unknown) (no date) (unknown) All (no value) (units unknown ) (unknown) Result panel 507 (unknown) (no date) (unknown) All (no value) (units unknown ) (unknown) Result panel 508 (unknown) (no date) (unknown) All (no value) (units unknown ) (unknown) Result panel 509 (unknown) (no date) (unknown) All (no value) (units unknown ) (unknown) Result panel 510 (unknown) (no date) (unknown) All (no value) (units unknown ) (unknown) Result panel 511 (unknown) (no date) (unknown) All (no value) (units unknown ) (unknown) Result panel 512 (unknown) (no date) (unknown) All (no value) (units unknown ) (unknown) Result panel 513 (unknown) (no date) (unknown) All (no value) (units unknown ) (unknown) Result panel 514 (unknown) (no date) (unknown) All (no value) (units unknown ) (unknown) Result panel 515 (unknown) (no date) (unknown) All (no value) (units unknown ) (unknown) Result panel 516 (unknown) (no date) (unknown) All (no value) (units unknown ) (unknown) Result panel 517 (unknown) (no date) (unknown) All (no value) (units unknown ) (unknown) Result panel 518 (unknown) (no date) (unknown) All (no value) (units unknown ) (unknown) Result panel 519 (unknown) (no date) (unknown) All (no value) (units unknown ) (unknown) Result panel 520 (unknown) (no date) (unknown) All (no value) (units unknown ) (unknown) Result panel 521 (unknown) (no date) (unknown) All (no value) (units unknown ) (unknown) Result panel 522 (unknown) (no date) (unknown) All (no value) (units unknown ) (unknown) Result panel 523 (unknown) (no date) (unknown) All (no value) (units unknown ) (unknown) Result panel 524 (unknown) (no date) (unknown) All (no value) (units unknown ) (unknown) Result panel 525 (unknown) (no date) (unknown) All (no value) (units unknown ) (unknown) Result panel 526 (unknown) (no date) (unknown) All (no value) (units unknown ) (unknown) Result panel 527 (unknown) (no date) (unknown) All (no value) (units unknown ) (unknown) Result panel 528 (unknown) (no date) (unknown) All (no value) (units unknown ) (unknown) Result panel 529 (unknown) (no date) (unknown) All (no value) (units unknown ) (unknown) Result panel 530 (unknown) (no date) (unknown) All (no value) (units unknown ) (unknown) Result panel 531 (unknown) (no date) (unknown) All (no value) (units unknown ) (unknown) Result panel 532 (unknown) (no date) (unknown) All (no value) (units unknown ) (unknown) Result panel 533 (unknown) (no date) (unknown) All (no value) (units unknown ) (unknown) Result panel 534 (unknown) (no date) (unknown) All (no value) (units unknown ) (unknown) Result panel 535 (unknown) (no date) (unknown) All (no value) (units unknown ) (unknown) Result panel 536 (unknown) (no date) (unknown) All (no value) (units unknown ) (unknown) Result panel 537 (unknown) (no date) (unknown) All (no value) (units unknown ) (unknown) Result panel 538 (unknown) (no date) (unknown) All (no value) (units unknown ) (unknown) Result panel 539 (unknown) (no date) (unknown) All (no value) (units unknown ) (unknown) Result panel 540 (unknown) (no date) (unknown) All (no value) (units unknown ) (unknown) Result panel 541 (unknown) (no date) (unknown) All (no value) (units unknown ) (unknown) Result panel 542 (unknown) (no date) (unknown) All (no value) (units unknown ) (unknown) Result panel 543 (unknown) (no date) (unknown) All (no value) (units unknown ) (unknown) Result panel 544 (unknown) (no date) (unknown) All (no value) (units unknown ) (unknown) Result panel 545 (unknown) (no date) (unknown) All (no value) (units unknown ) (unknown) Result panel 546 (unknown) (no date) (unknown) All (no value) (units unknown ) (unknown) Result panel 547 (unknown) (no date) (unknown) All (no value) (units unknown ) (unknown) Result panel 548 (unknown) (no date) (unknown) All (no value) (units unknown ) (unknown) Result panel 549 (unknown) (no date) (unknown) All (no value) (units unknown ) (unknown) Result panel 550 (unknown) (no date) (unknown) All (no value) (units unknown ) (unknown) Result panel 551 (unknown) (no date) (unknown) All (no value) (units unknown ) (unknown) Result panel 552 (unknown) (no date) (unknown) All (no value) (units unknown ) (unknown) Result panel 553 (unknown) (no date) (unknown) All (no value) (units unknown ) (unknown) Result panel 554 (unknown) (no date) (unknown) All (no value) (units unknown ) (unknown) Result panel 555 (unknown) (no date) (unknown) All (no value) (units unknown ) (unknown) Result panel 556 (unknown) (no date) (unknown) All (no value) (units unknown ) (unknown) Result panel 557 (unknown) (no date) (unknown) All (no value) (units unknown ) (unknown) Result panel 558 (unknown) (no date) (unknown) All (no value) (units unknown ) (unknown) Result panel 559 (unknown) (no date) (unknown) All (no value) (units unknown ) (unknown) Result panel 560 (unknown) (no date) (unknown) All (no value) (units unknown ) (unknown) Result panel 561 (unknown) (no date) (unknown) All (no value) (units unknown ) (unknown) Result panel 562 (unknown) (no date) (unknown) All (no value) (units unknown ) (unknown) Result panel 563 (unknown) (no date) (unknown) All (no value) (units unknown ) (unknown) Result panel 564 (unknown) (no date) (unknown) All (no value) (units unknown ) (unknown) Result panel 565 (unknown) (no date) (unknown) All (no value) (units unknown ) (unknown) Result panel 566 (unknown) (no date) (unknown) All (no value) (units unknown ) (unknown) Result panel 567 (unknown) (no date) (unknown) All (no value) (units unknown ) (unknown) Result panel 568 (unknown) (no date) (unknown) All (no value) (units unknown ) (unknown) Result panel 569 (unknown) (no date) (unknown) All (no value) (units unknown ) (unknown) Result panel 570 (unknown) (no date) (unknown) All (no value) (units unknown ) (unknown) Result panel 571 (unknown) (no date) (unknown) All (no value) (units unknown ) (unknown) Result panel 572 (unknown) (no date) (unknown) All (no value) (units unknown ) (unknown) Result panel 573 (unknown) (no date) (unknown) All (no value) (units unknown ) (unknown) Result panel 574 (unknown) (no date) (unknown) All (no value) (units unknown ) (unknown) Result panel 575 (unknown) (no date) (unknown) All (no value) (units unknown ) (unknown) Result panel 576 (unknown) (no date) (unknown) All (no value) (units unknown ) (unknown) Result panel 577 (unknown) (no date) (unknown) All (no value) (units unknown ) (unknown) Result panel 578 (unknown) (no date) (unknown) All (no value) (units unknown ) (unknown) Result panel 579 (unknown) (no date) (unknown) All (no value) (units unknown ) (unknown) Result panel 580 (unknown) (no date) (unknown) All (no value) (units unknown ) (unknown) Result panel 581 (unknown) (no date) (unknown) All (no value) (units unknown ) (unknown) Result panel 582 (unknown) (no date) (unknown) All (no value) (units unknown ) (unknown) Result panel 583 (unknown) (no date) (unknown) All (no value) (units unknown ) (unknown) Result panel 584 (unknown) (no date) (unknown) All (no value) (units unknown ) (unknown) Result panel 585 (unknown) (no date) (unknown) All (no value) (units unknown ) (unknown) Result panel 586 (unknown) (no date) (unknown) All (no value) (units unknown ) (unknown) Result panel 587 (unknown) (no date) (unknown) All (no value) (units unknown ) (unknown) Result panel 588 (unknown) (no date) (unknown) All (no value) (units unknown ) (unknown) Result panel 589 (unknown) (no date) (unknown) All (no value) (units unknown ) (unknown) Result panel 590 (unknown) (no date) (unknown) All (no value) (units unknown ) (unknown) Result panel 591 (unknown) (no date) (unknown) All (no value) (units unknown ) (unknown) Result panel 592 (unknown) (no date) (unknown) All (no value) (units unknown ) (unknown) Result panel 593 (unknown) (no date) (unknown) All (no value) (units unknown ) (unknown) Result panel 594 (unknown) (no date) (unknown) All (no value) (units unknown ) (unknown) Result panel 595 (unknown) (no date) (unknown) All (no value) (units unknown ) (unknown) Result panel 596 (unknown) (no date) (unknown) All (no value) (units unknown ) (unknown) Result panel 597 (unknown) (no date) (unknown) All (no value) (units unknown ) (unknown) Result panel 598 (unknown) (no date) (unknown) All (no value) (units unknown ) (unknown) Result panel 599 (unknown) (no date) (unknown) All (no value) (units unknown ) (unknown) Result panel 600 (unknown) (no date) (unknown) All (no value) (units unknown ) (unknown) Result panel 601 (unknown) (no date) (unknown) All (no value) (units unknown ) (unknown) Result panel 602 (unknown) (no date) (unknown) All (no value) (units unknown ) (unknown) Result panel 603 (unknown) (no date) (unknown) All (no value) (units unknown ) (unknown) Result panel 604 (unknown) (no date) (unknown) All (no value) (units unknown ) (unknown) Result panel 605 (unknown) (no date) (unknown) All (no value) (units unknown ) (unknown) Result panel 606 (unknown) (no date) (unknown) All (no value) (units unknown ) (unknown) Result panel 607 (unknown) (no date) (unknown) All (no value) (units unknown ) (unknown) Result panel 608 (unknown) (no date) (unknown) All (no value) (units unknown ) (unknown) Result panel 609 (unknown) (no date) (unknown) All (no value) (units unknown ) (unknown) Result panel 610 (unknown) (no date) (unknown) All (no value) (units unknown ) (unknown) Result panel 611 (unknown) (no date) (unknown) All (no value) (units unknown ) (unknown) Result panel 612 (unknown) (no date) (unknown) All (no value) (units unknown ) (unknown) Result panel 613 (unknown) (no date) (unknown) All (no value) (units unknown ) (unknown) Result panel 614 (unknown) (no date) (unknown) All (no value) (units unknown ) (unknown) Result panel 615 (unknown) (no date) (unknown) All (no value) (units unknown ) (unknown) Result panel 616 (unknown) (no date) (unknown) All (no value) (units unknown ) (unknown) Result panel 617 (unknown) (no date) (unknown) All (no value) (units unknown ) (unknown) Result panel 618 (unknown) (no date) (unknown) All (no value) (units unknown ) (unknown) Result panel 619 (unknown) (no date) (unknown) All (no value) (units unknown ) (unknown) Result panel 620 (unknown) (no date) (unknown) All (no value) (units unknown ) (unknown) Result panel 621 (unknown) (no date) (unknown) All (no value) (units unknown ) (unknown) Result panel 622 (unknown) (no date) (unknown) All (no value) (units unknown ) (unknown) Result panel 623 (unknown) (no date) (unknown) All (no value) (units unknown ) (unknown) Result panel 624 (unknown) (no date) (unknown) All (no value) (units unknown ) (unknown) Result panel 625 (unknown) (no date) (unknown) All (no value) (units unknown ) (unknown) Result panel 626 (unknown) (no date) (unknown) All (no value) (units unknown ) (unknown) Result panel 627 (unknown) (no date) (unknown) All (no value) (units unknown ) (unknown) Result panel 628 (unknown) (no date) (unknown) All (no value) (units unknown ) (unknown) Result panel 629 (unknown) (no date) (unknown) All (no value) (units unknown ) (unknown) Result panel 630 (unknown) (no date) (unknown) All (no value) (units unknown ) (unknown) Result panel 631 (unknown) (no date) (unknown) All (no value) (units unknown ) (unknown) Result panel 632 (unknown) (no date) (unknown) All (no value) (units unknown ) (unknown) Result panel 633 (unknown) (no date) (unknown) All (no value) (units unknown ) (unknown) Result panel 634 (unknown) (no date) (unknown) All (no value) (units unknown ) (unknown) Result panel 635 (unknown) (no date) (unknown) All (no value) (units unknown ) (unknown) Result panel 636 (unknown) (no date) (unknown) All (no value) (units unknown ) (unknown) Result panel 637 (unknown) (no date) (unknown) All (no value) (units unknown ) (unknown) Result panel 638 (unknown) (no date) (unknown) All (no value) (units unknown ) (unknown) Result panel 639 (unknown) (no date) (unknown) All (no value) (units unknown ) (unknown) Result panel 640 (unknown) (no date) (unknown) All (no value) (units unknown ) (unknown) Result panel 641 (unknown) (no date) (unknown) All (no value) (units unknown ) (unknown) Result panel 642 (unknown) (no date) (unknown) All (no value) (units unknown ) (unknown) Result panel 643 (unknown) (no date) (unknown) All (no value) (units unknown ) (unknown) Result panel 644 (unknown) (no date) (unknown) All (no value) (units unknown ) (unknown) Result panel 645 (unknown) (no date) (unknown) All (no value) (units unknown ) (unknown) Result panel 646 (unknown) (no date) (unknown) All (no value) (units unknown ) (unknown) Result panel 647 (unknown) (no date) (unknown) All (no value) (units unknown ) (unknown) Result panel 648 (unknown) (no date) (unknown) All (no value) (units unknown ) (unknown) Result panel 649 (unknown) (no date) (unknown) All (no value) (units unknown ) (unknown) Result panel 650 (unknown) (no date) (unknown) All (no value) (units unknown ) (unknown) Result panel 651 (unknown) (no date) (unknown) All (no value) (units unknown ) (unknown) Result panel 652 (unknown) (no date) (unknown) All (no value) (units unknown ) (unknown) Result panel 653 (unknown) (no date) (unknown) All (no value) (units unknown ) (unknown) Result panel 654 (unknown) (no date) (unknown) All (no value) (units unknown ) (unknown) Result panel 655 (unknown) (no date) (unknown) All (no value) (units unknown ) (unknown) Result panel 656 (unknown) (no date) (unknown) All (no value) (units unknown ) (unknown) Result panel 657 (unknown) (no date) (unknown) All (no value) (units unknown ) (unknown) Result panel 658 (unknown) (no date) (unknown) All (no value) (units unknown ) (unknown) Result panel 659 (unknown) (no date) (unknown) All (no value) (units unknown ) (unknown) Result panel 660 (unknown) (no date) (unknown) All (no value) (units unknown ) (unknown) Result panel 661 (unknown) (no date) (unknown) All (no value) (units unknown ) (unknown) Result panel 662 (unknown) (no date) (unknown) All (no value) (units unknown ) (unknown) Result panel 663 (unknown) (no date) (unknown) All (no value) (units unknown ) (unknown) Result panel 664 (unknown) (no date) (unknown) All (no value) (units unknown ) (unknown) Result panel 665 (unknown) (no date) (unknown) All (no value) (units unknown ) (unknown) Result panel 666 (unknown) (no date) (unknown) All (no value) (units unknown ) (unknown) Result panel 667 (unknown) (no date) (unknown) All (no value) (units unknown ) (unknown) Result panel 668 (unknown) (no date) (unknown) All (no value) (units unknown ) (unknown) Result panel 669 (unknown) (no date) (unknown) All (no value) (units unknown ) (unknown) Result panel 670 (unknown) (no date) (unknown) All (no value) (units unknown ) (unknown) Result panel 671 (unknown) (no date) (unknown) All (no value) (units unknown ) (unknown) Result panel 672 (unknown) (no date) (unknown) All (no value) (units unknown ) (unknown) Result panel 673 (unknown) (no date) (unknown) All (no value) (units unknown ) (unknown) Result panel 674 (unknown) (no date) (unknown) All (no value) (units unknown ) (unknown) Result panel 675 (unknown) (no date) (unknown) All (no value) (units unknown ) (unknown) Result panel 676 (unknown) (no date) (unknown) All (no value) (units unknown ) (unknown) Result panel 677 (unknown) (no date) (unknown) All (no value) (units unknown ) (unknown) Result panel 678 (unknown) (no date) (unknown) All (no value) (units unknown ) (unknown) Result panel 679 (unknown) (no date) (unknown) All (no value) (units unknown ) (unknown) Result panel 680 (unknown) (no date) (unknown) All (no value) (units unknown ) (unknown) Result panel 681 (unknown) (no date) (unknown) All (no value) (units unknown ) (unknown) Result panel 682 (unknown) (no date) (unknown) All (no value) (units unknown ) (unknown) Result panel 683 (unknown) (no date) (unknown) All (no value) (units unknown ) (unknown) Result panel 684 (unknown) (no date) (unknown) All (no value) (units unknown ) (unknown) Result panel 685 (unknown) (no date) (unknown) All (no value) (units unknown ) (unknown) Result panel 686 (unknown) (no date) (unknown) All (no value) (units unknown ) (unknown) Result panel 687 (unknown) (no date) (unknown) All (no value) (units unknown ) (unknown) Result panel 688 (unknown) (no date) (unknown) All (no value) (units unknown ) (unknown) Result panel 689 (unknown) (no date) (unknown) All (no value) (units unknown ) (unknown) Result panel 690 (unknown) (no date) (unknown) All (no value) (units unknown ) (unknown) Result panel 691 (unknown) (no date) (unknown) All (no value) (units unknown ) (unknown) Result panel 692 (unknown) (no date) (unknown) All (no value) (units unknown ) (unknown) Result panel 693 (unknown) (no date) (unknown) All (no value) (units unknown ) (unknown) Result panel 694 (unknown) (no date) (unknown) All (no value) (units unknown ) (unknown) Result panel 695 (unknown) (no date) (unknown) All (no value) (units unknown ) (unknown) Result panel 696 (unknown) (no date) (unknown) All (no value) (units unknown ) (unknown) Result panel 697 (unknown) (no date) (unknown) All (no value) (units unknown ) (unknown) Result panel 698 (unknown) (no date) (unknown) All (no value) (units unknown ) (unknown) Result panel 699 (unknown) (no date) (unknown) All (no value) (units unknown ) (unknown) Result panel 700 (unknown) (no date) (unknown) All (no value) (units unknown ) (unknown) Result panel 701 (unknown) (no date) (unknown) All (no value) (units unknown ) (unknown) Result panel 702 (unknown) (no date) (unknown) All (no value) (units unknown ) (unknown) Result panel 703 (unknown) (no date) (unknown) All (no value) (units unknown ) (unknown) Result panel 704 (unknown) (no date) (unknown) All (no value) (units unknown ) (unknown) Result panel 705 (unknown) (no date) (unknown) All (no value) (units unknown ) (unknown) Result panel 706 (unknown) (no date) (unknown) All (no value) (units unknown ) (unknown) Result panel 707 (unknown) (no date) (unknown) All (no value) (units unknown ) (unknown) Result panel 708 (unknown) (no date) (unknown) All (no value) (units unknown ) (unknown) Result panel 709 (unknown) (no date) (unknown) All (no value) (units unknown ) (unknown) Result panel 710 (unknown) (no date) (unknown) All (no value) (units unknown ) (unknown) Result panel 711 (unknown) (no date) (unknown) All (no value) (units unknown ) (unknown) Result panel 712 (unknown) (no date) (unknown) All (no value) (units unknown ) (unknown) Result panel 713 (unknown) (no date) (unknown) All (no value) (units unknown ) (unknown) Result panel 714 (unknown) (no date) (unknown) All (no value) (units unknown ) (unknown) Result panel 715 (unknown) (no date) (unknown) All (no value) (units unknown ) (unknown) Result panel 716 (unknown) (no date) (unknown) All (no value) (units unknown ) (unknown) Result panel 717 (unknown) (no date) (unknown) All (no value) (units unknown ) (unknown) Result panel 718 (unknown) (no date) (unknown) All (no value) (units unknown ) (unknown) Result panel 719 (unknown) (no date) (unknown) All (no value) (units unknown ) (unknown) Result panel 720 (unknown) (no date) (unknown) All (no value) (units unknown ) (unknown) Result panel 721 (unknown) (no date) (unknown) All (no value) (units unknown ) (unknown) Result panel 722 (unknown) (no date) (unknown) All (no value) (units unknown ) (unknown) Result panel 723 (unknown) (no date) (unknown) All (no value) (units unknown ) (unknown) Result panel 724 (unknown) (no date) (unknown) All (no value) (units unknown ) (unknown) Result panel 725 (unknown) (no date) (unknown) All (no value) (units unknown ) (unknown) Result panel 726 (unknown) (no date) (unknown) All (no value) (units unknown ) (unknown) Result panel 727 (unknown) (no date) (unknown) All (no value) (units unknown ) (unknown) Result panel 728 (unknown) (no date) (unknown) All (no value) (units unknown ) (unknown) Result panel 729 (unknown) (no date) (unknown) All (no value) (units unknown ) (unknown) Result panel 730 (unknown) (no date) (unknown) All (no value) (units unknown ) (unknown) Result panel 731 (unknown) (no date) (unknown) All (no value) (units unknown ) (unknown) Result panel 732 (unknown) (no date) (unknown) All (no value) (units unknown ) (unknown) Result panel 733 (unknown) (no date) (unknown) All (no value) (units unknown ) (unknown) Result panel 734 (unknown) (no date) (unknown) All (no value) (units unknown ) (unknown) Result panel 735 (unknown) (no date) (unknown) All (no value) (units unknown ) (unknown) Result panel 736 (unknown) (no date) (unknown) All (no value) (units unknown ) (unknown) Result panel 737 (unknown) (no date) (unknown) All (no value) (units unknown ) (unknown) Result panel 738 (unknown) (no date) (unknown) All (no value) (units unknown ) (unknown) Result panel 739 (unknown) (no date) (unknown) All (no value) (units unknown ) (unknown) Result panel 740 (unknown) (no date) (unknown) All (no value) (units unknown ) (unknown) Result panel 741 (unknown) (no date) (unknown) All (no value) (units unknown ) (unknown) Result panel 742 (unknown) (no date) (unknown) All (no value) (units unknown ) (unknown) Result panel 743 (unknown) (no date) (unknown) All (no value) (units unknown ) (unknown) Result panel 744 (unknown) (no date) (unknown) All (no value) (units unknown ) (unknown) Result panel 745 (unknown) (no date) (unknown) All (no value) (units unknown ) (unknown) Result panel 746 (unknown) (no date) (unknown) All (no value) (units unknown ) (unknown) Result panel 747 (unknown) (no date) (unknown) All (no value) (units unknown ) (unknown) Result panel 748 (unknown) (no date) (unknown) All (no value) (units unknown ) (unknown) Result panel 749 (unknown) (no date) (unknown) All (no value) (units unknown ) (unknown) Result panel 750 (unknown) (no date) (unknown) All (no value) (units unknown ) (unknown) Result panel 751 (unknown) (no date) (unknown) All (no value) (units unknown ) (unknown) Result panel 752 (unknown) (no date) (unknown) All (no value) (units unknown ) (unknown) Result panel 753 (unknown) (no date) (unknown) All (no value) (units unknown ) (unknown) Result panel 754 (unknown) (no date) (unknown) All (no value) (units unknown ) (unknown) Result panel 755 (unknown) (no date) (unknown) All (no value) (units unknown ) (unknown) Result panel 756 (unknown) (no date) (unknown) All (no value) (units unknown ) (unknown) Result panel 757 (unknown) (no date) (unknown) All (no value) (units unknown ) (unknown) Result panel 758 (unknown) (no date) (unknown) All (no value) (units unknown ) (unknown) Result panel 759 (unknown) (no date) (unknown) All (no value) (units unknown ) (unknown) Result panel 760 (unknown) (no date) (unknown) All (no value) (units unknown ) (unknown) Result panel 761 (unknown) (no date) (unknown) All (no value) (units unknown ) (unknown) Result panel 762 (unknown) (no date) (unknown) All (no value) (units unknown ) (unknown) Result panel 763 (unknown) (no date) (unknown) All (no value) (units unknown ) (unknown) Result panel 764 (unknown) (no date) (unknown) All (no value) (units unknown ) (unknown) Result panel 765 (unknown) (no date) (unknown) All (no value) (units unknown ) (unknown) Result panel 766 (unknown) (no date) (unknown) All (no value) (units unknown ) (unknown) Result panel 767 (unknown) (no date) (unknown) All (no value) (units unknown ) (unknown) Result panel 768 (unknown) (no date) (unknown) All (no value) (units unknown ) (unknown) Result panel 769 (unknown) (no date) (unknown) All (no value) (units unknown ) (unknown) Result panel 770 (unknown) (no date) (unknown) All (no value) (units unknown ) (unknown) Result panel 771 (unknown) (no date) (unknown) All (no value) (units unknown ) (unknown) Result panel 772 (unknown) (no date) (unknown) All (no value) (units unknown ) (unknown) Result panel 773 (unknown) (no date) (unknown) All (no value) (units unknown ) (unknown) Result panel 774 (unknown) (no date) (unknown) All (no value) (units unknown ) (unknown) Result panel 775 (unknown) (no date) (unknown) All (no value) (units unknown ) (unknown) Result panel 776 (unknown) (no date) (unknown) All (no value) (units unknown ) (unknown) Result panel 777 (unknown) (no date) (unknown) All (no value) (units unknown ) (unknown) Result panel 778 (unknown) (no date) (unknown) All (no value) (units unknown ) (unknown) Result panel 779 (unknown) (no date) (unknown) All (no value) (units unknown ) (unknown) Result panel 780 (unknown) (no date) (unknown) All (no value) (units unknown ) (unknown) Result panel 781 (unknown) (no date) (unknown) All (no value) (units unknown ) (unknown) Result panel 782 (unknown) (no date) (unknown) All (no value) (units unknown ) (unknown) Result panel 783 (unknown) (no date) (unknown) All (no value) (units unknown ) (unknown) Result panel 784 (unknown) (no date) (unknown) All (no value) (units unknown ) (unknown) Result panel 785 (unknown) (no date) (unknown) All (no value) (units unknown ) (unknown) Result panel 786 (unknown) (no date) (unknown) All (no value) (units unknown ) (unknown) Result panel 787 (unknown) (no date) (unknown) All (no value) (units unknown ) (unknown) Result panel 788 (unknown) (no date) (unknown) All (no value) (units unknown ) (unknown) Result panel 789 (unknown) (no date) (unknown) All (no value) (units unknown ) (unknown) Result panel 790 (unknown) (no date) (unknown) All (no value) (units unknown ) (unknown) Result panel 791 (unknown) (no date) (unknown) All (no value) (units unknown ) (unknown) Result panel 792 (unknown) (no date) (unknown) All (no value) (units unknown ) (unknown) Result panel 793 (unknown) (no date) (unknown) All (no value) (units unknown ) (unknown) Result panel 794 (unknown) (no date) (unknown) All (no value) (units unknown ) (unknown) Result panel 795 (unknown) (no date) (unknown) All (no value) (units unknown ) (unknown) Result panel 796 (unknown) (no date) (unknown) All (no value) (units unknown ) (unknown) Result panel 797 (unknown) (no date) (unknown) All (no value) (units unknown ) (unknown) Result panel 798 (unknown) (no date) (unknown) All (no value) (units unknown ) (unknown) Result panel 799 (unknown) (no date) (unknown) All (no value) (units unknown ) (unknown) Result panel 800 (unknown) (no date) (unknown) All (no value) (units unknown ) (unknown) Result panel 801 (unknown) (no date) (unknown) All (no value) (units unknown ) (unknown) Result panel 802 (unknown) (no date) (unknown) All (no value) (units unknown ) (unknown) Result panel 803 (unknown) (no date) (unknown) All (no value) (units unknown ) (unknown) Result panel 804 (unknown) (no date) (unknown) All (no value) (units unknown ) (unknown) Result panel 805 (unknown) (no date) (unknown) All (no value) (units unknown ) (unknown) Result panel 806 (unknown) (no date) (unknown) All (no value) (units unknown ) (unknown) Result panel 807 (unknown) (no date) (unknown) All (no value) (units unknown ) (unknown) Result panel 808 (unknown) (no date) (unknown) All (no value) (units unknown ) (unknown) Result panel 809 (unknown) (no date) (unknown) All (no value) (units unknown ) (unknown) Result panel 810 (unknown) (no date) (unknown) All (no value) (units unknown ) (unknown) Result panel 811 (unknown) (no date) (unknown) All (no value) (units unknown ) (unknown) Result panel 812 (unknown) (no date) (unknown) All (no value) (units unknown ) (unknown) Result panel 813 (unknown) (no date) (unknown) All (no value) (units unknown ) (unknown) Result panel 814 (unknown) (no date) (unknown) All (no value) (units unknown ) (unknown) Result panel 815 (unknown) (no date) (unknown) All (no value) (units unknown ) (unknown) Result panel 816 (unknown) (no date) (unknown) All (no value) (units unknown ) (unknown) Result panel 817 (unknown) (no date) (unknown) All (no value) (units unknown ) (unknown) Result panel 818 (unknown) (no date) (unknown) All (no value) (units unknown ) (unknown) Result panel 819 (unknown) (no date) (unknown) All (no value) (units unknown ) (unknown) Result panel 820 (unknown) (no date) (unknown) All (no value) (units unknown ) (unknown) Result panel 821 (unknown) (no date) (unknown) All (no value) (units unknown ) (unknown) Result panel 822 (unknown) (no date) (unknown) All (no value) (units unknown ) (unknown) Result panel 823 (unknown) (no date) (unknown) All (no value) (units unknown ) (unknown) Result panel 824 (unknown) (no date) (unknown) All (no value) (units unknown ) (unknown) Result panel 825 (unknown) (no date) (unknown) All (no value) (units unknown ) (unknown) Result panel 826 (unknown) (no date) (unknown) All (no value) (units unknown ) (unknown) Result panel 827 (unknown) (no date) (unknown) All (no value) (units unknown ) (unknown) Result panel 828 (unknown) (no date) (unknown) All (no value) (units unknown ) (unknown) Result panel 829 (unknown) (no date) (unknown) All (no value) (units unknown ) (unknown) Result panel 830 (unknown) (no date) (unknown) All (no value) (units unknown ) (unknown) Result panel 831 (unknown) (no date) (unknown) All (no value) (units unknown ) (unknown) Result panel 832 (unknown) (no date) (unknown) All (no value) (units unknown ) (unknown) Result panel 833 (unknown) (no date) (unknown) All (no value) (units unknown ) (unknown) Result panel 834 (unknown) (no date) (unknown) All (no value) (units unknown ) (unknown) Result panel 835 (unknown) (no date) (unknown) All (no value) (units unknown ) (unknown) Result panel 836 (unknown) (no date) (unknown) All (no value) (units unknown ) (unknown) Result panel 837 (unknown) (no date) (unknown) All (no value) (units unknown ) (unknown) Result panel 838 (unknown) (no date) (unknown) All (no value) (units unknown ) (unknown) Result panel 839 (unknown) (no date) (unknown) All (no value) (units unknown ) (unknown) Result panel 840 (unknown) (no date) (unknown) All (no value) (units unknown ) (unknown) Result panel 841 (unknown) (no date) (unknown) All (no value) (units unknown ) (unknown) Result panel 842 (unknown) (no date) (unknown) All (no value) (units unknown ) (unknown) Result panel 843 (unknown) (no date) (unknown) All (no value) (units unknown ) (unknown) Result panel 844 (unknown) (no date) (unknown) All (no value) (units unknown ) (unknown) Result panel 845 (unknown) (no date) (unknown) All (no value) (units unknown ) (unknown) Result panel 846 (unknown) (no date) (unknown) All (no value) (units unknown ) (unknown) Result panel 847 (unknown) (no date) (unknown) All (no value) (units unknown ) (unknown) Result panel 848 (unknown) (no date) (unknown) All (no value) (units unknown ) (unknown) Result panel 849 (unknown) (no date) (unknown) All (no value) (units unknown ) (unknown) Result panel 850 (unknown) (no date) (unknown) All (no value) (units unknown ) (unknown) Result panel 851 (unknown) (no date) (unknown) All (no value) (units unknown ) (unknown) Result panel 852 (unknown) (no date) (unknown) All (no value) (units unknown ) (unknown) Result panel 853 (unknown) (no date) (unknown) All (no value) (units unknown ) (unknown) Result panel 854 (unknown) (no date) (unknown) All (no value) (units unknown ) (unknown) Result panel 855 (unknown) (no date) (unknown) All (no value) (units unknown ) (unknown) Result panel 856 (unknown) (no date) (unknown) All (no value) (units unknown ) (unknown) Result panel 857 (unknown) (no date) (unknown) All (no value) (units unknown ) (unknown) Result panel 858 (unknown) (no date) (unknown) All (no value) (units unknown ) (unknown) Result panel 859 (unknown) (no date) (unknown) All (no value) (units unknown ) (unknown) Result panel 860 (unknown) (no date) (unknown) All (no value) (units unknown ) (unknown) Social History date description facility 2022-11-13 00:00 Never smoker All 2022-11-13 00:00 Never smoker All 2022-11-13 00:00 Never smoker All 2022-11-13 00:00 Never smoker All 2022-11-13 00:00 Never smoker All 2022-11-13 00:00 Never smoker All 2022-12-04 00:00 Never smoker All 2022-12-04 00:00 Never smoker All 2022-12-05 00:00 Never smoker All Vital Signs date measurement value units 2022-11-13 00:00 BMI 31.50 kg/m2 2022-11-13 00:00 height_metric 157.48 cm 2022-11-13 00:00 height_standard 62 in 2022-11-13 00:00 weight_metric 77.84 kg 2022-11-13 00:00 weight_standard 171.6 lb 2022-11-17 00:00 BMI 31.57 kg/m2 2022-11-17 00:00 BP_diastolic 67 mmHg 2022-11-17 00:00 BP_systolic 124 mmHg 2022-11-17 00:00 heart_rate 82 /min 2022-11-17 00:00 height_metric 157.48 cm 2022-11-17 00:00 height_standard 62 in 2022-11-17 00:00 respiration_rate 18 /min 2022-11-17 00:00 temperature_metric 37.17 C 2022-11-17 00:00 temperature_standard 98.9 F 2022-11-17 00:00 weight_metric 78.02 kg 2022-11-17 00:00 weight_standard 172 lb 2022-11-19 00:00 BMI 31.57 kg/m2 2022-11-19 00:00 BP_diastolic 74 mmHg 2022-11-19 00:00 BP_systolic 113 mmHg 2022-11-19 00:00 heart_rate 66 /min 2022-11-19 00:00 height_metric 157.48 cm 2022-11-19 00:00 height_standard 62 in 2022-11-19 00:00 respiration_rate 18 /min 2022-11-19 00:00 temperature_metric 36.94 C 2022-11-19 00:00 temperature_standard 98.5 F 2022-11-19 00:00 weight_metric 78.02 kg 2022-11-19 00:00 weight_standard 172 lb 2022-12-04 00:00 BMI 31.57 kg/m2 2022-12-04 00:00 BP_diastolic 64 mmHg 2022-12-04 00:00 BP_systolic 104 mmHg 2022-12-04 00:00 heart_rate 69 /min 2022-12-04 00:00 height_metric 157.48 cm 2022-12-04 00:00 height_standard 62 in 2022-12-04 00:00 respiration_rate 16 /min 2022-12-04 00:00 temperature_metric 36.5 C 2022-12-04 00:00 temperature_standard 97.7 F 2022-12-04 00:00 weight_metric 78.02 kg 2022-12-04 00:00 weight_standard 172 lb 2022-12-05 00:00 BMI 31.57 kg/m2 2022-12-05 00:00 BP_diastolic 50 mmHg 2022-12-05 00:00 BP_systolic 110 mmHg 2022-12-05 00:00 height_metric 157.48 cm 2022-12-05 00:00 height_standard 62 in 2022-12-05 00:00 temperature_metric -12.39 C 2022-12-05 00:00 temperature_standard 9.7 F 2022-12-05 00:00 weight_metric 78.02 kg 2022-12-05 00:00 weight_standard 172 lb
[2022-12-23 10:59] LABS: BILIRUBIN,URINE NEGATIVE (NEGATIVE); GLUCOSE, URINE (UA) NEGATIVE (NEGATIVE); KETONES,URINE (UA) NEGATIVE (NEGATIVE); LEUKOCYTE ESTERASE, URINE TRACE (NEGATIVE); NITRITE,URINE NEGATIVE (NEGATIVE); OCCULT BLOOD,URINE NEGATIVE (NEGATIVE); PROTEIN,URINE NEGATIVE (NEGATIVE); UROBILINOGEN,URINE 0.2 (NORMAL) E.U./dL (NORMAL)
[2022-12-23 11:00] LABS: CLARITY,URINE HAZY (CLEAR); HCG UR QUAL POSITIVE
[2022-12-23 11:05] LABS: RBC,URINE 0-5 /HPF (0-5); SQUAMOUS EPITHELIAL CELL,UR FEW Squamous (<= Few)
[2022-12-23 11:06] LABS: BACTERIA,URINE Few /HPF (None Seen)
--- NOTE | 2022-12-23 11:44 | ED Physician Documentation ---
History of Present Illness - Stated complaint Stated Complaint: 12 WEEKS/CRAMPING - Chief complaint Chief Complaint: Abd Pain - Additonal information Additional information: 21-year-old female provides history. Reliable historian. Reports being approximately 12 weeks . G1, P0. States that this morning she began having some abdominal cramping and left-sided abdominal pain. She reports that she had a hard bowel movement and there was some blood in it. She is denying any vaginal bleeding. No dysuria urgency or frequency. She is followed by our [facility] clinic. She is also concerned that she could be developing high blood pressure. Reportedly when she entered triage she was anxious and upset and she had a blood pressure of 136/80. However after she had sat in the exam area for about 5 minutes and rested we retook her blood pressure and it was 108/66. 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 : None HEENT: None Psych: None Musculoskeletal: None Derm: None - Past Surgical History Past Surgical History: No - Present Medications Home Medications: Ambulatory Orders Medication Instructions Recorded Confirmed Ondansetron HCl 4 mg PO Q8HR PRN 11/20/22 12/23/22 Vit No.130/Iron/Folic 1 tab PO DAILY 11/20/22 12/23/22 [ Tablet] cephALEXin [Keflex] 500 mg PO BID #14 cap 12/23/22 - Allergies Allergies/Adverse Reactions: Allergies Allergy/AdvReac Type Severity Reaction Status Date / Time No Known Drug Allergies Allergy Verified 12/23/22 09:57 - Social History Does the pt smoke?: No Smoking Status: Never smoker Does the pt drink ETOH?: No Does the pt have substance abuse?: No - Immunizations Immunizations are current?: Yes - POLST Patient has POLST: No PD ED PE NORMAL - General General: Alert and oriented X 3, No acute distress, Well developed/nourished - HEENT HEENT: Atraumatic, Moist mucous membranes, Pharynx benign - Neck Neck: Supple, no meningeal sign, No adenopathy - Cardiac Cardiac: RRR, No murmur - Respiratory Respiratory: No respiratory distress, Clear bilaterally - Abdomen Abdomen: Normal bowel sounds, Soft, Non tender (No significant abdominal tenderness elicited.) - Female Female : Other (Limited bedside transabdominal pelvic ultrasound reveals a fetus with a heart rate of 146. Fetus had active movement.) - Derm Derm: Normal color, Warm and dry, No rash - Extremities Extremities: No deformity - Neuro Neuro: Alert and oriented X 3, development scientist 2-12 intact Eye Opening: Spontaneous Motor: Obeys Commands Verbal: Oriented GCS Score: 15 Results - Vitals Vitals: Vital Signs - 24 hr 12/23/22 12/23/22 12/23/22 09:57 10:00 11:40 Temperature 36.4 C L Heart Rate 96 73 Respiratory 18 18 Rate Blood Pressure 136/60 H 108/65 108/66 O2 Saturation 99 100 Oxygen O2 Source Room air - Labs Labs: Laboratory Tests 12/23/22 10:46 Urine Color YELLOW Urine Clarity HAZY Urine pH 7.0 Ur Specific Wilmot 1.015 Urine Protein NEGATIVE Urine Glucose (UA) NEGATIVE Urine Ketones NEGATIVE Urine Occult Blood NEGATIVE Urine Nitrite NEGATIVE Urine Bilirubin NEGATIVE Urine Urobilinogen 0.2 (NORMAL) Ur Leukocyte Esterase TRACE H Urine RBC 0-5 Urine WBC 4-5 Ur Squamous Epith Cells FEW Squamous Urine Bacteria Few Ur Microscopic Review INDICATED Urine Culture Comments INDICATED Urine HCG, Qual POSITIVE PD Medical Decision Making - ED course Complexity details: reviewed results, considered differential, d/w patient ED course: 21-year-old female G1, P0 reportedly 12 weeks presents the emergency department for evaluation of left-sided abdominal pain and cramping. Reports having a hard constipated bowel movement this morning in which she noticed a small amount of blood. She is denying any vaginal bleeding or discharge. She is also concerned she could be developing hypertension in . With regards to her hypertension her initial blood pressures were 136 over 80s. However she was anxious and upset in triage. After she been back back to the ex am room allowed a period of rest and relaxation repeat blood pressure was 108/66. As such I do not believe that she is developing hypertension in We did evaluate her urinalysis and I do find a small amount of bacteria in it. We we will treat the bacteria in with a weeklong course of Keflex. I did do a limited transabdominal pelvic ultrasound and find a living IUP with a good heart rate in the 140s. Baby had good movement. I suspect that the cause of her cramping and left-sided abdominal pain was simply constipation in . I making the recommendation to use Colace 200 mg once or twice daily or alternate with MiraLAX. She is scheduled to follow-up with her OB group shortly. We discussed the usual emergent return precautions. Departure - Departure Disposition: 01 Home, Self Care Clinical Impression: Bacteria in urine Constipation during Qualifiers: Trimester: first trimester Qualified Code(s): O99.611 - Diseases of the digestive system complicating , first trimester; K59.00 - Constipation, unspecified Condition: Stable Record reviewed to determine appropriate education?: Yes Follow-Up: Natalee Shelton ARNP [Provider Admit Priv/Credential] - Prescriptions: cephALEXin [Keflex] 500 mg PO BID #14 cap Comments: Keiry came to the emergency department because this morning you had some cramping, left-sided abdominal pain, constipation and small amount of blood in your stool. Constipation is common in and can worsen as you continue. I do recommend that you take 200 mg of Colace once or twice a day until you have normal bowel movements. Otherwise you can alternate with 17 g of MiraLAX or 1 capful with an 8 ounce glass of water. I suspect that the cause of your cramping and left-sided abdominal pain was constipation. When we look at your urine there is a small amount of bacteria in it. Though I do not believe you actually have a urinary tract infection, we always treat bacteriuria in . A prescription for Keflex has been [place] the [email or web address] [place] in [place]. If you are going to start checking your blood pressures. I do recommend that you buy a blood pressure monitor that uses the upper extremity instead of the wrist. You should always take your blood pressure when at a seated position for 5 minutes with your arm at the level of your heart. Today at the bedside we did a limited ultrasound and found a live fetus that was actively moving and you had an estimated heart rate in the 140s. Please continue to follow closely with your OB providers. Should you develop vaginal bleeding, Bleeding that is menstrual-like or you saturate a pad or tampon every hour for 3 or more hours, have sudden severe chest pain or shortness of air you should return immediately to the emergency department.
[2022-12-23 12:02] VITALS: BP 121/68
== END 2022-12-23 12:02 | disposition home or self-care (01) ==
LOC: ED 09:46
DX: R82.71 Bacteriuria (principal); K59.00 Constipation, unspecified; O99.891 Other specified diseases and conditions complicating pregnancy; O99.612 Diseases of the digestive system complicating pregnancy, second trimester; Z3A.12 12 weeks gestation of pregnancy
CPT/HCPCS: 81001; 81003; 81025; 87086; 99283

== ENCOUNTER 2023-01-13 16:54 | Outpatient (CLI) | payer OTHER ==
[2023-01-13 17:33] LABS: BILIRUBIN,URINE NEGATIVE (NEGATIVE); GLUCOSE, URINE (UA) NEGATIVE (NEGATIVE); KETONES,URINE (UA) NEGATIVE (NEGATIVE); LEUKOCYTE ESTERASE, URINE NEGATIVE (NEGATIVE); NITRITE,URINE NEGATIVE (NEGATIVE); OCCULT BLOOD,URINE NEGATIVE (NEGATIVE); PROTEIN,URINE NEGATIVE (NEGATIVE); UROBILINOGEN,URINE 0.2 (NORMAL) E.U./dL (NORMAL)
[2023-01-13 17:34] LABS: CLARITY,URINE CLEAR (CLEAR)
[2023-01-13 17:40] LABS: BACTERIA,URINE Rare /HPF (None Seen); RBC,URINE 0-5 /HPF (0-5); SQUAMOUS EPITHELIAL CELL,UR RARE Squamous (<= Few); WBC,URINE 0-3 /HPF (0-5)
== END 2023-01-13 16:55 | disposition home or self-care (01) ==
LOC: LAB 16:54
PROVIDERS: ATTEND Nurse Practitioner
DX: R30.0 Dysuria (principal)
CPT/HCPCS: 81001; 87086

== ENCOUNTER 2023-02-12 07:08 | Outpatient (CLI) | payer OTHER ==
--- NOTE | 2023-02-12 12:28 | Ultrasound Report ---
PROCEDURE: OB Detailed Eval INDICATIONS: SUPERVISION OF NORMAL OUTSIDE/PRIOR DATING DATA: Last menstrual period (LMP): 09/27/2022. LMP-based estimated date of delivery (CARLA): 07/04/2023. First dating scan (date and location): 11/19/2022. Estimated date of delivery (CARLA) from first dating scan: 07/05/2023. The below data below was generated using the ultrasound CARLA of 07/05/2023 TECHNIQUE: Real-time scanning was performed of the fetus, with image documentation and biometric measurements. Endovaginal scanning: Not performed COMPARISON: 11/19/2022 FINDINGS: General: A single living intrauterine gestation is present. Presentation: Cephalic Placenta: Placental position is anterior to the maternal right, without previa. Amniotic fluid index: 10.7 cm, largest pocket is 3.1 cm . heart rate: 164 beats per minute. Maternal cervical canal: Closed and 5.1 cm long; normal length is 2.5 cm or more. biometrics: Biparietal diameter: 4.4 cm, 19 weeks, 3 days Head circumference: 16.2 cm, 19 weeks, 0 days Abdominal circumference: 13.3 cm, 18 weeks, 6 days Femur length: 3.1 cm, 19 weeks, 4 days Estimated gestational age from initial scan: 19 weeks, 4 days. Composite gestational age from present scan: 19 weeks, 2 days Estimated weight and percentile: 278 g, 25th percentile Measurement variability in biometric dating: +/- 10 days from 12-20 weeks gestation, +/- 2 weeks from 20-30 weeks gestation, +/- 3 weeks at 30 weeks gestation or later. Anatomic survey: Neuro: Ventricles are normal at less than 10 mm. Cisterna magna is normal at 3-11 mm. Cerebellum i s normal in size and morphology. Nuchal skin fold: Normal at less than 6 mm between 14 and 20 weeks gestational age. Face: Nose and lips, facial profile are normal. Spine: No evidence for spina bifida. Heart: 4-chambered heart is present, with normal ventricular outflow tracts. Diaphragm: Diaphragm is intact. Stomach: Left-sided stomach is present. Kidneys: No hydronephrosis. Normal is less than 5 mm in 2nd trimester, less than 7 mm in 3rd trimester. Cord: 3 vessel cord has orthotopic insertion. Bladder: Normal in size. Extremities: All 4 extremities are visualized. IMPRESSION: 1. Single living intrauterine with appropriate and symmetric growth since the prior study. 2. Normal anatomy. 3. Normal amniotic fluid volume. Reviewed by: Nilsa Morgan MD on 02/12/2023 12:27 PM PDT Approved by: Nilsa Morgan MD on 02/12/2023 12:27 PM PDT Station ID: [id number]
== END 2023-02-12 07:09 | disposition home or self-care (01) ==
LOC: DI 07:08
PROVIDERS: ATTEND Nurse Practitioner
DX: Z34.92 Encounter for supervision of normal pregnancy, unspecified, second trimester (principal)

== ENCOUNTER 2023-02-15 21:48 | Emergency (ER) | payer OTHER ==
--- OUTSIDE RECORDS SUMMARY | 2023-02-15 22:05 | EXTERNAL MEDICAL SUMMARY RPT | Continuity of Care Document ---
:2000 Author Organization [facility] Address [address] [place] [address] Phone Care Team Providers Name Role Phone Unavailable Unavailable Unavailable Natalee Alexander Unavailable Unavailable Ishan Oquendo, Alexx Unavailable Unavailable Tao Campbell Md Unavailable Unavailable Caymelania Chand, Luz Unavailable Unavailable Kelsey Venegas Enp, Ally Unavailable Unavailable Gonzalo Oquendo, Drew Unavailable Unavailable Rod Conde, Luz Unavailable Unavailable Obdulia Sotelo, Elayne Unavailable Unavailable Allergies No information. Encounters No information. Functional Status No information. Immunizations No information. Medications date description facility 2022-11-19 00:00 amoxicillin All 2022-11-19 00:00 amoxicillin All 2022-11-19 00:00 amoxicillin All 2022-11-19 00:00 amoxicillin All 2022-11-19 00:00 amoxicillin All 2022-11-19 00:00 amoxicillin All 2023-01-28 00:00 famotidine All 2023-01-28 00:00 famotidine All 2022-11-17 00:00 ondansetron All 2022-11-17 00:00 ondansetron All 2022-11-17 00:00 ondansetron All 2022-11-17 00:00 ondansetron All 2022-11-17 00:00 ondansetron All 2022-11-17 00:00 ondansetron All 2022-11-17 00:00 ondansetron All 2022-11-17 00:00 ondansetron All 2022-12-05 00:00 promethazine All 2022-12-05 00:00 promethazine All 2022-12-05 00:00 promethazine All 2022-12-05 00:00 promethazine All 2022-11-19 00:00 amoxicillin All 2022-11-19 00:00 amoxicillin All 2022-11-19 00:00 amoxicillin All 2022-11-19 00:00 amoxicillin All 2022-11-19 00:00 amoxicillin All 2022-11-19 00:00 amoxicillin All 2022-12-04 00:00 ONDANSETRON All 2022-12-04 00:00 ONDANSETRON All 2022-12-04 00:00 ONDANSETRON All 2022-12-04 00:00 [...] monohyd/m-cryst All 2022-11-21 00:00 nitrofurantoin monohyd/m-cryst All 2023-01-13 00:00 metoclopramide hcl All 2023-01-13 00:00 metoclopramide hcl All 2022-12-04 00:00 ondansetron hcl All 2022-12-04 00:00 ondansetron hcl All 2022-12-04 00:00 ondansetron hcl All 2022-12-04 00:00 ondansetron hcl All 2023-01-13 00:00 metoclopramide hcl All 2023-01-13 00:00 metoclopramide hcl All 2023-01-13 00:00 magnesium glycinate All 2023-01-13 00:00 magnesium glycinate All 2023-01-28 00:00 famotidine All 2023-01-28 00:00 famotidine All 2023-01-28 00:00 famotidine All 2023-01-28 00:00 famotidine All 2022-12-04 00:00 ondansetron hcl All 2022-12-04 00:00 ondansetron hcl All 2022-12-04 00:00 ondansetron hcl All 2022-12-04 00:00 ondansetron hcl All 2022-11-19 00:00 amoxicillin All 2022-11-19 00:00 amoxicillin All 2022-11-19 00:00 amoxicillin All 2022-11-19 00:00 amoxicillin All 2022-11-19 00:00 amoxicillin All 2022-11-19 00:00 amoxicillin All 2023-01-13 00:00 magnesium glycinate All 2023-01-13 00:00 magnesium glycinate All 2022-12-05 00:00 promethazine All 2022-12-05 00:00 promethazine All 2022-12-05 00:00 promethazine All 2022-12-05 00:00 promethazine All 2022-11-19 00:00 amoxicillin All 2022-11-19 00:00 amoxicillin All 2022-11-19 00:00 amoxicillin All 2022-11-19 00:00 amoxicillin All 2022-11-19 00:00 amoxicillin All 2022-11-19 00:00 amoxicillin All 2023-01-28 00:00 famotidine All 2023-01-28 00:00 famotidine All 2022-11-17 00:00 ondansetron All 2022-11-17 00:00 ondansetron All 2022-11-17 00:00 ondansetron All 2022-11-17 00:00 ondansetron All 2022-11-17 00:00 ondansetron All 2022-11-17 00:00 ondansetron All 2022-11-17 00:00 ondansetron All 2022-11-17 00:00 ondansetron All 2022-12-04 00:00 ondansetron hcl All 2022-12-04 00:00 ondansetron hcl All 2022-12-04 00:00 ondansetron hcl All 2022-12-04 00:00 ondansetron hcl All 2023-01-13 00:00 metoclopramide hcl All 2023-01-13 00:00 metoclopramide hcl All 2022-11-21 00:00 nitrofurantoin monohyd/m-cryst All 2022-11-21 00:00 nitrofurantoin monohyd/m-cryst All 2022-11-21 00:00 nitrofurantoin monohyd/m-cryst All 2022-11-21 00:00 nitrofurantoin monohyd/m-cryst All 2022-11-21 00:00 nitrofurantoin monohyd/m-cryst All 2022-11-21 00:00 nitrofurantoin monohyd/m-cryst All 2022-11-21 00:00 nitrofurantoin monohyd/m-cryst All 2022-11-21 00:00 nitrofurantoin monohyd/m-cryst All 2022-12-04 00:00 ondansetron hcl All 2022-12-04 00:00 ondansetron hcl All 2022-12-04 00:00 ondansetron hcl All 2022-12-04 00:00 ondansetron hcl All 2023-01-13 00:00 metoclopramide hcl All 2023-01-13 00:00 metoclopramide hcl All 2022-11-17 00:00 ondansetron All 2022-11-17 00:00 ondansetron All 2022-11-17 00:00 ondansetron All 2022-11-17 00:00 ondansetron All 2022-11-17 00:00 ondansetron All 2022-11-17 00:00 ondansetron All 2022-11-17 00:00 ondansetron All 2022-11-17 00:00 ondansetron All 2022-12-05 00:00 promethazine All 2022-12-05 00:00 promethazine All 2022-12-05 00:00 promethazine All 2022-12-05 00:00 promethazine All 2023-01-13 00:00 magnesium glycinate All 2023-01-13 00:00 magnesium glycinate All 2022-12-05 00:00 promethazine All 2022-12-05 00:00 promethazine All 2022-12-05 00:00 promethazine All 2022-12-05 00:00 promethazine All Problems date description facility 2022-11-17 00:00 Nausea alone All 2022-11-17 00:00 [...] 00:00 Venereal disease screening All 2022-12-05 00:00 Venereal disease screening All 2022-12-05 00:00 Venereal disease screening All 2022-12-05 00:00 Venereal disease screening All 2022-12-05 00:00 screening All 2022-12-05 00:00 screening All 2022-12-05 00:00 screening All 2022-12-05 00:00 screening All 2022-12-05 00:00 Anemia All 2022-12-05 00:00 Anemia All 2022-12-05 00:00 Anemia All 2022-12-05 00:00 Anemia All 2022-12-05 00:00 Anemia, unspecified All 2022-12-05 00:00 Anemia, unspecified All 2022-12-05 00:00 Anemia, unspecified All 2022-12-05 00:00 Anemia, unspecified All 2022-12-05 00:00 Encounter for other specified screening of All mother 2022-12-05 00:00 Encounter for other specified screening of All mother 2022-12-05 00:00 Encounter for other specified screening of All mother 2022-12-05 00:00 Encounter for other specified screening of All mother 2022-12-05 00:00 Screening examination for venereal dise ase All 2022-12-05 00:00 Screening examination for venereal dise ase All 2022-12-05 00:00 Screening examination for venereal dise ase All 2022-12-05 00:00 Screening examination for venereal dise ase All 2022-12-05 00:00 Encounter for screening for infections w ith a All predominantly sexual mode of transmissio n 2022-12-05 00:00 Encounter for screening for infections w ith a All predominantly sexual mode of transmissio n 2022-12-05 00:00 Encounter for screening for infections w ith a All predominantly sexual mode of transmissio n 2022-12-05 00:00 Encounter for screening for infections w ith a All predominantly sexual mode of transmissio n 2022-12-05 00:00 Encounter for other specified screening All 2022-12-05 00:00 Encounter for other specified screening All 2022-12-05 00:00 Encounter for other specified screening All 2022-12-05 00:00 Encounter for other specified screening All 2023-01-02 00:00 Gestation period, 13 weeks All 2023-01-02 00:00 Gestation period, 13 weeks All 2023-01-02 00:00 Gestation period, 13 weeks All 2023-01-02 00:00 Encounter for unspecified scr eening of All mother 2023-01-02 00:00 Encounter for unspecified scr eening of All mother 2023-01-02 00:00 Encounter for unspecified scr eening of All mother 2023-01-02 00:00 13 weeks gestation of All 2023-01-02 00:00 13 weeks gestation of All 2023-01-02 00:00 13 weeks gestation of All 2023-01-13 00:00 Backache All 2023-01-13 00:00 Backache All 2023-01-13 00:00 Female genital organ symptoms All 2023-01-13 00:00 Female genital organ symptoms All 2023-01-13 00:00 Unspecified symptom associated with fem chery genital All organs 2023-01-13 00:00 Unspecified symptom associated with fem chery genital All organs 2023-01-13 00:00 Backache, unspecified All 2023-01-13 00:00 Backache, unspecified All 2023-01-13 00:00 Headache All 2023-01-13 00:00 Headache All 2023-01-13 00:00 Chronic mixed headache syndrome All 2023-01-13 00:00 Chronic mixed headache syndrome All 2023-01-13 00:00 Other headache syndrome All 2023-01-13 00:00 Other headache syndrome All 2023-01-13 00:00 Dorsalgia, unspecified All 2023-01-13 00:00 Dorsalgia, unspecified All 2023-01-13 00:00 Pelvic and perineal pain All 2023-01-13 00:00 Pelvic and perineal pain All 2023-01-13 00:00 Dysuria All 2023-01-13 00:00 Dysuria All 2023-01-28 00:00 Acute constipation All 2023-01-28 00:00 Acute constipation All 2023-01-28 00:00 Flank pain All 2023-01-28 00:00 Flank pain All 2023-01-28 00:00 Constipation, unspecified All 2023-01-28 00:00 Constipation, unspecified All 2023-01-28 00:00 Unspecified abdominal pain All 2023-01-28 00:00 Unspecified abdominal pain All Procedures date description facility 2022-11-17 00:00 [...] All 2022-12-05 00:00 Visit Code Hold All 2022-12-05 00:00 Visit Code Hold All 2022-12-05 00:00 Visit Code Hold All 2022-12-05 00:00 Visit Code Hold All 2023-01-28 00:00 Visit Code Hold All 2023-01-28 00:00 Visit Code Hold All 2022-11-19 00:00 POC URINALYSIS DIP All 2022-11-19 00:00 POC URINALYSIS DIP All 2022-11-19 00:00 POC URINALYSIS DIP All 2022-11-19 00:00 POC URINALYSIS DIP All 2022-11-19 00:00 POC URINALYSIS DIP All 2022-11-19 00:00 POC URINALYSIS DIP All 2022-12-05 00:00 Ferritin All 2022-12-05 00:00 Ferritin All 2022-12-05 00:00 Ferritin All 2022-12-05 00:00 Ferritin All 2022-11-19 00:00 [...] 2022-11-19 00:00 CBC W/Diff/Plt All 2022-11-19 00:00 Urine C&S All 2022-11-19 00:00 Urine C&S All 2022-11-19 00:00 Urine C&S All 2022-11-19 00:00 Urine C&S All 2022-11-19 00:00 Urine C&S All 2022-11-19 00:00 Urine C&S All 2022-12-05 00:00 CHLAM, NEISSERIA, TRICH DNA All 2022-12-05 00:00 CHLAM, NEISSERIA, TRICH DNA All 2022-12-05 00:00 CHLAM, NEISSERIA, TRICH DNA All 2022-12-05 00:00 CHLAM, NEISSERIA, TRICH DNA All 2022-12-04 00:00 Med Administration (PO-SL-IN-VA) All 2022-12-04 00:00 Med Administration (PO-SL-IN-VA) All 2022-12-04 00:00 Med Administration (PO-SL-IN-VA) All 2022-12-04 00:00 Med Administration (PO-SL-IN-VA) All 2022-12-04 00:00 Ondansetron 4 mg All [...] value) (units unknown ) (unknown) Result panel 861 (unknown) (no date) (unknown) All (no value) (units unknown ) (unknown) Result panel 862 (unknown) (no date) (unknown) All (no value) (units unknown ) (unknown) Result panel 863 (unknown) (no date) (unknown) All (no value) (units unknown ) (unknown) Result panel 864 (unknown) (no date) (unknown) All (no value) (units unknown ) (unknown) Result panel 865 (unknown) (no date) (unknown) All (no value) (units unknown ) (unknown) Result panel 866 (unknown) (no date) (unknown) All (no value) (units unknown ) (unknown) Result panel 867 (unknown) (no date) (unknown) All (no value) (units unknown ) (unknown) Result panel 868 (unknown) (no date) (unknown) All (no value) (units unknown ) (unknown) Result panel 869 (unknown) (no date) (unknown) All (no value) (units unknown ) (unknown) Result panel 870 (unknown) (no date) (unknown) All (no value) (units unknown ) (unknown) Result panel 871 (unknown) (no date) (unknown) All (no value) (units unknown ) (unknown) Result panel 872 (unknown) (no date) (unknown) All (no value) (units unknown ) (unknown) Result panel 873 (unknown) (no date) (unknown) All (no value) (units unknown ) (unknown) Result panel 874 (unknown) (no date) (unknown) All (no value) (units unknown ) (unknown) Result panel 875 (unknown) (no date) (unknown) All (no value) (units unknown ) (unknown) Result panel 876 (unknown) (no date) (unknown) All (no value) (units unknown ) (unknown) Result panel 877 (unknown) (no date) (unknown) All (no value) (units unknown ) (unknown) Result panel 878 (unknown) (no date) (unknown) All (no value) (units unknown ) (unknown) Result panel 879 (unknown) (no date) (unknown) All (no value) (units unknown ) (unknown) Result panel 880 (unknown) (no date) (unknown) All (no value) (units unknown ) (unknown) Result panel 881 (unknown) (no date) (unknown) All (no value) (units unknown ) (unknown) Result panel 882 (unknown) (no date) (unknown) All (no value) (units unknown ) (unknown) Result panel 883 (unknown) (no date) (unknown) All (no value) (units unknown ) (unknown) Result panel 884 (unknown) (no date) (unknown) All (no value) (units unknown ) (unknown) Result panel 885 (unknown) (no date) (unknown) All (no value) (units unknown ) (unknown) Result panel 886 (unknown) (no date) (unknown) All (no value) (units unknown ) (unknown) Result panel 887 (unknown) (no date) (unknown) All (no value) (units unknown ) (unknown) Result panel 888 (unknown) (no date) (unknown) All (no value) (units unknown ) (unknown) Result panel 889 (unknown) (no date) (unknown) All (no value) (units unknown ) (unknown) Result panel 890 (unknown) (no date) (unknown) All (no value) (units unknown ) (unknown) Result panel 891 (unknown) (no date) (unknown) All (no value) (units unknown ) (unknown) Result panel 892 (unknown) (no date) (unknown) All (no value) (units unknown ) (unknown) Result panel 893 (unknown) (no date) (unknown) All (no value) (units unknown ) (unknown) Result panel 894 (unknown) (no date) (unknown) All (no value) (units unknown ) (unknown) Result panel 895 (unknown) (no date) (unknown) All (no value) (units unknown ) (unknown) Result panel 896 (unknown) (no date) (unknown) All (no value) (units unknown ) (unknown) Result panel 897 (unknown) (no date) (unknown) All (no value) (units unknown ) (unknown) Result panel 898 (unknown) (no date) (unknown) All (no value) (units unknown ) (unknown) Result panel 899 (unknown) (no date) (unknown) All (no value) (units unknown ) (unknown) Result panel 900 (unknown) (no date) (unknown) All (no value) (units unknown ) (unknown) Result panel 901 (unknown) (no date) (unknown) All (no value) (units unknown ) (unknown) Result panel 902 (unknown) (no date) (unknown) All (no value) (units unknown ) (unknown) Result panel 903 (unknown) (no date) (unknown) All (no value) (units unknown ) (unknown) Result panel 904 (unknown) (no date) (unknown) All (no value) (units unknown ) (unknown) Result panel 905 (unknown) (no date) (unknown) All (no value) (units unknown ) (unknown) Result panel 906 (unknown) (no date) (unknown) All (no value) (units unknown ) (unknown) Result panel 907 (unknown) (no date) (unknown) All (no value) (units unknown ) (unknown) Result panel 908 (unknown) (no date) (unknown) All (no value) (units unknown ) (unknown) Result panel 909 (unknown) (no date) (unknown) All (no value) (units unknown ) (unknown) Result panel 910 (unknown) (no date) (unknown) All (no value) (units unknown ) (unknown) Result panel 911 (unknown) (no date) (unknown) All (no value) (units unknown ) (unknown) Result panel 912 (unknown) (no date) (unknown) All (no value) (units unknown ) (unknown) Result panel 913 (unknown) (no date) (unknown) All (no value) (units unknown ) (unknown) Result panel 914 (unknown) (no date) (unknown) All (no value) (units unknown ) (unknown) Result panel 915 (unknown) (no date) (unknown) All (no value) (units unknown ) (unknown) Result panel 916 (unknown) (no date) (unknown) All (no value) (units unknown ) (unknown) Result panel 917 (unknown) (no date) (unknown) All (no value) (units unknown ) (unknown) Result panel 918 (unknown) (no date) (unknown) All (no value) (units unknown ) (unknown) Result panel 919 (unknown) (no date) (unknown) All (no value) (units unknown ) (unknown) Result panel 920 (unknown) (no date) (unknown) All (no value) (units unknown ) (unknown) Result panel 921 (unknown) (no date) (unknown) All (no value) (units unknown ) (unknown) Result panel 922 (unknown) (no date) (unknown) All (no value) (units unknown ) (unknown) Result panel 923 (unknown) (no date) (unknown) All (no value) (units unknown ) (unknown) Result panel 924 (unknown) (no date) (unknown) All (no value) (units unknown ) (unknown) Result panel 925 (unknown) (no date) (unknown) All (no value) (units unknown ) (unknown) Result panel 926 (unknown) (no date) (unknown) All (no value) (units unknown ) (unknown) Result panel 927 (unknown) (no date) (unknown) All (no value) (units unknown ) (unknown) Result panel 928 (unknown) (no date) (unknown) All (no value) (units unknown ) (unknown) Result panel 929 (unknown) (no date) (unknown) All (no value) (units unknown ) (unknown) Result panel 930 (unknown) (no date) (unknown) All (no value) (units unknown ) (unknown) Result panel 931 (unknown) (no date) (unknown) All (no value) (units unknown ) (unknown) Result panel 932 (unknown) (no date) (unknown) All (no value) (units unknown ) (unknown) Result panel 933 (unknown) (no date) (unknown) All (no value) (units unknown ) (unknown) Result panel 934 (unknown) (no date) (unknown) All (no value) (units unknown ) (unknown) Result panel 935 (unknown) (no date) (unknown) All (no value) (units unknown ) (unknown) Result panel 936 (unknown) (no date) (unknown) All (no value) (units unknown ) (unknown) Result panel 937 (unknown) (no date) (unknown) All (no value) (units unknown ) (unknown) Result panel 938 (unknown) (no date) (unknown) All (no value) (units unknown ) (unknown) Result panel 939 (unknown) (no date) (unknown) All (no value) (units unknown ) (unknown) Result panel 940 (unknown) (no date) (unknown) All (no value) (units unknown ) (unknown) Result panel 941 (unknown) (no date) (unknown) All (no value) (units unknown ) (unknown) Result panel 942 (unknown) (no date) (unknown) All (no value) (units unknown ) (unknown) Result panel 943 (unknown) (no date) (unknown) All (no value) (units unknown ) (unknown) Result panel 944 (unknown) (no date) (unknown) All (no value) (units unknown ) (unknown) Result panel 945 (unknown) (no date) (unknown) All (no value) (units unknown ) (unknown) Result panel 946 (unknown) (no date) (unknown) All (no value) (units unknown ) (unknown) Result panel 947 (unknown) (no date) (unknown) All (no value) (units unknown ) (unknown) Result panel 948 (unknown) (no date) (unknown) All (no value) (units unknown ) (unknown) Result panel 949 (unknown) (no date) (unknown) All (no value) (units unknown ) (unknown) Result panel 950 (unknown) (no date) (unknown) All (no value) (units unknown ) (unknown) Result panel 951 (unknown) (no date) (unknown) All (no value) (units unknown ) (unknown) Result panel 952 (unknown) (no date) (unknown) All (no value) (units unknown ) (unknown) Result panel 953 (unknown) (no date) (unknown) All (no value) (units unknown ) (unknown) Result panel 954 (unknown) (no date) (unknown) All (no value) (units unknown ) (unknown) Result panel 955 (unknown) (no date) (unknown) All (no value) (units unknown ) (unknown) Result panel 956 (unknown) (no date) (unknown) All (no value) (units unknown ) (unknown) Result panel 957 (unknown) (no date) (unknown) All (no value) (units unknown ) (unknown) Result panel 958 (unknown) (no date) (unknown) All (no value) (units unknown ) (unknown) Result panel 959 (unknown) (no date) (unknown) All (no value) (units unknown ) (unknown) Result panel 960 (unknown) (no date) (unknown) All (no value) (units unknown ) (unknown) Result panel 961 (unknown) (no date) (unknown) All (no value) (units unknown ) (unknown) Result panel 962 (unknown) (no date) (unknown) All (no value) (units unknown ) (unknown) Result panel 963 (unknown) (no date) (unknown) All (no value) (units unknown ) (unknown) Result panel 964 (unknown) (no date) (unknown) All (no value) (units unknown ) (unknown) Result panel 965 (unknown) (no date) (unknown) All (no value) (units unknown ) (unknown) Result panel 966 (unknown) (no date) (unknown) All (no value) (units unknown ) (unknown) Result panel 967 (unknown) (no date) (unknown) All (no value) (units unknown ) (unknown) Result panel 968 (unknown) (no date) (unknown) All (no value) (units unknown ) (unknown) Result panel 969 (unknown) (no date) (unknown) All (no value) (units unknown ) (unknown) Result panel 970 (unknown) (no date) (unknown) All (no value) (units unknown ) (unknown) Result panel 971 (unknown) (no date) (unknown) All (no value) (units unknown ) (unknown) Result panel 972 (unknown) (no date) (unknown) All (no value) (units unknown ) (unknown) Result panel 973 (unknown) (no date) (unknown) All (no value) (units unknown ) (unknown) Result panel 974 (unknown) (no date) (unknown) All (no value) (units unknown ) (unknown) Result panel 975 (unknown) (no date) (unknown) All (no value) (units unknown ) (unknown) Result panel 976 (unknown) (no date) (unknown) All (no value) (units unknown ) (unknown) Result panel 977 (unknown) (no date) (unknown) All (no value) (units unknown ) (unknown) Result panel 978 (unknown) (no date) (unknown) All (no value) (units unknown ) (unknown) Result panel 979 (unknown) (no date) (unknown) All (no value) (units unknown ) (unknown) Result panel 980 (unknown) (no date) (unknown) All (no value) (units unknown ) (unknown) Result panel 981 (unknown) (no date) (unknown) All (no value) (units unknown ) (unknown) Result panel 982 (unknown) (no date) (unknown) All (no value) (units unknown ) (unknown) Result panel 983 (unknown) (no date) (unknown) All (no value) (units unknown ) (unknown) Result panel 984 (unknown) (no date) (unknown) All (no value) (units unknown ) (unknown) Result panel 985 (unknown) (no date) (unknown) All (no value) (units unknown ) (unknown) Result panel 986 (unknown) (no date) (unknown) All (no value) (units unknown ) (unknown) Result panel 987 (unknown) (no date) (unknown) All (no value) (units unknown ) (unknown) Result panel 988 (unknown) (no date) (unknown) All (no value) (units unknown ) (unknown) Result panel 989 (unknown) (no date) (unknown) All (no value) (units unknown ) (unknown) Result panel 990 (unknown) (no date) (unknown) All (no value) (units unknown ) (unknown) Result panel 991 (unknown) (no date) (unknown) All (no value) (units unknown ) (unknown) Result panel 992 (unknown) (no date) (unknown) All (no value) (units unknown ) (unknown) Result panel 993 (unknown) (no date) (unknown) All (no value) (units unknown ) (unknown) Result panel 994 (unknown) (no date) (unknown) All (no value) (units unknown ) (unknown) Result panel 995 (unknown) (no date) (unknown) All (no value) (units unknown ) (unknown) Result panel 996 (unknown) (no date) (unknown) All (no value) (units unknown ) (unknown) Result panel 997 (unknown) (no date) (unknown) All (no value) (units unknown ) (unknown) Result panel 998 (unknown) (no date) (unknown) All (no value) (units unknown ) (unknown) Result panel 999 (unknown) (no date) (unknown) All (no value) (units unknown ) (unknown) Result panel 1000 (unknown) (no date) (unknown) All (no value) (units unknown ) (unknown) Result panel 1001 (unknown) (no date) (unknown) All (no value) (units unknown ) (unknown) Result panel 1002 (unknown) (no date) (unknown) All (no value) (units unknown ) (unknown) Result panel 1003 (unknown) (no date) (unknown) All (no value) (units unknown ) (unknown) Result panel 1004 (unknown) (no date) (unknown) All (no value) (units unknown ) (unknown) Result panel 1005 (unknown) (no date) (unknown) All (no value) (units unknown ) (unknown) Result panel 1006 (unknown) (no date) (unknown) All (no value) (units unknown ) (unknown) Result panel 1007 (unknown) (no date) (unknown) All (no value) (units unknown ) (unknown) Result panel 1008 (unknown) (no date) (unknown) All (no value) (units unknown ) (unknown) Result panel 1009 (unknown) (no date) (unknown) All (no value) (units unknown ) (unknown) Result panel 1010 (unknown) (no date) (unknown) All (no value) (units unknown ) (unknown) Result panel 1011 (unknown) (no date) (unknown) All (no value) (units unknown ) (unknown) Result panel 1012 (unknown) (no date) (unknown) All (no value) (units unknown ) (unknown) Result panel 1013 (unknown) (no date) (unknown) All (no value) (units unknown ) (unknown) Result panel 1014 (unknown) (no date) (unknown) All (no value) (units unknown ) (unknown) Result panel 1015 (unknown) (no date) (unknown) All (no value) (units unknown ) (unknown) Result panel 1016 (unknown) (no date) (unknown) All (no value) (units unknown ) (unknown) Result panel 1017 (unknown) (no date) (unknown) All (no value) (units unknown ) (unknown) Result panel 1018 (unknown) (no date) (unknown) All (no value) (units unknown ) (unknown) Result panel 1019 (unknown) (no date) (unknown) All (no value) (units unknown ) (unknown) Result panel 1020 (unknown) (no date) (unknown) All (no value) (units unknown ) (unknown) Result panel 1021 (unknown) (no date) (unknown) All (no value) (units unknown ) (unknown) Result panel 1022 (unknown) (no date) (unknown) All (no value) (units unknown ) (unknown) Result panel 1023 (unknown) (no date) (unknown) All (no value) (units unknown ) (unknown) Result panel 1024 (unknown) (no date) (unknown) All (no value) (units unknown ) (unknown) Result panel 1025 (unknown) (no date) (unknown) All (no value) (units unknown ) (unknown) Result panel 1026 (unknown) (no date) (unknown) All (no value) (units unknown ) (unknown) Result panel 1027 (unknown) (no date) (unknown) All (no value) (units unknown ) (unknown) Result panel 1028 (unknown) (no date) (unknown) All (no value) (units unknown ) (unknown) Result panel 1029 (unknown) (no date) (unknown) All (no value) (units unknown ) (unknown) Result panel 1030 (unknown) (no date) (unknown) All (no value) (units unknown ) (unknown) Result panel 1031 (unknown) (no date) (unknown) All (no value) (units unknown ) (unknown) Result panel 1032 (unknown) (no date) (unknown) All (no value) (units unknown ) (unknown) Result panel 1033 (unknown) (no date) (unknown) All (no value) (units unknown ) (unknown) Result panel 1034 (unknown) (no date) (unknown) All (no value) (units unknown ) (unknown) Result panel 1035 (unknown) (no date) (unknown) All (no value) (units unknown ) (unknown) Result panel 1036 (unknown) (no date) (unknown) All (no value) (units unknown ) (unknown) Result panel 1037 (unknown) (no date) (unknown) All (no value) (units unknown ) (unknown) Result panel 1038 (unknown) (no date) (unknown) All (no value) (units unknown ) (unknown) Result panel 1039 (unknown) (no date) (unknown) All (no value) (units unknown ) (unknown) Result panel 1040 (unknown) (no date) (unknown) All (no value) (units unknown ) (unknown) Result panel 1041 (unknown) (no date) (unknown) All (no value) (units unknown ) (unknown) Result panel 1042 (unknown) (no date) (unknown) All (no value) (units unknown ) (unknown) Result panel 1043 (unknown) (no date) (unknown) All (no value) (units unknown ) (unknown) Result panel 1044 (unknown) (no date) (unknown) All (no value) (units unknown ) (unknown) Result panel 1045 (unknown) (no date) (unknown) All (no value) (units unknown ) (unknown) Result panel 1046 (unknown) (no date) (unknown) All (no value) (units unknown ) (unknown) Result panel 1047 (unknown) (no date) (unknown) All (no value) (units unknown ) (unknown) Result panel 1048 (unknown) (no date) (unknown) All (no value) (units unknown ) (unknown) Result panel 1049 (unknown) (no date) (unknown) All (no value) (units unknown ) (unknown) Result panel 1050 (unknown) (no date) (unknown) All (no value) (units unknown ) (unknown) Result panel 1051 (unknown) (no date) (unknown) All (no value) (units unknown ) (unknown) Result panel 1052 (unknown) (no date) (unknown) All (no value) (units unknown ) (unknown) Result panel 1053 (unknown) (no date) (unknown) All (no value) (units unknown ) (unknown) Result panel 1054 (unknown) (no date) (unknown) All (no value) (units unknown ) (unknown) Result panel 1055 (unknown) (no date) (unknown) All (no value) (units unknown ) (unknown) Result panel 1056 (unknown) (no date) (unknown) All (no value) (units unknown ) (unknown) Result panel 1057 (unknown) (no date) (unknown) All (no value) (units unknown ) (unknown) Result panel 1058 (unknown) (no date) (unknown) All (no value) (units unknown ) (unknown) Result panel 1059 (unknown) (no date) (unknown) All (no value) (units unknown ) (unknown) Result panel 1060 (unknown) (no date) (unknown) All (no value) (units unknown ) (unknown) Result panel 1061 (unknown) (no date) (unknown) All (no value) (units unknown ) (unknown) Result panel 1062 (unknown) (no date) (unknown) All (no value) (units unknown ) (unknown) Result panel 1063 (unknown) (no date) (unknown) All (no value) (units unknown ) (unknown) Result panel 1064 (unknown) (no date) (unknown) All (no value) (units unknown ) (unknown) Result panel 1065 (unknown) (no date) (unknown) All (no value) (units unknown ) (unknown) Result panel 1066 (unknown) (no date) (unknown) All (no value) (units unknown ) (unknown) Result panel 1067 (unknown) (no date) (unknown) All (no value) (units unknown ) (unknown) Result panel 1068 (unknown) (no date) (unknown) All (no value) (units unknown ) (unknown) Result panel 1069 (unknown) (no date) (unknown) All (no value) (units unknown ) (unknown) Result panel 1070 (unknown) (no date) (unknown) All (no value) (units unknown ) (unknown) Result panel 1071 (unknown) (no date) (unknown) All (no value) (units unknown ) (unknown) Result panel 1072 (unknown) (no date) (unknown) All (no value) (units unknown ) (unknown) Result panel 1073 (unknown) (no date) (unknown) All (no value) (units unknown ) (unknown) Result panel 1074 (unknown) (no date) (unknown) All (no value) (units unknown ) (unknown) Result panel 1075 (unknown) (no date) (unknown) All (no value) (units unknown ) (unknown) Result panel 1076 (unknown) (no date) (unknown) All (no value) (units unknown ) (unknown) Result panel 1077 (unknown) (no date) (unknown) All (no value) (units unknown ) (unknown) Result panel 1078 (unknown) (no date) (unknown) All (no value) (units unknown ) (unknown) Result panel 1079 (unknown) (no date) (unknown) All (no value) (units unknown ) (unknown) Result panel 1080 (unknown) (no date) (unknown) All (no value) (units unknown ) (unknown) Result panel 1081 (unknown) (no date) (unknown) All (no value) (units unknown ) (unknown) Result panel 1082 (unknown) (no date) (unknown) All (no value) (units unknown ) (unknown) Result panel 1083 (unknown) (no date) (unknown) All (no value) (units unknown ) (unknown) Result panel 1084 (unknown) (no date) (unknown) All (no value) (units unknown ) (unknown) Result panel 1085 (unknown) (no date) (unknown) All (no value) (units unknown ) (unknown) Result panel 1086 (unknown) (no date) (unknown) All (no value) (units unknown ) (unknown) Result panel 1087 (unknown) (no date) (unknown) All (no value) (units unknown ) (unknown) Result panel 1088 (unknown) (no date) (unknown) All (no value) (units unknown ) (unknown) Result panel 1089 (unknown) (no date) (unknown) All (no value) (units unknown ) (unknown) Result panel 1090 (unknown) (no date) (unknown) All (no value) (units unknown ) (unknown) Result panel 1091 (unknown) (no date) (unknown) All (no value) (units unknown ) (unknown) Result panel 1092 (unknown) (no date) (unknown) All (no value) (units unknown ) (unknown) Result panel 1093 (unknown) (no date) (unknown) All (no value) (units unknown ) (unknown) Result panel 1094 (unknown) (no date) (unknown) All (no value) (units unknown ) (unknown) Result panel 1095 (unknown) (no date) (unknown) All (no value) (units unknown ) (unknown) Result panel 1096 (unknown) (no date) (unknown) All (no value) (units unknown ) (unknown) Result panel 1097 (unknown) (no date) (unknown) All (no value) (units unknown ) (unknown) Result panel 1098 (unknown) (no date) (unknown) All (no value) (units unknown ) (unknown) Result panel 1099 (unknown) (no date) (unknown) All (no value) (units unknown ) (unknown) Result panel 1100 (unknown) (no date) (unknown) All (no value) (units unknown ) (unknown) Result panel 1101 (unknown) (no date) (unknown) All (no value) (units unknown ) (unknown) Result panel 1102 (unknown) (no date) (unknown) All (no value) (units unknown ) (unknown) Result panel 1103 (unknown) (no date) (unknown) All (no value) (units unknown ) (unknown) Result panel 1104 (unknown) (no date) (unknown) All (no value) (units unknown ) (unknown) Result panel 1105 (unknown) (no date) (unknown) All (no value) (units unknown ) (unknown) Result panel 1106 (unknown) (no date) (unknown) All (no value) (units unknown ) (unknown) Result panel 1107 (unknown) (no date) (unknown) All (no value) (units unknown ) (unknown) Result panel 1108 (unknown) (no date) (unknown) All (no value) (units unknown ) (unknown) Result panel 1109 (unknown) (no date) (unknown) All (no value) (units unknown ) (unknown) Result panel 1110 (unknown) (no date) (unknown) All (no value) (units unknown ) (unknown) Result panel 1111 (unknown) (no date) (unknown) All (no value) (units unknown ) (unknown) Result panel 1112 (unknown) (no date) (unknown) All (no value) (units unknown ) (unknown) Result panel 1113 (unknown) (no date) (unknown) All (no value) (units unknown ) (unknown) Result panel 1114 (unknown) (no date) (unknown) All (no value) (units unknown ) (unknown) Result panel 1115 (unknown) (no date) (unknown) All (no value) (units unknown ) (unknown) Result panel 1116 (unknown) (no date) (unknown) All (no value) (units unknown ) (unknown) Result panel 1117 (unknown) (no date) (unknown) All (no value) (units unknown ) (unknown) Result panel 1118 (unknown) (no date) (unknown) All (no value) (units unknown ) (unknown) Result panel 1119 (unknown) (no date) (unknown) All (no value) (units unknown ) (unknown) Result panel 1120 (unknown) (no date) (unknown) All (no value) (units unknown ) (unknown) Result panel 1121 (unknown) (no date) (unknown) All (no value) (units unknown ) (unknown) Result panel 1122 (unknown) (no date) (unknown) All (no value) (units unknown ) (unknown) Result panel 1123 (unknown) (no date) (unknown) All (no value) (units unknown ) (unknown) Result panel 1124 (unknown) (no date) (unknown) All (no value) (units unknown ) (unknown) Result panel 1125 (unknown) (no date) (unknown) All (no value) (units unknown ) (unknown) Result panel 1126 (unknown) (no date) (unknown) All (no value) (units unknown ) (unknown) Result panel 1127 (unknown) (no date) (unknown) All (no value) (units unknown ) (unknown) Result panel 1128 (unknown) (no date) (unknown) All (no value) (units unknown ) (unknown) Result panel 1129 (unknown) (no date) (unknown) All (no value) (units unknown ) (unknown) Result panel 1130 (unknown) (no date) (unknown) All (no value) (units unknown ) (unknown) Result panel 1131 (unknown) (no date) (unknown) All (no value) (units unknown ) (unknown) Result panel 1132 (unknown) (no date) (unknown) All (no value) (units unknown ) (unknown) Result panel 1133 (unknown) (no date) (unknown) All (no value) (units unknown ) (unknown) Result panel 1134 (unknown) (no date) (unknown) All (no value) (units unknown ) (unknown) Result panel 1135 (unknown) (no date) (unknown) All (no value) (units unknown ) (unknown) Result panel 1136 (unknown) (no date) (unknown) All (no value) (units unknown ) (unknown) Result panel 1137 (unknown) (no date) (unknown) All (no value) (units unknown ) (unknown) Result panel 1138 (unknown) (no date) (unknown) All (no value) (units unknown ) (unknown) Result panel 1139 (unknown) (no date) (unknown) All (no value) (units unknown ) (unknown) Result panel 1140 (unknown) (no date) (unknown) All (no value) (units unknown ) (unknown) Result panel 1141 (unknown) (no date) (unknown) All (no value) (units unknown ) (unknown) Result panel 1142 (unknown) (no date) (unknown) All (no value) (units unknown ) (unknown) Result panel 1143 (unknown) (no date) (unknown) All (no value) (units unknown ) (unknown) Result panel 1144 (unknown) (no date) (unknown) All (no value) (units unknown ) (unknown) Result panel 1145 (unknown) (no date) (unknown) All (no value) (units unknown ) (unknown) Result panel 1146 (unknown) (no date) (unknown) All (no value) (units unknown ) (unknown) Result panel 1147 (unknown) (no date) (unknown) All (no value) (units unknown ) (unknown) Result panel 1148 (unknown) (no date) (unknown) All (no value) (units unknown ) (unknown) Result panel 1149 (unknown) (no date) (unknown) All (no value) (units unknown ) (unknown) Result panel 1150 (unknown) (no date) (unknown) All (no value) (units unknown ) (unknown) Result panel 1151 (unknown) (no date) (unknown) All (no value) (units unknown ) (unknown) Result panel 1152 (unknown) (no date) (unknown) All (no value) (units unknown ) (unknown) Result panel 1153 (unknown) (no date) (unknown) All (no value) (units unknown ) (unknown) Result panel 1154 (unknown) (no date) (unknown) All (no value) (units unknown ) (unknown) Result panel 1155 (unknown) (no date) (unknown) All (no value) (units unknown ) (unknown) Result panel 1156 (unknown) (no date) (unknown) All (no value) (units unknown ) (unknown) Result panel 1157 (unknown) (no date) (unknown) All (no value) (units unknown ) (unknown) Result panel 1158 (unknown) (no date) (unknown) All (no value) (units unknown ) (unknown) Result panel 1159 (unknown) (no date) (unknown) All (no value) (units unknown ) (unknown) Result panel 1160 (unknown) (no date) (unknown) All (no value) (units unknown ) (unknown) Result panel 1161 (unknown) (no date) (unknown) All (no value) (units unknown ) (unknown) Result panel 1162 (unknown) (no date) (unknown) All (no value) (units unknown ) (unknown) Result panel 1163 (unknown) (no date) (unknown) All (no value) (units unknown ) (unknown) Result panel 1164 (unknown) (no date) (unknown) All (no value) (units unknown ) (unknown) Result panel 1165 (unknown) (no date) (unknown) All (no value) (units unknown ) (unknown) Result panel 1166 (unknown) (no date) (unknown) All (no value) (units unknown ) (unknown) Result panel 1167 (unknown) (no date) (unknown) All (no value) (units unknown ) (unknown) Result panel 1168 (unknown) (no date) (unknown) All (no value) (units unknown ) (unknown) Result panel 1169 (unknown) (no date) (unknown) All (no value) (units unknown ) (unknown) Result panel 1170 (unknown) (no date) (unknown) All (no value) (units unknown ) (unknown) Result panel 1171 (unknown) (no date) (unknown) All (no value) (units unknown ) (unknown) Result panel 1172 (unknown) (no date) (unknown) All (no value) (units unknown ) (unknown) Result panel 1173 (unknown) (no date) (unknown) All (no value) (units unknown ) (unknown) Result panel 1174 (unknown) (no date) (unknown) All (no value) (units unknown ) (unknown) Result panel 1175 (unknown) (no date) (unknown) All (no value) (units unknown ) (unknown) Result panel 1176 (unknown) (no date) (unknown) All (no value) (units unknown ) (unknown) Result panel 1177 (unknown) (no date) (unknown) All (no value) (units unknown ) (unknown) Result panel 1178 (unknown) (no date) (unknown) All (no value) (units unknown ) (unknown) Result panel 1179 (unknown) (no date) (unknown) All (no value) (units unknown ) (unknown) Result panel 1180 (unknown) (no date) (unknown) All (no value) (units unknown ) (unknown) Result panel 1181 (unknown) (no date) (unknown) All (no value) (units unknown ) (unknown) Result panel 1182 (unknown) (no date) (unknown) All (no value) (units unknown ) (unknown) Result panel 1183 (unknown) (no date) (unknown) All (no value) (units unknown ) (unknown) Result panel 1184 (unknown) (no date) (unknown) All (no value) (units unknown ) (unknown) Result panel 1185 (unknown) (no date) (unknown) All (no value) (units unknown ) (unknown) Result panel 1186 (unknown) (no date) (unknown) All (no value) (units unknown ) (unknown) Result panel 1187 (unknown) (no date) (unknown) All (no value) (units unknown ) (unknown) Result panel 1188 (unknown) (no date) (unknown) All (no value) (units unknown ) (unknown) Result panel 1189 (unknown) (no date) (unknown) All (no value) (units unknown ) (unknown) Result panel 1190 (unknown) (no date) (unknown) All (no value) (units unknown ) (unknown) Result panel 1191 (unknown) (no date) (unknown) All (no value) (units unknown ) (unknown) Result panel 1192 (unknown) (no date) (unknown) All (no value) (units unknown ) (unknown) Result panel 1193 (unknown) (no date) (unknown) All (no value) (units unknown ) (unknown) Result panel 1194 (unknown) (no date) (unknown) All (no value) (units unknown ) (unknown) Result panel 1195 (unknown) (no date) (unknown) All (no value) (units unknown ) (unknown) Result panel 1196 (unknown) (no date) (unknown) All (no value) (units unknown ) (unknown) Result panel 1197 (unknown) (no date) (unknown) All (no value) (units unknown ) (unknown) Result panel 1198 (unknown) (no date) (unknown) All (no value) (units unknown ) (unknown) Result panel 1199 (unknown) (no date) (unknown) All (no value) (units unknown ) (unknown) Result panel 1200 (unknown) (no date) (unknown) All (no value) (units unknown ) (unknown) Result panel 1201 (unknown) (no date) (unknown) All (no value) (units unknown ) (unknown) Result panel 1202 (unknown) (no date) (unknown) All (no value) (units unknown ) (unknown) Result panel 1203 (unknown) (no date) (unknown) All (no value) (units unknown ) (unknown) Result panel 1204 (unknown) (no date) (unknown) All (no value) (units unknown ) (unknown) Result panel 1205 (unknown) (no date) (unknown) All (no value) (units unknown ) (unknown) Result panel 1206 (unknown) (no date) (unknown) All (no value) (units unknown ) (unknown) Result panel 1207 (unknown) (no date) (unknown) All (no value) (units unknown ) (unknown) Result panel 1208 (unknown) (no date) (unknown) All (no value) (units unknown ) (unknown) Result panel 1209 (unknown) (no date) (unknown) All (no value) (units unknown ) (unknown) Result panel 1210 (unknown) (no date) (unknown) All (no value) (units unknown ) (unknown) Result panel 1211 (unknown) (no date) (unknown) All (no value) (units unknown ) (unknown) Result panel 1212 (unknown) (no date) (unknown) All (no value) (units unknown ) (unknown) Result panel 1213 (unknown) (no date) (unknown) All (no value) (units unknown ) (unknown) Result panel 1214 (unknown) (no date) (unknown) All (no value) (units unknown ) (unknown) Result panel 1215 (unknown) (no date) (unknown) All (no value) (units unknown ) (unknown) Result panel 1216 (unknown) (no date) (unknown) All (no value) (units unknown ) (unknown) Result panel 1217 (unknown) (no date) (unknown) All (no value) (units unknown ) (unknown) Result panel 1218 (unknown) (no date) (unknown) All (no value) (units unknown ) (unknown) Result panel 1219 (unknown) (no date) (unknown) All (no value) (units unknown ) (unknown) Result panel 1220 (unknown) (no date) (unknown) All (no value) (units unknown ) (unknown) Result panel 1221 (unknown) (no date) (unknown) All (no value) (units unknown ) (unknown) Result panel 1222 (unknown) (no date) (unknown) All (no value) (units unknown ) (unknown) Result panel 1223 (unknown) (no date) (unknown) All (no value) (units unknown ) (unknown) Result panel 1224 (unknown) (no date) (unknown) All (no value) (units unknown ) (unknown) Result panel 1225 (unknown) (no date) (unknown) All (no value) (units unknown ) (unknown) Result panel 1226 (unknown) (no date) (unknown) All (no value) (units unknown ) (unknown) Result panel 1227 (unknown) (no date) (unknown) All (no value) (units unknown ) (unknown) Result panel 1228 (unknown) (no date) (unknown) All (no value) (units unknown ) (unknown) Result panel 1229 (unknown) (no date) (unknown) All (no value) (units unknown ) (unknown) Result panel 1230 (unknown) (no date) (unknown) All (no value) (units unknown ) (unknown) Result panel 1231 (unknown) (no date) (unknown) All (no value) (units unknown ) (unknown) Result panel 1232 (unknown) (no date) (unknown) All (no value) (units unknown ) (unknown) Result panel 1233 (unknown) (no date) (unknown) All (no value) (units unknown ) (unknown) Result panel 1234 (unknown) (no date) (unknown) All (no value) (units unknown ) (unknown) Social History date description facility 2022-12-04 00:00 Never smoker All 2022-12-04 00:00 Never smoker All 2022-12-04 00:00 Never smoker All 2022-12-04 00:00 Never smoker All 2022-12-05 00:00 Never smoker All 2022-12-05 00:00 Never smoker All 2022-12-05 00:00 Never smoker All 2022-12-05 00:00 Never smoker All 2023-01-02 00:00 Never smoker All 2023-01-02 00:00 Never smoker All 2023-01-02 00:00 Never smoker All Vital Signs date measurement value units 2022-11-17 00:00 BMI 31.57 kg/m2 2022-11-17 00:00 [...] 78.02 kg 2022-12-05 00:00 weight_standard 172 lb 2023-01-02 00:00 BMI 32.12 kg/m2 2023-01-02 00:00 BP_diastolic 64 mmHg 2023-01-02 00:00 BP_systolic 108 mmHg 2023-01-02 00:00 height_metric 157.48 cm 2023-01-02 00:00 height_standard 62 in 2023-01-02 00:00 temperature_metric 35.78 C 2023-01-02 00:00 temperature_standard 96.4 F 2023-01-02 00:00 weight_metric 79.38 kg 2023-01-02 00:00 weight_standard 175 lb 2023-01-13 00:00 BMI 32.31 kg/m2 2023-01-13 00:00 BP_diastolic 68 mmHg 2023-01-13 00:00 BP_systolic 106 mmHg 2023-01-13 00:00 height_metric 157.48 cm 2023-01-13 00:00 height_standard 62 in 2023-01-13 00:00 temperature_metric 36.06 C 2023-01-13 00:00 temperature_standard 96.9 F 2023-01-13 00:00 weight_metric 79.83 kg 2023-01-13 00:00 weight_standard 176 lb 2023-01-28 00:00 BMI 32.31 kg/m2 2023-01-28 00:00 BP_diastolic 70 mmHg 2023-01-28 00:00 BP_systolic 120 mmHg 2023-01-28 00:00 heart_rate 82 /min 2023-01-28 00:00 height_metric 157.48 cm 2023-01-28 00:00 height_standard 62 in 2023-01-28 00:00 respiration_rate 18 /min 2023-01-28 00:00 temperature_metric 36.94 C 2023-01-28 00:00 temperature_standard 98.5 F 2023-01-28 00:00 weight_metric 79.83 kg 2023-01-28 00:00 weight_standard 176 lb 2023-01-30 00:00 BMI 33.11 kg/m2 2023-01-30 00:00 BP_diastolic 65 mmHg 2023-01-30 00:00 BP_systolic 103 mmHg 2023-01-30 00:00 height_metric 157.48 cm 2023-01-30 00:00 height_standard 62 in 2023-01-30 00:00 temperature_metric 36.72 C 2023-01-30 00:00 temperature_standard 98.1 F 2023-01-30 00:00 weight_metric 81.83 kg 2023-01-30 00:00 weight_standard 180.4 lb
--- NOTE | 2023-02-15 23:15 | ED Physician Documentation ---
History of Present Illness - Stated complaint Stated Complaint: GLF/20WKS OB - Chief complaint Chief Complaint: Abd Pain - History obtained from History obtained from: Patient - History of Present Illness Timing: Today Pain level max: 2 Pain level now: 1 - Additonal information Additional information: Patient is 20 weeks , primagravida. She says she has been getting regular care. At approximately 7:30 PM tonight, patient was at home and went to lie down on her couch when she lost her balance and fell onto the floor, turning in the process, resulting in her falling onto her abdomen. She notes some suprapubic and bilateral lower pelvic discomfort, although she says this does not feel any different than discomfort she has been having for many weeks and for which she has seen her WAD IMPREGNATOR, was told this was round ligament discomfort and nothing to be concerned about. Patient denies any vaginal bleeding, denies decreased movement. She does note some upper abdominal midline/epigastric cramping pain which is mild and only began after she registered as an ER patient. Patient says her blood type is B positive. Review of Systems GI: reports: Abdominal Pain (mild cramping epigastric discomfort; bilateral pelvic pain as well as suprapubic area). denies: Nausea, Vomiting : reports: Now EGA (20 weeks) Musculoskeletal: denies: Back pain PD PAST MEDICAL HISTORY - Past Medical History Cardiovascular: None Respiratory: None Neuro: Headaches Endocrine/Autoimmune: None GI: None COORDINATOR OF PLACEMENT: None : None HEENT: None Psych: None Musculoskeletal: None Derm: None - Past Surgical History Past Surgical History: No - Present Medications Home Medications: Ambulatory Orders Medication Instructions Recorded Confirmed Ondansetron HCl 4 mg PO Q8HR PRN 11/20/22 12/23/22 Vit No.130/Iron/Folic 1 tab PO DAILY 11/20/22 12/23/22 [ Tablet] cephALEXin [Keflex] 500 mg PO BID #14 cap 12/23/22 - Allergies Allergies/Adverse Reactions: Allergies Allergy/AdvReac Type Severity Reaction Status Date / Time No Known Drug Allergies Allergy Verified 02/15/23 21:50 - Social History Does the pt smoke?: No Smoking Status: Never smoker Does the pt drink ETOH?: No Does the pt have substance abuse?: No - Immunizations Immunizations are current?: Yes - POLST Patient has POLST: No PD ED PE NORMAL - Vitals Vital signs reviewed: Yes - General General: Alert and oriented X 3, No acute distress, Well developed/nourished - Abdomen Abdomen: Soft, Non tender, Non distended - Derm Derm: Normal color, Warm and dry Results - Vitals Vitals: Oxygen O2 Source Room air PD Medical Decision Making - ED course Complexity details: considered differential, d/w patient ED course: Patient is well-appearing and does not have any significant abdominal tenderness nor anterior pelvic tenderness on my exam. She does complain of some epigastric cramping pain that only began after she registered as an ER patient. She does note pain across her lower anterior pelvic area, although she notes this discomfort is not new and she has already been evaluated by her WAD IMPREGNATOR for this. At this time, there is no in-house ultrasound available, and will not be available until 6:00 AM (which is over six hours from the time of this note). I discussed this case with Dr. Bernabe (on-call WAD IMPREGNATOR for [facility]); the upshot of this discussion is that I will discharge the patient from the emergency department, but she is then to go directly over to the OB floor where he will evaluate her, likely with ultrasound as well as monitoring. Departure - Departure Disposition: 01 Home, Self Care Clinical Impression: with abdominal wall injury, antepartum Condition: Good Instructions: Preg 2nd Trimester Comments: You are being discharged from the emergency department at this time, but you are now being sent over to the WAD IMPREGNATOR section of the hospital where the WAD IMPREGNATOR will perform an ultrasound to check on the fetus and the placenta, and you will also undergo monitoring to ensure there are no other problems related to the . Discharge Date/Time: 02/15/23 23:57
[2023-02-15 23:58] VITALS: BP 110/53
== END 2023-02-15 23:57 | disposition home or self-care (01) ==
LOC: ED 21:48
DX: O9A.212 Injury, poisoning and certain other consequences of external causes complicating pregnancy, second trimester (principal); S39.91XA Unspecified injury of abdomen, initial encounter; W08.XXXA Fall from other furniture, initial encounter; Z3A.20 20 weeks gestation of pregnancy
CPT/HCPCS: 99283; 99284

== ENCOUNTER 2023-02-15 23:58 | Outpatient (CLI) | payer OTHER ==
[2023-02-16 00:23] VITALS: BP 114/59
--- NOTE | 2023-02-16 00:41 | PROVIDER PROGRESS NOTE ---
- HPI Chief Complaint: Fall Current : Vital Signs Temperature 97.7 F 02/16/23 00:05 Heart Rate 77 02/16/23 00:05 Respiratory Rate 17 02/16/23 00:05 Blood Pressure 114/59 L 02/16/23 00:05 Temperature 97.7 F 02/16/23 00:05 Heart Rate 77 02/16/23 00:05 Respiratory Rate 17 02/16/23 00:05 Blood Pressure 114/59 L 02/16/23 00:05 O2 Saturation If not protocol: Oxygen Flow, liters/minute - Plan Plan: Patient is a 22-year-old G1, P0 at 20 weeks 2 days gestation presenting to triage for fall. She said at about 07 30 she was getting up from the couch and stumbled and thinks she fell or rolled onto her belly. No significant belly pain. She does have ongoing heartburn/GERD and has been taking Tums for this. She does have epigastric discomfort that she thinks is from this. No new pain since falling. She has good movement, no leaking, no vaginal bleeding. She denies headache, right upper quadrant pain, changes in vision. Past medical history Denies Past surgical history Denies Family history Maternal grandfather: Diabetes Maternal grandmother: Diabetes Aunt: Diabetes Social history Denies tobacco, alcohol, drugs.former vaping. Physical Exam Constitutional: alert, no acute distress, well hydrated, well developed, well nourished, appropriate dress. Cardiovascular: Regular rate and rhythm. Respiratory: no respiratory distress. Abdomen: Gravid, soft nondistended, nontender, no guarding. No erythema, abrasions, or injury. Psych: affect and mood appropriate, normal interaction, good eye contact. FHT: 150 bpm Assessment and plan 22-year-old G1, P0 at 20 weeks 2 days gestation here after a fall 1. Abdominal trauma after fall -Discussed with patient that oftentimes I will watch the patient for 4 hours after a fall to see if she contracts. She is now approximately 6 hours after the fall occurred and has not felt any cramping. We will observe her and evaluate contractions. Patient is hesitant to wait the full 4 hours. We discussed that this is not unreasonable, especially as the fetus is nonviable. She does not appear to be laboring, and with a closed cervix is not likely to readily deliver. If she starts cramping or asuncion, should return. No contractions seen on monitor and patient declines feeling them. Patient discharged with labor precautions.
--- NOTE | 2023-02-16 02:44 | Labor Flowsheet ---
Labor Flowsheet Datetime Report Generated by CPN: 02/16/2023 02:44 Datetime: 02/16/2023 01:05 Pulse: 92 SpO2 (%): 99 COMMUNICATION LaborFlag: OB Triage Datetime: 02/16/2023 00:06 Stage of : OB Triage VITAL SIGNS NBP Sys/Virgie/Mean (mmHg): 114 : 59 : 71
== END 2023-02-16 02:35 | disposition home or self-care (01) ==
LOC: UNDOADMOB 23:58 → FBP 23:58 → WFO 23:58 → FBP 23:59 → WFO 02-16 02:35 → UNDODISOB 02-16 02:35 → EDSTATUS 02-18 08:23
PROVIDERS: ATTEND Obstetrics & Gynecology
DX: O9A.212 Injury, poisoning and certain other consequences of external causes complicating pregnancy, second trimester (principal); S39.91XA Unspecified injury of abdomen, initial encounter; W01.0XXA Fall on same level from slipping, tripping and stumbling without subsequent striking against object, initial encounter; O99.612 Diseases of the digestive system complicating pregnancy, second trimester; K21.9 Gastro-esophageal reflux disease without esophagitis; Z3A.20 20 weeks gestation of pregnancy
CPT/HCPCS: 99215; 99283; 99284

== ENCOUNTER 2023-02-18 11:04 | Outpatient (CLI) | payer OTHER ==
[2023-02-18 11:29] VITALS: BP 102/63
--- NOTE | 2023-02-18 12:03 | PROVIDER PROGRESS NOTE ---
- HPI Chief Complaint: Decreased movement Current : Vital Signs Temperature 98.1 F 02/18/23 11:23 Heart Rate 96 02/18/23 11:23 Respiratory Rate 16 02/18/23 11:23 Blood Pressure 102/63 02/18/23 11:23 Temperature 98.1 F 02/18/23 11:23 Heart Rate 96 02/18/23 11:23 Respiratory Rate 16 02/18/23 11:23 Blood Pressure 102/63 02/18/23 11:23 O2 Saturation If not protocol: Oxygen Flow, liters/minute - Exam Gen: NAD Abdomen: gravid, non-tender FHT: 150s by doptone bedside us: anterior placenta, breech presentation, + movement - Procedures Diagnosis/Indication for NST: Decreased movement - Plan Plan: at 20+5 with decreased movement s/p fall off couch on Thursday. wellbeing is reassuring: + heart tones
== END 2023-02-18 12:10 | disposition home or self-care (01) ==
LOC: WFO 11:04 → FBP 11:07 → WFO 12:10
PROVIDERS: ATTEND Obstetrics & Gynecology Obstetrics
DX: O36.8120 Decreased fetal movements, second trimester, not applicable or unspecified (principal); O32.1XX0 Maternal care for breech presentation, not applicable or unspecified; Z3A.20 20 weeks gestation of pregnancy
CPT/HCPCS: 99214

== ENCOUNTER 2023-02-27 08:00 | Outpatient (CLI) | payer OTHER ==
[2023-02-27 21:22] LABS: BACTERIAL VAGINOSIS DNA NEGATIVE (NEGATIVE); CANDIDA GLABRATA DNA NEGATIVE (NEGATIVE); CANDIDA GROUP DNA NEGATIVE (NEGATIVE); CANDIDA KRUSEI DNA NEGATIVE (NEGATIVE); TRICHOMONAS VAGINALIS DNA NEGATIVE (NEGATIVE)
== END 2023-02-27 23:59 | disposition home or self-care (01) ==
LOC: LAB.WC 08:00
PROVIDERS: ATTEND Nurse Practitioner
DX: N89.8 Other specified noninflammatory disorders of vagina (principal)
CPT/HCPCS: 81514

== ENCOUNTER 2023-03-05 09:39 | Emergency (ER) | payer OTHER ==
--- NOTE | 2023-03-05 11:53 | ED Physician Documentation ---
History of Present Illness - Stated complaint Stated Complaint: HELTON, DIZZINESS - Chief complaint Chief Complaint: Resp - Additonal information Additional information: 22-year-old female who is reported 22 weeks 5 days presents to the emergency department for evaluation of a headache that began yesterday. She does have a history of headaches/migraine variants. She has been taking a baby aspirin daily in for this. LMP 09/27/2022. G1, P0. Followed by Natalee Cole/Hernán Bernabe. She denies headache, neck pain vomiting, vision changes, falls or trauma. She does have a history of headaches and this felt similar. Yesterday it was associated with photophobia and right-sided temporal headache. Today it is mostly centered behind the eyes and frontal. Patient denies vaginal bleeding or loss of fluids. She continues to have movement. Review of Systems Constitutional: denies: Fever, Chills Eyes: reports: Photophobia. denies: Discharge, Irritation Nose: reports: Reviewed and negative Throat: reports: Reviewed and negative Cardiac: reports: Reviewed and negative Respiratory: reports: Reviewed and negative : reports: Reviewed and negative Musculoskeletal: reports: Reviewed and negative Neurologic: reports: Headache. 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 : None HEENT: None Psych: None Musculoskeletal: None Derm: None - Past Surgical History Past Surgical History: No - Present Medications Home Medications: Ambulatory Orders Medication Instructions Recorded Confirmed Ondansetron HCl 4 mg PO Q8HR PRN 11/20/22 12/23/22 Vit No.130/Iron/Folic 1 tab PO DAILY 11/20/22 12/23/22 [ Tablet] cephALEXin [Keflex] 500 mg PO BID #14 cap 12/23/22 cephALEXin [Keflex] 500 mg PO BID #14 cap 03/05/23 - Allergies Allergies/Adverse Reactions: Allergies Allergy/AdvReac Type Severity Reaction Status Date / Time No Known Drug Allergies Allergy Verified 03/05/23 09:57 - Social History Does the pt smoke?: No Smoking Status: Never smoker Does the pt drink ETOH?: No Does the pt have substance abuse?: No - Immunizations Immunizations are current?: Yes - POLST Patient has POLST: No PD ED PE NORMAL - General General: Alert and oriented X 3, No acute distress, Well developed/nourished - HEENT HEENT: Atraumatic, Moist mucous membranes - Neck Neck: Supple, no meningeal sign, No adenopathy - Cardiac Cardiac: RRR, No murmur - Respiratory Respiratory: No respiratory distress, Clear bilaterally - Abdomen Abdomen: Normal bowel sounds, Soft. No: Non tender (Palpable uterus just above the umbilicus.) - Derm Derm: Normal color, Warm and dry - Extremities Extremities: No deformity - Neuro Neuro: Alert and oriented X 3, speech therapy teacher 2-12 intact, No motor deficit, No sensory deficit, Normal speech, Other (Normal finger-nose. Normal gait. Normal cerebellar exam) Eye Opening: Spontaneous Motor: Obeys Commands Verbal: Oriented GCS Score: 15 - Psych Psych: Normal mood Results - Vitals Vitals: Vital Signs - 24 hr 03/05/23 03/05/23 09:54 11:57 Temperature 36.9 C Heart Rate 94 82 Respiratory 16 18 Rate Blood Pressure 121/73 102/61 O2 Saturation 100 100 Oxygen O2 Source Room air - Labs Labs: Laboratory Tests 03/05/23 03/05/23 11:50 11:50 WBC 8.2 RBC 3.78 L Hgb 9.7 L Hct 31.7 L MCV 83.9 MCH 25.7 L MCHC 30.6 L RDW 13.7 Plt Count 243 MPV 10.2 Neut # (Auto) 5.0 Lymph # (Auto) 1.8 [place] # (Auto) 1.0 Eos # (Auto) 0.1 Baso # (Auto) 0.0 Absolute Nucleated RBC 0.00 Nucleated RBC % 0.0 Sodium 136 Potassium 3.6 Chloride 111 Carbon Dioxide 23 Anion Gap 2.0 L BUN 7 Creatinine 0.5 Estimated GFR (MDRD) 187 Glucose 79 Calcium 8.6 Total Bilirubin 0.4 AST 27 ALT 48 Alkaline Phosphatase 43 Total Protein 6.9 Albumin 3.2 Globulin 3.7 Albumin/Globulin Ratio 0.9 L Lipase 32 PD Medical Decision Making - ED course Complexity details: reviewed results, re-evaluated patient, considered differential, d/w patient, d/w field technical support consultant (Dhaval) ED course: 22 -year-old female presents emergency department for evaluation of headache in . G1, P0. LMP 09/27/2022. Patient does have a history of headaches preceding this which sounded to be similar to migraines. This headache was no different. She has been taking 81 mg of aspirin prophylactically during for her headache. Here in the emergency department she appears very well. There are no focal neuro or cerebellar deficits noted. Differentials considered include preeclampsia, migraine, venous sinus thrombosis and infection. Her blood pressure here in the emergency department has been normotensive. Initially 127/61 and then 102/60 on repeat. No tachycardia. We did obtain a CBC, electrolytes which are normal for . Likely we see a delusional anemia given hemoglobin of 9.7. There are no abnormal liver or kidney values. Urinalysis without proteinuria. Clinically we have ruled out preeclampsia. Urine does have a fair amount of bacteria in it. Patient is asymptomatic however will treat bacteria in with Keflex. [place] The patient was administered 650 mg of Tylenol with good relief of headache. Given the lack of focal neuro findings or other red flags of headache with the exception of , I have lower suspicion for venous sinus thrombosis. No fevers, neck pain or worrisome leukocytosis. Clinically not consistent with meningitis or encephalitis. No falls or trauma. Given deferred CT imaging. Though clinically her neurological and cerebellar exam is again normal I suspect the cause of this patient's headache to be a migraine variant. I did briefly discussed this case with Dr. Gallego the OB on-call and he is in agreement that the patient is stable for discharge home with the usual expectant return precautions. She will continue to follow with Natalee Cole. Emergent return precautions discussed Departure - Departure Disposition: 01 Home, Self Care Clinical Impression: Bacteria in urine Headache in Qualifiers: Trimester: second trimester Qualified Code(s): O26.892 - Other specified related conditions, second trimester; R51.9 - Headache, unspecified Condition: Stable Record reviewed to determine appropriate education?: Yes Prescriptions: cephALEXin [Keflex] 500 mg PO BID #14 cap Comments: Keiry you are seen today in the emergency department because you developed a headache yesterday that sound very typical for your previous history of headaches/migraines. You are 22 weeks and 5 days . Your heart tones today were 170 which is normal for this stage in . Whenever somebody who is in the second or third trimester presents with headache we do want to rule out worrisome causes such as infection or preeclampsia. Your blood pressures here in the emergency department have been normal. We did obtain a CBC which shows a mild anemia which is very common in and is likely what we call delusional given the extra blood volume needed to support the . Your electrolytes were also normal without findings for concern of kidney or liver abnormalities. As such we do not feel that you have findings consistent with preeclampsia. Your urine does have bacteria in it. Though you do not have symptoms of urinary tract infection is important to treat this in . [place] 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 It is safe to take Tylenol in and you can take this dose 2-3 times a day to help manage your headaches. As always stay well-hydrated. Continue to follow with OB for further evaluation and management of your . Reasons to return to the ER would include sudden severe headache, any fevers, loss of vision, slurred speech, focal weakness in your arms or legs.
[2023-03-05 11:55] LABS: BASOPHILS % (AUTO) 0.2 %; EOSINOPHILS # (AUTO) 0.1 10^3/uL (0.0-0.7); EOSINOPHILS % (AUTO) 0.6 %; HCT - HEMATOCRIT 31.7 % (37.0-47.0); HGB - HEMOGLOBIN 9.7 g/dL (12.0-16.0); LYMPHOCYTES # (AUTO) 1.8 10^3/uL (1.5-3.5); LYMPHOCYTES % (AUTO) 22.1 %; MEAN CORPUSCULAR HEMOGLOBIN 25.7 pg (27.0-31.0); MEAN CORPUSCULAR HGB CONC 30.6 g/dL (32.0-36.0); MEAN CORPUSCULAR VOLUME 83.9 fL (81.0-99.0); MEAN PLATELET VOLUME 10.2 fL (7.9-10.8); NEUTROPHILS % (AUTO) 61.2 %; PLT - PLATELET COUNT 243 10^3/uL (130-450); RED BLOOD COUNT 3.78 10^6/uL (4.20-5.40); RED CELL DISTRIBUTION WIDTH 13.7 % (12.0-15.0); WHITE BLOOD COUNT 8.2 x10^3/uL (4.8-10.8)
[2023-03-05 12:12] LABS: ALBUMIN 3.2 g/dL (3.2-5.5); ALBUMIN/GLOBULIN RATIO 0.9 (1.0-2.2); BILIRUBIN,TOTAL 0.4 mg/dL (0.2-1.0); CALCIUM 8.6 mg/dL (8.5-10.3); CREATININE 0.5 mg/dL (0.4-1.0); POTASSIUM 3.6 mmol/L (3.5-5.0); TOTAL PROTEIN 6.9 g/dL (6.7-8.2)
[2023-03-05] MEDS ORDERED: ACETAMINOPHEN 325 MG TABLET PO STA (12:14)
--- OUTSIDE RECORDS SUMMARY | 2023-03-05 12:15 | EXTERNAL MEDICAL SUMMARY RPT | Continuity of Care Document ---
:2000 Author Organization [facility] Address [address] [place] [address] Phone Care Team Providers Name Role Phone Unavailable Unavailable Unavailable Nikita Newscast Director, Natalee Unavailable Unavailable Cayabyab Do, Luz Unavailable Unavailable Kelsey Newscast Director Enp, Ally Unavailable Unavailable Rod Conde, Luz Unavailable Unavailable Allergies No information. Encounters No information. Functional Status No information. Immunizations No information. Medications date description facility 2023-01-28 00:00 famotidine All 2023-01-28 00:00 famotidine All 2022-12-05 00:00 promethazine All 2022-12-05 00:00 promethazine All 2022-12-05 00:00 promethazine All 2022-12-05 00:00 promethazine All 2023-01-13 00:00 metoclopramide hcl All 2023-01-13 00:00 metoclopramide hcl All 2023-01-13 00:00 metoclopramide hcl All 2023-01-13 00:00 metoclopramide hcl All 2023-01-13 00:00 magnesium glycinate All 2023-01-13 00:00 magnesium glycinate All 2023-01-28 00:00 famotidine All 2023-01-28 00:00 famotidine All 2023-01-28 00:00 famotidine All 2023-01-28 00:00 famotidine All 2023-01-13 00:00 magnesium glycinate All 2023-01-13 00:00 magnesium glycinate All 2022-12-05 00:00 promethazine All 2022-12-05 00:00 promethazine All 2022-12-05 00:00 promethazine All 2022-12-05 00:00 promethazine All 2023-01-28 00:00 famotidine All 2023-01-28 00:00 famotidine All 2023-01-13 00:00 metoclopramide hcl All 2023-01-13 00:00 metoclopramide hcl All 2023-01-13 00:00 metoclopramide hcl All 2023-01-13 00:00 metoclopramide hcl All 2022-12-05 00:00 promethazine All 2022-12-05 00:00 promethazine All 2022-12-05 00:00 promethazine All 2022-12-05 00:00 promethazine All 2023-01-13 00:00 magnesium glycinate All 2023-01-13 00:00 magnesium glycinate All 2022-12-05 00:00 promethazine All 2022-12-05 00:00 promethazine All 2022-12-05 00:00 promethazine All 2022-12-05 00:00 promethazine All Problems date description facility 2022-12-05 00:00 Venereal disease screening All 2022-12-05 [...] abdominal pain All Procedures date description facility 2022-12-05 00:00 Visit Code Hold All 2022-12-05 00:00 Visit Code Hold All 2022-12-05 00:00 Visit Code Hold All 2022-12-05 00:00 Visit Code Hold All 2023-01-28 00:00 Visit Code Hold All 2023-01-28 00:00 Visit Code Hold All 2022-12-05 00:00 Ferritin All 2022-12-05 00:00 Ferritin All 2022-12-05 00:00 Ferritin All 2022-12-05 00:00 Ferritin All 2022-12-05 00:00 CHLAM, NEISSERIA, TRICH DNA All 2022-12-05 00:00 CHLAM, NEISSERIA, TRICH DNA All 2022-12-05 00:00 CHLAM, NEISSERIA, TRICH DNA All 2022-12-05 00:00 CHLAM, NEISSERIA, TRICH DNA All Results/Labs test date author facility value [...] ) (unknown) Social History date description facility 2022-12-05 00:00 Never smoker All 2022-12-05 00:00 Never smoker All 2022-12-05 00:00 Never smoker All 2022-12-05 00:00 Never smoker All 2023-01-02 00:00 Never smoker All 2023-01-02 00:00 Never smoker All 2023-01-02 00:00 Never smoker All Vital Signs date measurement value units 2022-12-05 00:00 BMI 31.57 kg/m2 2022-12-05 00:00 [...]
[2023-03-05 12:45] LABS: BILIRUBIN,URINE NEGATIVE (NEGATIVE); GLUCOSE, URINE (UA) NEGATIVE (NEGATIVE); KETONES,URINE (UA) NEGATIVE (NEGATIVE); LEUKOCYTE ESTERASE, URINE LARGE (NEGATIVE); NITRITE,URINE NEGATIVE (NEGATIVE); OCCULT BLOOD,URINE NEGATIVE (NEGATIVE); PROTEIN,URINE NEGATIVE (NEGATIVE); UROBILINOGEN,URINE 0.2 (NORMAL) E.U./dL (NORMAL)
[2023-03-05 12:47] LABS: CLARITY,URINE SL. CLOUDY (CLEAR)
[2023-03-05 12:51] LABS: BACTERIA,URINE Moderate /HPF (None Seen); RBC,URINE 0-5 /HPF (0-5); SQUAMOUS EPITHELIAL CELL,UR MOD Squamous (<= Few)
[2023-03-05 13:18] VITALS: BP 122/86
== END 2023-03-05 13:17 | disposition home or self-care (01) ==
LOC: ED 09:39
DX: O26.892 Other specified pregnancy related conditions, second trimester (principal); R51.9 Headache, unspecified; R82.71 Bacteriuria; Z3A.22 22 weeks gestation of pregnancy
CPT/HCPCS: 36415; 80053; 81001; 83690; 85025; 99283; 99284; A9270; 81003; 87086

== ENCOUNTER 2023-03-16 10:00 | Emergency (ER) | payer OTHER ==
--- OUTSIDE RECORDS SUMMARY | 2023-03-16 10:42 | EXTERNAL MEDICAL SUMMARY RPT | Continuity of Care Document ---
:2000 Author Organization [facility] Address [address] [place] [address] Phone Care Team Providers Name Role Phone Unavailable Unavailable Unavailable Nikita Anesthesia Tech, Natalee Unavailable Unavailable Cayabyab Do, Luz Unavailable Unavailable Kelsey Anesthesia Tech Enp, Ally Unavailable Unavailable Allergies No information. Encounters No [...] glycinate All 2023-01-13 00:00 magnesium glycinate All Problems date description facility 2023-01-02 00:00 Gestation period, 13 weeks All [...] abdominal pain All Procedures date description facility 2023-01-28 00:00 Visit Code Hold All 2023-01-28 00:00 Visit Code Hold All Results/Labs test date author facility value [...] ) (unknown) Social History date description facility 2023-01-02 00:00 Never smoker All 2023-01-02 00:00 Never smoker All 2023-01-02 00:00 Never smoker All Vital Signs date measurement value units 2023-01-02 00:00 BMI 32.12 kg/m2 2023-01-02 00:00 [...]
== END 2023-03-16 10:40 | disposition home or self-care (01) ==
LOC: ED 10:00
DX: Z53.9 Procedure and treatment not carried out, unspecified reason (principal)
CPT/HCPCS: 99281

== ENCOUNTER 2023-03-16 10:25 | Outpatient (CLI) | payer OTHER ==
[2023-03-16 10:46] VITALS: BP 115/68
--- NOTE | 2023-03-16 12:22 | PROVIDER PROGRESS NOTE ---
- HPI Chief Complaint: Other (Fatigue) Current : Vital Signs Temperature 98.1 F 03/16/23 10:44 Heart Rate 96 03/16/23 10:44 Respiratory Rate 16 03/16/23 10:44 Blood Pressure 115/68 03/16/23 10:44 O2 Saturation 100 03/16/23 10:44 Temperature 98.1 F 03/16/23 10:46 Heart Rate 96 03/16/23 10:44 Respiratory Rate 16 03/16/23 10:44 Blood Pressure 115/68 03/16/23 10:44 O2 Saturation 100 03/16/23 10:44 If not protocol: Oxygen Flow, liters/minute Patient is a 22-year-old G1, P0 at 24 weeks 2 days gestation presenting to triage for fatigue and abdominal pain. She says she has some slight upper abdominal pain in the epigastric region that is mild and intermittent. Tends to be worse with activity, currently not a problem. She also says she feels fatigue and tired. Seems to be worse on days when she works. She says when she has the weekend off and is able to take naps, is much better. She does say she has trouble sleeping and this is contributing to her problems. She goes to bed around 8, will frequently go up around 11 PM and have difficulty sleeping. She gets up finally at 4 to 5 AM. She has good movement, no leaking, no vaginal bleeding. She denies headache, right upper quadrant pain, changes in vision. - Exam Physical Exam Constitutional: alert, no acute distress, well hydrated, well developed, well nourished, appropriate dress. Cardiovascular: Regular rate and rhythm. Respiratory: no respiratory distress. Abdomen: nondistended, nontender, no guarding. Psych: affect and mood appropriate, normal interaction, good eye contact. SVE: Declines - Plan Plan: 20-year-old G1, P0 at 24 weeks gestation with fatigue and abdominal pain 1. Anemia -Patient had ER visit about 1 week ago for headache, this is since resolved. At that time, was found to have a hemoglobin of 9.7, down from 11 in early . -Encourage patient to begin iron supplementation twice daily. Discussed stool changes as well as constipation. Discussed that anemia can definitely cause fatigue 2. Abdominal pain -As this is transient and mild, can likely manage expectantly. Should watch for triggers such as heartburn, activity, or stress. 3. Insomnia -Discussed sleep hygiene, use of melatonin or Unisom in to aid sleeping. Discussed she can take this 30 minutes before bedtime. If she wakes up early enough in the night, can try melatonin at that point. She likely avoid things like Unisom if she has to get up after only several hours. 4. 24 weeks gestation -Follow-up outpatient for routine obstetrical care. Discharged with expectations
== END 2023-03-16 12:06 | disposition home or self-care (01) ==
LOC: WFO 10:25 → FBP 10:29 → WFO 12:06
PROVIDERS: ATTEND Obstetrics & Gynecology
DX: O99.012 Anemia complicating pregnancy, second trimester (principal); O99.891 Other specified diseases and conditions complicating pregnancy; R53.83 Other fatigue; R10.13 Epigastric pain; O99.352 Diseases of the nervous system complicating pregnancy, second trimester; G47.00 Insomnia, unspecified; Z3A.24 24 weeks gestation of pregnancy
CPT/HCPCS: 99214

== ENCOUNTER 2023-04-25 15:49 | Outpatient (CLI) | payer OTHER ==
[2023-04-25] MEDS ORDERED: FERRIC GLUCONATE 125 MG in SODIUM CHLORIDE 0.9% 100ML 100 ML IV ONE (15:51)
[2023-04-25 17:38] VITALS: BP 116/49
== END 2023-04-25 17:37 | disposition home or self-care (01) ==
LOC: WFO 15:49 → FBP 15:51 → WFO 17:37
PROVIDERS: ATTEND Obstetrics & Gynecology
DX: O99.019 Anemia complicating pregnancy, unspecified trimester (principal); D50.9 Iron deficiency anemia, unspecified; Z3A.00 Weeks of gestation of pregnancy not specified
CPT/HCPCS: 96365; J2916

== ENCOUNTER 2023-05-01 07:30 | Outpatient (CLI) | payer OTHER ==
[2023-05-01] MEDS ORDERED: ACETAMINOPHEN 325 MG TABLET PO PRN (08:04)
--- NOTE | 2023-05-01 09:03 | PROVIDER PROGRESS NOTE ---
- HPI Chief Complaint: Other (left lower abd pain. vomited this am. headache.) Current : Vital Signs Temperature 98.2 F 05/01/23 07:43 Temperature 98.2 F 05/01/23 07:44 Heart Rate 91 05/01/23 07:44 Respiratory Rate 16 05/01/23 07:44 Blood Pressure 110/63 05/01/23 07:44 O2 Saturation 100 05/01/23 07:44 If not protocol: Oxygen Flow, liters/minute - Exam Vital signs are stable. FHT reactive, baby very active patient appears well. tolerating water. abdomen is soft, not tender. extremities not tender, no significant swelling. - Procedures NST Procedure: FHTs show a very active baby with baseline about 125. moderate variability. acels to 150s. no decels. no contractions. Service Date of procedure: 05/01/23 - Plan Plan: Assessment: bp is normal. tolerating po. already working with PT on her discomforts. has zofran rx for nausea but has not been needing recently. seems she is stable and OK. Plan: discharge home. was to come in for iv iron tomorrow so will give that to her today. that way we can watch her while she eats and be sure she is able to tolerate her food. Return to clinic as scheduled.
[2023-05-01] MEDS ORDERED: FERRIC GLUCONATE 125 MG in SODIUM CHLORIDE 0.9% 100ML 100 ML IV ONE (09:30)
--- NOTE | 2023-05-01 09:38 | CONSULTATION NOTE ---
Consultation Report: Called for assist with IV placement. Pt with hx difficult start. Ultrasound used to place 20ga at L AC, attempt x2. easily aspirates and flushes, cap, secured, dressing. Pt tolerated without complaint.
[2023-05-01 10:38] VITALS: BP 103/51
== END 2023-05-01 10:44 | disposition home or self-care (01) ==
LOC: WFO 07:30 → FBP 07:31 → WFO 10:44
PROVIDERS: ATTEND Obstetrics & Gynecology
DX: O99.891 Other specified diseases and conditions complicating pregnancy (principal); R10.32 Left lower quadrant pain; O21.9 Vomiting of pregnancy, unspecified; Z3A.00 Weeks of gestation of pregnancy not specified; O99.019 Anemia complicating pregnancy, unspecified trimester; D50.9 Iron deficiency anemia, unspecified; R51.9 Headache, unspecified
CPT/HCPCS: 59025; 96365; 99214; A9270; J2916

== ENCOUNTER 2023-05-05 14:51 | Outpatient (CLI) | payer OTHER ==
[2023-05-05 17:58] LABS: HCT - HEMATOCRIT 32.7 % (37.0-47.0); MEAN CORPUSCULAR HEMOGLOBIN 25.6 pg (27.0-31.0); MEAN CORPUSCULAR HGB CONC 30.6 g/dL (32.0-36.0); MEAN CORPUSCULAR VOLUME 83.6 fL (81.0-99.0); MEAN PLATELET VOLUME 10.9 fL (7.9-10.8); RED BLOOD COUNT 3.91 10^6/uL (4.20-5.40); RED CELL DISTRIBUTION WIDTH 22.5 % (12.0-15.0)
== END 2023-05-05 14:52 | disposition home or self-care (01) ==
LOC: LAB.N 14:51
PROVIDERS: ATTEND Nurse Practitioner
DX: D50.9 Iron deficiency anemia, unspecified (principal)
CPT/HCPCS: 36415; 81599; 82728; 83020; 85027

== ENCOUNTER 2023-05-06 10:04 | Emergency (ER) | payer OTHER ==
--- NOTE | 2023-05-06 10:23 | ED Physician Documentation ---
PD HPI CHEST PAIN - Stated complaint Stated Complaint: SOA - Chief complaint Chief Complaint: Resp - History obtained from History obtained from: Patient - Additional information Additional information: Previously healthy G1, P0 at 32 weeks gestation has been short of breath for the last month. She has an occasional cough with it. Its been progressive. She was diagnosed recently with iron deficiency anemia and her H&H improved after an iron infusion. She has mild bilateral pedal edema. No calf tenderness or asymmetric edema. PD PAST MEDICAL HISTORY - Past Medical History Cardiovascular: None Respiratory: None Neuro: Headaches Endocrine/Autoimmune: None GI: None HOUSESMITH: None : None HEENT: None Psych: None Musculoskeletal: None Derm: None - Past Surgical History Past Surgical History: No - Present Medications Home Medications: Ambulatory Orders Medication Instructions Recorded Confirmed Ondansetron HCl 4 mg PO Q8HR PRN 11/20/22 12/23/22 Vit No.130/Iron/Folic 1 tab PO DAILY 11/20/22 12/23/22 [ Tablet] cephALEXin [Keflex] 500 mg PO BID #14 cap 12/23/22 cephALEXin [Keflex] 500 mg PO BID #14 cap 03/05/23 - Allergies Allergies/Adverse Reactions: Allergies Allergy/AdvReac Type Severity Reaction Status Date / Time No Known Drug Allergies Allergy Verified 05/06/23 10:14 - Social History Does the pt smoke?: No Smoking Status: Never smoker Does the pt drink ETOH?: No Does the pt have substance abuse?: No - Immunizations Immunizations are current?: Yes - POLST Patient has POLST: No PD ED PE NORMAL - Vitals Vital signs reviewed: Yes - General General: Alert and oriented X 3, No acute distress - Neck Neck: No JVD - Cardiac Cardiac: RRR, No murmur - Respiratory Respiratory: No respiratory distress, Clear bilaterally - Abdomen Abdomen: Non tender, Other (Gravid) - Extremities Extremities: Other (Trace pitting pedal edema which is symmetric) - Neuro Neuro: Alert and oriented X 3, Normal speech Results - Vitals Vitals: Vital Signs - 24 hr 05/06/23 10:09 Temperature 36.1 C L Heart Rate 75 Respiratory 18 Rate Blood Pressure 115/70 O2 Saturation 100 Oxygen O2 Source Room air - EKG (time done) 1025 EKG releavant findings:: EKG personally interpreted by author of this note. Relevant findings are: Rate: Rate (enter#) (76) Rhythm: NSR [place]: Normal Intervals: Normal [place] QRS: Normal Ischemia: Non specific changes (FLAT TWAVES INF/ANT) Computer interpretation: Agree with computer - Labs Labs: Laboratory Tests 05/06/23 05/06/23 05/06/23 10:37 10:37 10:37 WBC 5.8 RBC 3.91 L Hgb 9.8 L Hct 32.6 L MCV 83.4 MCH 25.1 L MCHC 30.1 L RDW 22.4 H Plt Count 217 MPV 9.8 Neut # (Auto) 3.5 Lymph # (Auto) 1.3 L [place] # (Auto) 0.8 Eos # (Auto) 0.0 Baso # (Auto) 0.0 Absolute Nucleated RBC 0.00 Nucleated RBC % 0.0 Manual Slide Review Indicated RBC Morph Micro Appear 4+ ANISOCYTOSIS Sodium 137 Potassium 3.4 L Chloride 109 Carbon Dioxide 22 Anion Gap 6.0 BUN < 5 L Creatinine 0.5 Estimated GFR (MDRD) 187 Glucose 69 L Calcium 8.9 B-Natriuretic Peptide 31 - Rads (name of study) Single view chest x-ray is unremarkable Relevant Findings:: Final report received, EMP independent interpretation of ross Y[facility] Medical Decision Making - ED course ED course: 22-year-old woman with ongoing dyspnea in . Given that its been going on for a month this is not consistent with something like a PE. She did have trace pitting pedal edema and CHF with screen for with a BNP which was negative, her chest x-ray was also looking okay. She is anemic but not significantly different from yesterday and certainly not near the transfusion threshold. Suspect her dyspnea is multifactorial from third trimester and normal mass effect from that as well as her anemia. Departure - Departure Disposition: 01 Home, Self Care Clinical Impression: Dyspnea Qualifiers: Dyspnea type: shortness of breath Qualified Code(s): R06.02 - Shortness of breath Anemia Qualifiers: Anemia type: unspecified type Qualified Code(s): D64.9 - Anemia, unspecified Condition: Good Record reviewed to determine appropriate education?: Yes Instructions: ED Dyspnea Shortness of Breath, ED Preg Established Normal Sxs Comments: Your hemoglobin is similar to what it was yesterday, your chest x-ray looks normal and there is no sign of heart failure or anything else serious going on. Call your doctor to arrange a follow-up appointment, make the next available appointment. In the interim, return anytime if worse or if new symptoms develop.
[2023-05-06 10:48] LABS: BASOPHILS % (AUTO) 0.5 %; EOSINOPHILS % (AUTO) 0.5 %; HCT - HEMATOCRIT 32.6 % (37.0-47.0); HGB - HEMOGLOBIN 9.8 g/dL (12.0-16.0); LYMPHOCYTES # (AUTO) 1.3 10^3/uL (1.5-3.5); LYMPHOCYTES % (AUTO) 21.4 %; MEAN CORPUSCULAR HEMOGLOBIN 25.1 pg (27.0-31.0); MEAN CORPUSCULAR HGB CONC 30.1 g/dL (32.0-36.0); MEAN CORPUSCULAR VOLUME 83.4 fL (81.0-99.0); MEAN PLATELET VOLUME 9.8 fL (7.9-10.8); MONOCYTES # (AUTO) 0.8 10^3/uL (0.0-1.0); MONOCYTES % (AUTO) 13.5 %; NEUTROPHILS # (AUTO) 3.5 10^3/uL (1.5-6.6); NEUTROPHILS % (AUTO) 60.2 %; PLT - PLATELET COUNT 217 10^3/uL (130-450); RED BLOOD COUNT 3.91 10^6/uL (4.20-5.40); RED CELL DISTRIBUTION WIDTH 22.4 % (12.0-15.0); WHITE BLOOD COUNT 5.8 x10^3/uL (4.8-10.8)
[2023-05-06 10:54] LABS: SLIDE REVIEW? Indicated
[2023-05-06 10:58] LABS: BUN - BLOOD UREA NITROGEN < 5 mg/dL (6-20); CALCIUM 8.9 mg/dL (8.5-10.3); CARBON DIOXIDE - CO2 22 mmol/L (21-32); CHLORIDE 109 mmol/L (101-111); CREATININE 0.5 mg/dL (0.4-1.0); GFR - MDRD 187 (>89); GLUCOSE 69 mg/dL (70-100); POTASSIUM 3.4 mmol/L (3.5-5.0); SODIUM 137 mmol/L (135-145)
[2023-05-06 11:00] LABS: RBC MORPHOLOGY (MULTIPLE) 4+ ANISOCYTOSIS (NORMAL)
--- NOTE | 2023-05-06 11:04 | XRAY Report ---
PROCEDURE: Chest 1 View X-Ray INDICATIONS: DYSPNEA TECHNIQUE: One view of the chest was acquired. COMPARISON: None. FINDINGS: Surgical changes and devices: None. Lungs and pleura: No pleural effusions or pneumothorax. Lungs are clear. Mediastinum: Mediastinal contours appear normal. Heart size is normal. Bones and chest wall: No suspicious bony lesions. Overlying soft tissues appear unremarkable. IMPRESSION: No acute cardiopulmonary process. Negative chest Reviewed by: Caesar Patel MD on 05/06/2023 11:03 AM PDT Approved by: Caesar Patel MD on 05/06/2023 11:03 AM PDT Station ID: [id number]
[2023-05-06 11:52] VITALS: BP 105/75
== END 2023-05-06 11:49 | disposition home or self-care (01) ==
LOC: ED 10:04
DX: O26.893 Other specified pregnancy related conditions, third trimester (principal); R06.02 Shortness of breath; O99.013 Anemia complicating pregnancy, third trimester; Z3A.32 32 weeks gestation of pregnancy
CPT/HCPCS: 36415; 80048; 83880; 85025; 93005; 99283; 99284

== ENCOUNTER 2023-05-08 12:55 | Outpatient (CLI) | payer OTHER ==
[2023-05-08] MEDS ORDERED: FERRIC GLUCONATE 125 MG in SODIUM CHLORIDE 0.9% 100ML 100 ML IV ONE (14:00)
[2023-05-08 14:58] VITALS: BP 112/60
--- NOTE | 2023-05-08 21:56 | PROVIDER PROGRESS NOTE ---
- HPI Current : Current EDU 07/04/23 Gestation 31 Weeks and 6 Days 1 Para 0 Vital Signs Temperature 98.2 F 05/08/23 13:11 Heart Rate 98 05/08/23 13:11 Respiratory Rate 16 05/08/23 13:11 Blood Pressure 114/52 L 05/08/23 13:11 Temperature 98.2 F 05/08/23 13:11 Heart Rate 92 05/08/23 14:56 Respiratory Rate 18 05/08/23 14:56 Blood Pressure 112/60 05/08/23 14:56 O2 Saturation If not protocol: Oxygen Flow, liters/minute - Procedures NST Procedure: NST Procedure Start Time 07:35 Stop Time 08:30 Patient States Movement Yes - Plan Plan: 22yo at 31.6w presenting for scheduled iron infusion for anemia in , third trimester - Tolerated well - Hgb 6/6 10 and ferritin 75, will discontinue iron infusions at this time. Continue vitamins
== END 2023-05-08 14:57 | disposition home or self-care (01) ==
LOC: WFO 12:55 → FBP 12:56 → WFO 14:57
PROVIDERS: ATTEND Obstetrics & Gynecology
DX: O99.013 Anemia complicating pregnancy, third trimester (principal); D50.9 Iron deficiency anemia, unspecified; Z3A.31 31 weeks gestation of pregnancy
CPT/HCPCS: 96365; J2916

== ENCOUNTER 2023-05-13 15:15 | Outpatient (CLI) | payer OTHER | END 2023-05-13 15:16 | disposition home or self-care (01) | LOC: MAC.MOP 15:15 | PROVIDERS: ATTEND Nurse Practitioner | DX: D50.9 Iron deficiency anemia, unspecified (principal); I49.9 Cardiac arrhythmia, unspecified | CPT/HCPCS: 93242 ==

== ENCOUNTER 2023-05-22 15:30 | Outpatient (CLI) | payer OTHER ==
[2023-05-22 15:54] LABS: ALBUMIN 3.1 g/dL (3.2-5.5); ALBUMIN/GLOBULIN RATIO 0.8 (1.0-2.2); BILIRUBIN,TOTAL 0.6 mg/dL (0.2-1.0); CALCIUM 8.9 mg/dL (8.5-10.3); CREATININE 0.5 mg/dL (0.4-1.0); POTASSIUM 3.7 mmol/L (3.5-5.0); TOTAL PROTEIN 6.8 g/dL (6.7-8.2)
== END 2023-05-22 15:31 | disposition home or self-care (01) ==
LOC: LAB 15:30
PROVIDERS: ATTEND Nurse Practitioner
DX: R10.11 Right upper quadrant pain (principal)
CPT/HCPCS: 36415; 80053; 82570; 84156; 84550

== ENCOUNTER 2023-05-23 08:00 | Outpatient (CLI) | payer OTHER ==
[2023-05-23 18:59] LABS: CREATININE,URINE 95.8 mg/dL; PROTEIN/CREATININE RATIO,URINE 0.1 (<=0.2)
== END 2023-05-23 23:59 | disposition home or self-care (01) ==
LOC: LAB.N 08:00
PROVIDERS: ATTEND Nurse Practitioner
DX: R10.11 Right upper quadrant pain (principal)
CPT/HCPCS: 82570; 84156

== ENCOUNTER 2023-05-25 12:17 | Outpatient (CLI) | payer OTHER ==
[2023-05-25 12:47] VITALS: BP 114/58
[2023-05-25 14:32] LABS: BILIRUBIN,URINE NEGATIVE (NEGATIVE); GLUCOSE, URINE (UA) NEGATIVE (NEGATIVE); KETONES,URINE (UA) NEGATIVE (NEGATIVE); LEUKOCYTE ESTERASE, URINE MODERATE (NEGATIVE); NITRITE,URINE NEGATIVE (NEGATIVE); OCCULT BLOOD,URINE NEGATIVE (NEGATIVE); PROTEIN,URINE NEGATIVE (NEGATIVE); UROBILINOGEN,URINE 0.2 (NORMAL) E.U./dL (NORMAL)
[2023-05-25 14:41] LABS: BACTERIA,URINE Few /HPF (None Seen); CLARITY,URINE CLEAR (CLEAR); MUCUS,URINE Few Strands; RBC,URINE 0-5 /HPF (0-5); SQUAMOUS EPITHELIAL CELL,UR MOD Squamous (<= Few)
--- NOTE | 2023-05-26 08:39 | PROVIDER PROGRESS NOTE ---
- HPI Chief Complaint: Labor Current : Current EDU 07/04/23 Gestation 34 Weeks and 2 Days 1 Para 0 Vital Signs Temperature 97.9 F 05/25/23 12:43 Heart Rate 90 05/25/23 12:43 Respiratory Rate 18 05/25/23 12:43 Blood Pressure 114/58 L 05/25/23 12:43 O2 Saturation 98 05/25/23 12:43 Temperature 97.9 F 05/25/23 12:43 Heart Rate 90 05/25/23 12:43 Respiratory Rate 18 05/25/23 12:43 Blood Pressure 114/58 L 05/25/23 12:43 O2 Saturation 98 05/25/23 12:43 If not protocol: Oxygen Flow, liters/minute - Procedures OB Procedure Performed: NST Diagnosis/Indication for NST: labor NST Procedure: NST Procedure Start Date 05/25/23 Start Time 12:30 Stop Time 13:42 Vibroacoustic Stimulation Used No Patient States Movement Yes EFM: 140s, moderate variability, positive 15 x15 accelerations, no decelerations [place]: irregular contractions q4-8m NST reactive/Cat 1 Service Date of procedure: 05/26/23 - Plan Plan: 22yo at 34.2w presenting for pelvic pressure and cramping. Denies leaking fluid or vaginal bleeding. Good movement. complicated by anemia and received iron infusion x1. VSS GEN: NAD CV: Regular rate Resp: Breathing unlabored Abd: soft, nt Ext: trace edema SVE: closed/50/-3 22yo at 34.2w, false labor - NST reactive - labor precautions reviewed - Discharge to home, follow up as scheduled
== END 2023-05-25 14:00 | disposition home or self-care (01) ==
LOC: WFO 12:17 → FBP 12:19 → WFO 14:00
PROVIDERS: ATTEND Obstetrics & Gynecology
DX: O47.03 False labor before 37 completed weeks of gestation, third trimester (principal); O99.013 Anemia complicating pregnancy, third trimester; Z3A.34 34 weeks gestation of pregnancy
CPT/HCPCS: 59025; 81001; 87086; 99213

== ENCOUNTER 2023-05-26 11:00 | Outpatient (CLI) | payer OTHER | END 2023-05-26 11:01 | disposition home or self-care (01) | LOC: MAC.INF 11:00 | PROVIDERS: ATTEND Nurse Practitioner | DX: R00.0 Tachycardia, unspecified (principal); I49.1 Atrial premature depolarization | CPT/HCPCS: 93244 ==

== ENCOUNTER 2023-06-04 02:00 | Emergency (ER) | payer OTHER ==
--- NOTE | 2023-06-04 02:11 | ED Physician Documentation ---
PD HPI DYSPNEA - Stated complaint Stated Complaint: SOA/RHR - Chief complaint Chief Complaint: Cardiac - History obtained from History obtained from: Patient - Additional information Additional information: HPI from patient. Patient is 35 weeks , [place]. Patient c/o dyspnea, generalized headache, dizziness; these symptoms have been episodic for past few weeks. T+R from this ED / for dyspnea and / for [place], dizziness. No inciting, ameliorating, nor exacerbating factors. Denies abdominal/pelvic pain, denies vaginal bleeding. Review of Systems Constitutional: reports: Reviewed and negative Cardiac: reports: Palpitations. denies: Chest pain / pressure Respiratory: reports: Dyspnea. denies: Cough GI: reports: Reviewed and negative Neurologic: reports: Headache. denies: Generalized weakness, Focal weakness, Numbness PD PAST MEDICAL HISTORY - Past Medical History Cardiovascular: None Respiratory: None Neuro: Headaches Endocrine/Autoimmune: None GI: None AUDIO/VIDEO ENGINEER: None : None HEENT: None Psych: None Musculoskeletal: None Derm: None - Past Surgical History Past Surgical History: No - Present Medications Home Medications: Ambulatory Orders Medication Instructions Recorded Confirmed Ondansetron HCl 4 mg PO Q8HR PRN 11/20/22 06/04/23 Vit No.130/Iron/Folic 1 tab PO DAILY 11/20/22 06/04/23 [ Tablet] Ascorbic Acid [Vitamin C] 500 mg PO DAILY 06/04/23 06/04/23 Ferrous Sulfate 325 mg PO DAILY 06/04/23 06/04/23 - Allergies Allergies/Adverse Reactions: Allergies Allergy/AdvReac Type Severity Reaction Status Date / Time No Known Drug Allergies Allergy Verified 06/04/23 02:07 - Social History Does the pt smoke?: No Smoking Status: Never smoker Does the pt drink ETOH?: No Does the pt have substance abuse?: No - Immunizations Immunizations are current?: Yes - POLST Patient has POLST: No PD ED PE NORMAL - Vitals Vital signs reviewed: Yes - General General: Alert and oriented X 3, No acute distress, Well developed/nourished - HEENT HEENT: Moist mucous membranes - Cardiac Cardiac: RRR, No murmur - Respiratory Respiratory: No respiratory distress, Clear bilaterally - Abdomen Abdomen: Soft, Non tender, Non distended, Other (abdomen is appropriately gravid per 35 week ) - Back Back: No CVA TTP - Derm Derm: Normal color, Warm and dry Results - Vitals Vitals: Oxygen O2 Source Room air - Labs Labs: Microbiology 06/04/23 03:30 Urine Culture - Final Urine,Clean Catch No growth Laboratory Tests 06/04/23 06/04/23 06/04/23 02:50 02:50 03:30 WBC 7.6 RBC 4.14 L Hgb 11.0 L Hct 35.6 L MCV 86.0 MCH 26.6 L MCHC 30.9 L RDW 20.1 H Plt Count 196 MPV 10.8 Neut # (Auto) 4.2 Lymph # (Auto) 1.9 [place] # (Auto) 1.2 H Eos # (Auto) 0.1 Baso # (Auto) 0.0 Absolute Nucleated RBC 0.00 Nucleated RBC % 0.0 Manual Slide Review Indicated WBC Morphology NORMAL APPEARANCE Platelet Estimate NORMAL (130-450,000) Platelet Morphology NORMAL APPEARANCE RBC Morph Micro Appear 1+ ANISOCYTOSIS Sodium 137 Potassium 3.6 Chloride 111 Carbon Dioxide 20 L Anion Gap 6.0 BUN 8 Creatinine 0.5 Estimated GFR (MDRD) 187 Glucose 88 Calcium 8.9 Total Bilirubin 0.5 AST 16 ALT 13 Alkaline Phosphatase 75 Total Protein 6.3 L Albumin 2.9 L Globulin 3.4 Albumin/Globulin Ratio 0.9 L Lipase 28 Urine Color YELLOW Urine Clarity CLEAR Urine pH 6.5 Ur Specific [place] 1.010 Urine Protein NEGATIVE Urine Glucose (UA) NEGATIVE Urine Ketones NEGATIVE Urine Occult Blood NEGATIVE Urine Nitrite NEGATIVE Urine Bilirubin NEGATIVE Urine Urobilinogen 0.2 (NORMAL) Ur Leukocyte Esterase SMALL H Urine RBC None Seen Urine WBC 0-3 Ur Squamous Epith Cells FEW Squamous Urine Bacteria Rare Ur Microscopic Review INDICATED Urine Culture Comments INDICATED PD Medical Decision Making - ED course Complexity details: reviewed results, re-evaluated patient, considered differential, d/w patient ED course: No concerning nor diagnostic findings on blood tests (CBC, ER abdominal panel). Normal NST (performed by RN from court commissioner floor). Results d/w patient, return precautions reviewed. Symptoms have been ongoing and episodic for weeks/months. At this time, no emergent condition is suspected based on HPI, ROS, physical exam, and emergent testing. Departure - Departure Disposition: 01 Home, Self Care Clinical Impression: Qualifiers: Weeks of gestation: 35 weeks Qualified Code(s): Z3A.35 - 35 weeks gestation of Condition: Good Instructions: ED Dyspnea Shortness of Breath Comments: There were no concerning nor diagnostic findings on tonight's tests. Your blood pressure readings were below cutoff/diagnostic range for preeclampsia and not nearly high enough to explain symptoms nor require treatment. Your red blood cell level was slightly below the normal range though not nearly low enough to cause any symptoms. The cause of your symptoms is unclear at this time. Follow-up with your CLINICAL LABORATORY SCIENTIST. Discharge Date/Time: 06/04/23 05:42
[2023-06-04 02:56] LABS: BASOPHILS % (AUTO) 0.4 %; EOSINOPHILS # (AUTO) 0.1 10^3/uL (0.0-0.7); MEAN PLATELET VOLUME 10.8 fL (7.9-10.8)
[2023-06-04 02:58] LABS: EOSINOPHILS % (AUTO) 0.7 %; HCT - HEMATOCRIT 35.6 % (37.0-47.0); LYMPHOCYTES # (AUTO) 1.9 10^3/uL (1.5-3.5); LYMPHOCYTES % (AUTO) 24.9 %; MEAN CORPUSCULAR HEMOGLOBIN 26.6 pg (27.0-31.0); MEAN CORPUSCULAR HGB CONC 30.9 g/dL (32.0-36.0); MONOCYTES # (AUTO) 1.2 10^3/uL (0.0-1.0); MONOCYTES % (AUTO) 15.7 %; NEUTROPHILS # (AUTO) 4.2 10^3/uL (1.5-6.6); PLT - PLATELET COUNT 196 10^3/uL (130-450); RED BLOOD COUNT 4.14 10^6/uL (4.20-5.40); RED CELL DISTRIBUTION WIDTH 20.1 % (12.0-15.0); WHITE BLOOD COUNT 7.6 x10^3/uL (4.8-10.8)
[2023-06-04 03:09] LABS: ALBUMIN 2.9 g/dL (3.2-5.5); ALBUMIN/GLOBULIN RATIO 0.9 (1.0-2.2); BILIRUBIN,TOTAL 0.5 mg/dL (0.2-1.0); CALCIUM 8.9 mg/dL (8.5-10.3); CREATININE 0.5 mg/dL (0.4-1.0); POTASSIUM 3.6 mmol/L (3.5-5.0); TOTAL PROTEIN 6.3 g/dL (6.7-8.2)
[2023-06-04 03:11] LABS: PLATELET ESTIMATE, MANUAL NORMAL (130-450,000) (NORMAL); PLATELET MORPHOLOGY NORMAL APPEARANCE (NORMAL); RBC MORPHOLOGY (MULTIPLE) 1+ ANISOCYTOSIS (NORMAL); SLIDE REVIEW? Indicated; WBC MORPHOLOGY (MULTIPLE) NORMAL APPEARANCE (NORMAL)
[2023-06-04 03:40] LABS: BILIRUBIN,URINE NEGATIVE (NEGATIVE); GLUCOSE, URINE (UA) NEGATIVE (NEGATIVE); KETONES,URINE (UA) NEGATIVE (NEGATIVE); LEUKOCYTE ESTERASE, URINE SMALL (NEGATIVE); NITRITE,URINE NEGATIVE (NEGATIVE); OCCULT BLOOD,URINE NEGATIVE (NEGATIVE); PH,URINE 6.5 PH (5.0-7.5); PROTEIN,URINE NEGATIVE (NEGATIVE); UROBILINOGEN,URINE 0.2 (NORMAL) E.U./dL (NORMAL)
[2023-06-04 03:48] LABS: BACTERIA,URINE Rare /HPF (None Seen); CLARITY,URINE CLEAR (CLEAR); RBC,URINE None Seen /HPF (0-5); SQUAMOUS EPITHELIAL CELL,UR FEW Squamous (<= Few); WBC,URINE 0-3 /HPF (0-5)
[2023-06-04 05:43] VITALS: BP 116/75
--- NOTE | 2023-06-04 21:02 | PROCEDURE REPORT ---
- HPI Diagnosis/Indication for NST: Other (Shortness of breath) Vital Signs Temperature 98.1 F 06/04/23 02:02 Heart Rate 88 06/04/23 02:02 Respiratory Rate 20 06/04/23 02:02 Blood Pressure 123/72 06/04/23 02:02 O2 Saturation 99 06/04/23 02:02 Temperature 97.8 F 06/04/23 05:35 Heart Rate 81 06/04/23 05:35 Respiratory Rate 16 06/04/23 05:35 Blood Pressure 116/75 06/04/23 05:35 O2 Saturation 97 06/04/23 05:35 If not protocol: Oxygen Flow, liters/minute - NST Procedure NST Procedure Start Time 12:30 Stop Time 13:42
== END 2023-06-04 05:42 | disposition home or self-care (01) ==
LOC: ED 02:00
DX: O26.893 Other specified pregnancy related conditions, third trimester (principal); Z3A.35 35 weeks gestation of pregnancy; R06.00 Dyspnea, unspecified; R51.9 Headache, unspecified; R42 Dizziness and giddiness
CPT/HCPCS: 36415; 80053; 81001; 81003; 83690; 85025; 87086; 93005; 99283; 99284

== ENCOUNTER 2023-06-05 10:15 | Outpatient (CLI) | payer OTHER | END 2023-06-05 23:59 | disposition home or self-care (01) | LOC: WFO 10:15 | PROVIDERS: ATTEND Obstetrics & Gynecology | DX: Z36.85 Encounter for antenatal screening for Streptococcus B (principal) | CPT/HCPCS: 87797 ==

== ENCOUNTER 2023-06-24 01:43 | Outpatient (CLI) | payer OTHER ==
[2023-06-24 02:18] VITALS: BP 123/74
--- NOTE | 2023-06-24 18:15 | PROVIDER PROGRESS NOTE ---
- HPI Chief Complaint: Labor Check Current : Current EDU 07/04/23 Gestation 38 Weeks and 4 Days 1 Para 0 Vital Signs Temperature 98.4 F 06/24/23 02:00 Heart Rate 63 06/24/23 02:00 Respiratory Rate 18 06/24/23 02:00 Blood Pressure 123/74 06/24/23 02:00 Temperature 98.4 F 06/24/23 02:00 Heart Rate 63 06/24/23 02:00 Respiratory Rate 18 06/24/23 02:00 Blood Pressure 123/74 06/24/23 02:00 O2 Saturation If not protocol: Oxygen Flow, liters/minute - Procedures OB Procedure Performed: NST NST Procedure: NST Procedure Start Date 06/24/23 Start Time 02:30 Stop Time 02:50 Vibroacoustic Stimulation Used No Patient States Movement Yes EFM: 150s, moderate variability, positive 15x15 accelerations, one early deceleration [place]: irregular q8h NST reactive/Cat 1 Performed and read 06/24/23 Service Date of procedure: 06/24/23 - Plan Plan: 22yo at 38.4w presents with concern of back pain, cramping. Denies leaking fluid or vaginal bleeding. Good movement. uncomplicated. VSS GEN: NAD SVE: 1cm NST reactive 22yo at 38.4w, false labor - Follow up at scheduled visit - NST reactive - Discharge to home
== END 2023-06-24 03:20 | disposition home or self-care (01) ==
LOC: FBP 01:43 → WFO 01:43
PROVIDERS: ATTEND Obstetrics & Gynecology
DX: O47.1 False labor at or after 37 completed weeks of gestation (principal); Z3A.38 38 weeks gestation of pregnancy
CPT/HCPCS: 59025; 99214; 99215

== ENCOUNTER 2023-07-16 10:35 | Observation (INO) | payer OTHER ==
[2023-07-16] MEDS ORDERED: hydrALAZINE INJ 20 MG/ML VIAL IVP ONE (11:08)
[2023-07-16] MEDS ORDERED: CALCIUM GLUC 1,000MG/50ML-NACL 1,000 MG/50 ML BAG IV ONE (11:13)
[2023-07-16] MEDS ORDERED: NIFEdipine 10 MG CAPSULE PO PRN (11:13)
[2023-07-16] MEDS ORDERED: LABETALOL 20 MG/4 ML SYRINGE IVP PRN ×3 (11:13)
[2023-07-16] MEDS ORDERED: MAGNESIUM SULFATE 4 GRAM 4 GM/50 ML BAG IV ONE (11:13)
[2023-07-16] MEDS ORDERED: hydrALAZINE INJ 20 MG/ML VIAL IVP PRN ×2 (11:13)
[2023-07-16] MEDS ORDERED: hydrALAZINE INJ 20 MG/ML VIAL ONE (11:14)
[2023-07-16 11:21] LABS: BASOPHILS % (AUTO) 0.5 %; EOSINOPHILS # (AUTO) 0.1 10^3/uL (0.0-0.7); HCT - HEMATOCRIT 36.8 % (37.0-47.0); HGB - HEMOGLOBIN 11.6 g/dL (12.0-16.0); LYMPHOCYTES # (AUTO) 1.7 10^3/uL (1.5-3.5); LYMPHOCYTES % (AUTO) 26.6 %; MEAN CORPUSCULAR HEMOGLOBIN 27.8 pg (27.0-31.0); MEAN CORPUSCULAR HGB CONC 31.5 g/dL (32.0-36.0); MEAN CORPUSCULAR VOLUME 88.2 fL (81.0-99.0); MEAN PLATELET VOLUME 10.7 fL (7.9-10.8); MONOCYTES # (AUTO) 0.6 10^3/uL (0.0-1.0); NEUTROPHILS # (AUTO) 3.7 10^3/uL (1.5-6.6); PLT - PLATELET COUNT 258 10^3/uL (130-450); RED BLOOD COUNT 4.17 10^6/uL (4.20-5.40); RED CELL DISTRIBUTION WIDTH 16.1 % (12.0-15.0); WHITE BLOOD COUNT 6.3 x10^3/uL (4.8-10.8)
--- NOTE | 2023-07-16 11:23 | HISTORY & PHYSICAL EXAMINATION ---
Admit History - Visit Reason Visit Reason: Other - : 1 Parity: 2 Care: positive: IW (Patient is a 22-year-old G1, P1 day 6 status post a normal spontaneous vaginal delivery who presented in the office for check with severe range blood pressures, systolic in 180s. She has been complaining of a mild headache for the past few days and bilateral lower ext edema.) Smoking Status: Never smoker - HPI Vital Signs Blood Pressure 168/81 H 07/16/23 11:10 Temperature Heart Rate 51 L 07/16/23 11:17 Respiratory Rate 16 07/16/23 11:17 Blood Pressure 159/85 H 07/16/23 11:17 O2 Saturation If not protocol: Oxygen Flow, liters/minute - NST Procedure NST Procedure Start Time 02:30 Stop Time 02:50 Meds/Allgy - Home Medications Home Medications: Ambulatory Orders Medication Instructions Recorded Confirmed Ondansetron HCl 4 mg PO Q8HR PRN 11/20/22 06/26/23 Vit No.130/Iron/Folic 1 tab PO DAILY 11/20/22 06/26/23 [ Tablet] Ascorbic Acid [Vitamin C] 500 mg PO DAILY 06/04/23 06/26/23 Ferrous Sulfate 325 mg PO DAILY 06/04/23 06/26/23 - Allergies Allergies/Adverse Reactions: Allergies Allergy/AdvReac Type Severity Reaction Status Date / Time No Known Drug Allergies Allergy Verified 06/26/23 14:50 Review of Systems - Cardiovascular Cariovascular: denies: Chest pain - Respiratory Respiratory: denies: SOB at rest - Gastrointestinal Gastrointestinal: denies: Abdominal pain - All Other Systems All Other Systems: reports: Reviewed and negative Physical - Abdominal Exam Vital Signs: Temp Pulse Resp BP Pulse Ox O2 Flow Rate 51 L 16 159/85 H 07/16/23 11:17 07/16/23 11:17 07/16/23 11:17 - Other Notes Labor Progress Note/Additional Text: Gen: NAD Pulm: CTA bilaterally Cardiac: RRR Abdomen: soft, non-tender Ext: 2+ bilateral lower extremity edema Neuro: 2+ DTRs, no clonus Plan for Labor - Plan For Labor I expect patient to be DC'd or transferred within 96 hours.: Yes Plan for Labor: 1. preeclampsia with severe features -Magnesium sulfate for seizure prophylaxis -IV hydralazine -Keep SBP<160, DBP<110 -strict Is and Os Discussed with patient will be on magnesium sulfate for seizure prophylaxis for 24 hours, will continue to monitor on p.o. antihypertensives after that time. Reviewed signs and symptoms of preeclampsia and discussed management. All questions answered.
[2023-07-16] MEDS ORDERED: CALCIUM GLUC 1,000MG/50ML-NACL 1,000 MG/50 ML BAG IV PRN (11:38)
[2023-07-16] MEDS: LACTATED RINGERS 1,000 ML IV SCH (11:49)
[2023-07-16 12:01] LABS: ALBUMIN 3.8 g/dL (3.2-5.5); ALBUMIN/GLOBULIN RATIO 1.2 (1.0-2.2); BILIRUBIN,TOTAL 0.8 mg/dL (0.2-1.0); CALCIUM 8.9 mg/dL (8.5-10.3); CREATININE 0.7 mg/dL (0.4-1.0); POTASSIUM 3.8 mmol/L (3.5-5.0); TOTAL PROTEIN 6.9 g/dL (6.7-8.2)
[2023-07-16] MEDS: MAGNESIUM SULFATE IN WATER 20 GM/500 ML IV.SOLN IV SCH ×2 (12:14→21:59)
[2023-07-16 13:19] LABS: CREATININE,URINE 21.4 mg/dL
[2023-07-16 13:54] LABS: TOTAL PROTEIN,URINE TIMED < 4 mg/dL
--- NOTE | 2023-07-16 14:05 | PROVIDER PROGRESS NOTE ---
Subjective - Prog Note Date Prog Note Date: 07/16/23 Prog Note Time: 14:03 - Subjective Subjective: Patient reports headache has resolved. She denies changes in vision right upper quadrant pain. No complaints at this time. Objective - Vital Signs/Intake & Output Reviewed Vital Signs: Yes Vital Signs: Vital Signs x48h Temp Pulse Pulse Resp BP BP 07/16/23 11:58 97.9 F 48 L 18 174/81 H 07/16/23 11:47 144/86 H 07/16/23 11:37 138/86 H 07/16/23 11:17 51 L 16 159/85 H 07/16/23 11:13 46 L 18 168/81 H 07/16/23 11:10 168/81 H Intake & Output: Intake & Output 07/13/23 07/14/23 07/15/23 07/16/23 23:59 23:59 23:59 23:59 Intake Total 50 Balance 50 - Objective General Appearance: positive: No acute distress, Alert Respiratory: positive: Breath sounds nml Cardiovascular: positive: Regular rate & rhythm Abdomen: positive: Non-tender Extremities: positive: Pedal edema (2+) Neurologic/Psychiatric: positive: Oriented x3 Reflexes: Knee (R): 2+, Knee (L): 2+ - Lab Results Fish Bones: 07/16/23 11:00 07/16/23 11:40 Other Labs: Lab Results x24hrs 07/16/23 07/16/23 07/16/23 Range/Units 12:48 11:40 11:40 WBC (4.8-10.8) x10^3/uL RBC (4.20-5.40) 10^6/uL Hgb (12.0-16.0) g/dL Hct (37.0-47.0) % MCV (81.0-99.0) fL MCH (27.0-31.0) pg MCHC (32.0-36.0) g/dL RDW (12.0-15.0) % Plt Count (130-450) 10^3/uL MPV (7.9-10.8) fL Neut # (Auto) (1.5-6.6) 10^3/uL Lymph # (Auto) (1.5-3.5) 10^3/uL [place] # (Auto) (0.0-1.0) 10^3/uL Eos # (Auto) (0.0-0.7) 10^3/uL Baso # (Auto) (0.0-0.1) 10^3/uL Absolute Nucleated RBC x10^3/uL Nucleated RBC % /100WBC Sodium 137 (135-145) mmol/L Potassium 3.8 (3.5-5.0) mmol/L Chloride 109 (101-111) mmol/L Carbon Dioxide 17 L (21-32) mmol/L Anion Gap 11.0 (6-13) BUN 14 (6-20) mg/dL Creatinine 0.7 (0.4-1.0) mg/dL Estimated GFR (MDRD) 127 (>89) Glucose 68 L (70-100) mg/dL Calcium 8.9 (8.5-10.3) mg/dL Total Bilirubin 0.8 (0.2-1.0) mg/dL AST 43 H (10-42) IU/L ALT 48 (10-60) IU/L Alkaline Phosphatase 82 (42-121) IU/L Total Protein 6.9 (6.7-8.2) g/dL Albumin 3.8 (3.2-5.5) g/dL Globulin 3.1 (2.1-4.2) g/dL Albumin/Globulin Ratio 1.2 (1.0-2.2) Urine Creatinine 21.4 mg/dL Ur Total Protein Timed < 4 mg/dL Protein/Creatinin Ratio TNP Blood Type B POSITIVE Antibody Screen NEGATIVE 07/16/23 Range/Units 11:00 WBC 6.3 (4.8-10.8) x10^3/uL RBC 4.17 L (4.20-5.40) 10^6/uL Hgb 11.6 L (12.0-16.0) g/dL Hct 36.8 L (37.0-47.0) % MCV 88.2 (81.0-99.0) fL MCH 27.8 (27.0-31.0) pg MCHC 31.5 L (32.0-36.0) g/dL RDW 16.1 H (12.0-15.0) % Plt Count 258 (130-450) 10^3/uL MPV 10.7 (7.9-10.8) fL Neut # (Auto) 3.7 (1.5-6.6) 10^3/uL Lymph # (Auto) 1.7 (1.5-3.5) 10^3/uL [place] # (Auto) 0.6 (0.0-1.0) 10^3/uL Eos # (Auto) 0.1 (0.0-0.7) 10^3/uL Baso # (Auto) 0.0 (0.0-0.1) 10^3/uL Absolute Nucleated RBC 0.00 x10^3/uL Nucleated RBC % 0.0 /100WBC Sodium (135-145) mmol/L Potassium (3.5-5.0) mmol/L Chloride (101-111) mmol/L Carbon Dioxide (21-32) mmol/L Anion Gap (6-13) BUN (6-20) mg/dL Creatinine (0.4-1.0) mg/dL Estimated GFR (MDRD) (>89) Glucose (70-100) mg/dL Calcium (8.5-10.3) mg/dL Total Bilirubin (0.2-1.0) mg/dL AST (10-42) IU/L ALT (10-60) IU/L Alkaline Phosphatase (42-121) IU/L Total Protein (6.7-8.2) g/dL Albumin (3.2-5.5) g/dL Globulin (2.1-4.2) g/dL Albumin/Globulin Ratio (1.0-2.2) Urine Creatinine mg/dL Ur Total Protein Timed mg/dL Protein/Creatinin Ratio Blood Type Antibody Screen Assessment/Plan - Problem List (1) Pre-eclampsia, Impression: 1. Magnesium sulfate for seizure prophylaxis -No signs of worsening preeclampsia or magnesium toxicity -Strict ins and outs -Patient received 1 dose of IV hydralazine -Keep SBP<160, DBP<110
[2023-07-16] MEDS ORDERED: ACETAMINOPHEN 500 MG TABLET PO PRN (17:54)
[2023-07-16] MEDS ORDERED: oxyCODONE 5 MG TABLET PO ONE (18:02)
--- NOTE | 2023-07-16 19:57 | PROVIDER PROGRESS NOTE ---
Subjective - Prog Note Date Prog Note Date: 07/16/23 Prog Note Time: 19:55 - Subjective Subjective: Patient is complaining of a frontal headache for about the last hour. She received Roxicodone with no improvement. Patient does state that she has a hist ory of headaches that have occurred prior to she typically takes Tylenol with resolution of headache. I discussed trying Tylenol and patient will let me know if no resolution headache. If persists discussed head imaging.She denies any changes in vision. Objective - Vital Signs/Intake & Output Reviewed Vital Signs: Yes Vital Signs: Vital Signs x48h Temp Pulse Pulse Pulse Resp BP BP 07/16/23 19:00 71 18 129/79 07/16/23 18:00 98.2 F 75 18 125/71 07/16/23 17:00 74 16 136/77 H 07/16/23 16:00 87 16 130/67 07/16/23 15:00 84 18 136/87 H 07/16/23 14:30 59 L 18 130/73 07/16/23 14:00 63 15 128/80 07/16/23 13:30 63 18 138/80 H 07/16/23 13:00 69 16 136/87 H 07/16/23 12:30 62 16 128/76 07/16/23 12:13 65 138/72 H 07/16/23 11:58 97.9 F 48 L 18 174/81 H Pulse Ox 07/16/23 19:00 07/16/23 18:00 99 07/16/23 17:00 97 07/16/23 16:00 97 07/16/23 15:00 96 07/16/23 14:30 99 07/16/23 14:00 97 07/16/23 13:30 97 07/16/23 13:00 98 07/16/23 12:30 97 07/16/23 12:13 07/16/23 11:58 Intake & Output: Intake & Output 07/13/23 07/14/23 07/15/23 07/16/23 23:59 23:59 23:59 23:59 Intake Total 1620 Output Total 2700 Balance -1080 - Objective General Appearance: positive: No acute distress Respiratory: positive: Breath sounds nml Cardiovascular: positive: Regular rate & rhythm Abdomen: positive: Non-tender Reflexes: Knee (R): 1+, Knee (L): 1+ - Lab Results Fish Bones: 07/16/23 11:00 07/16/23 11:40 Other Labs: Lab Results x24hrs 07/16/23 07/16/23 07/16/23 Range/Units 12:48 11:40 11:40 WBC (4.8-10.8) x10^3/uL RBC (4.20-5.40) 10^6/uL Hgb (12.0-16.0) g/dL Hct (37.0-47.0) % MCV (81.0-99.0) fL MCH (27.0-31.0) pg MCHC (32.0-36.0) g/dL RDW (12.0-15.0) % Plt Count (130-450) 10^3/uL MPV (7.9-10.8) fL Neut # (Auto) (1.5-6.6) 10^3/uL Lymph # (Auto) (1.5-3.5) 10^3/uL Baker # (Auto) (0.0-1.0) 10^3/uL Eos # (Auto) (0.0-0.7) 10^3/uL Baso # (Auto) (0.0-0.1) 10^3/uL Absolute Nucleated RBC x10^3/uL Nucleated RBC % /100WBC Sodium 137 (135-145) mmol/L Potassium 3.8 (3.5-5.0) mmol/L Chloride 109 (101-111) mmol/L Carbon Dioxide 17 L (21-32) mmol/L Anion Gap 11.0 (6-13) BUN 14 (6-20) mg/dL Creatinine 0.7 (0.4-1.0) mg/dL Estimated GFR (MDRD) 127 (>89) Glucose 68 L (70-100) mg/dL Calcium 8.9 (8.5-10.3) mg/dL Total Bilirubin 0.8 (0.2-1.0) mg/dL AST 43 H (10-42) IU/L ALT 48 (10-60) IU/L Alkaline Phosphatase 82 (42-121) IU/L Total Protein 6.9 (6.7-8.2) g/dL Albumin 3.8 (3.2-5.5) g/dL Globulin 3.1 (2.1-4.2) g/dL Albumin/Globulin Ratio 1.2 (1.0-2.2) Urine Creatinine 21.4 mg/dL Ur Total Protein Timed < 4 mg/dL Protein/Creatinin Ratio TNP Blood Type B POSITIVE Antibody Screen NEGATIVE 07/16/23 Range/Units 11:00 WBC 6.3 (4.8-10.8) x10^3/uL RBC 4.17 L (4.20-5.40) 10^6/uL Hgb 11.6 L (12.0-16.0) g/dL Hct 36.8 L (37.0-47.0) % MCV 88.2 (81.0-99.0) fL MCH 27.8 (27.0-31.0) pg MCHC 31.5 L (32.0-36.0) g/dL RDW 16.1 H (12.0-15.0) % Plt Count 258 (130-450) 10^3/uL MPV 10.7 (7.9-10.8) fL Neut # (Auto) 3.7 (1.5-6.6) 10^3/uL Lymph # (Auto) 1.7 (1.5-3.5) 10^3/uL Baker # (Auto) 0.6 (0.0-1.0) 10^3/uL Eos # (Auto) 0.1 (0.0-0.7) 10^3/uL Baso # (Auto) 0.0 (0.0-0.1) 10^3/uL Absolute Nucleated RBC 0.00 x10^3/uL Nucleated RBC % 0.0 /100WBC Sodium (135-145) mmol/L Potassium (3.5-5.0) mmol/L Chloride (101-111) mmol/L Carbon Dioxide (21-32) mmol/L Anion Gap (6-13) BUN (6-20) mg/dL Creatinine (0.4-1.0) mg/dL Estimated GFR (MDRD) (>89) Glucose (70-100) mg/dL Calcium (8.5-10.3) mg/dL Total Bilirubin (0.2-1.0) mg/dL AST (10-42) IU/L ALT (10-60) IU/L Alkaline Phosphatase (42-121) IU/L Total Protein (6.7-8.2) g/dL Albumin (3.2-5.5) g/dL Globulin (2.1-4.2) g/dL Albumin/Globulin Ratio (1.0-2.2) Urine Creatinine mg/dL Ur Total Protein Timed mg/dL Protein/Creatinin Ratio Blood Type Antibody Screen Assessment/Plan - Problem List (1) Pre-eclampsia, Impression: Continue magnesium sulfate for 24 hours. Patient is complaining of some shortness of breath, Per nursing oxygen saturation has been 97 to 99%, will place pulse oximeter on patient and obtain magnesium level. Discussed with patient trying p.o. Tylenol for headache if no resolution discussed head imaging tomorrow.Patient is not on any antihypertensives at this time and blood pressure has been within normal limits. I discussed signs and symptoms of preeclampsia for when patient is discharged home.
[2023-07-16] MEDS: ACETAMINOPHEN 325 MG TABLET PO PRN (20:27)
[2023-07-17] MEDS: ACETAMINOPHEN 325 MG TABLET PO PRN ×2 (00:39→04:48)
[2023-07-17] MEDS: LACTATED RINGERS 1,000 ML IV SCH (00:52)
[2023-07-17 05:05] VITALS: O2SAT 100
[2023-07-17] MEDS: MAGNESIUM SULFATE IN WATER 20 GM/500 ML IV.SOLN IV SCH (07:55)
--- NOTE | 2023-07-17 08:11 | CT Report ---
PROCEDURE: HEAD WO INDICATIONS: Preeclampsia with persistent headache TECHNIQUE: Noncontrast 4.5 mm thick angled axial sections acquired from the foramen magnum to the vertex. For r adiation dose reduction, the following was used: automated exposure control, adjustment of mA and/or kV according to patient size. COMPARISON: None. FINDINGS: Image quality: Excellent. CSF spaces: Basal cisterns are patent. No extra-axial fluid collections. Ventricles are normal in size and shape. Brain: No midline shift. No intracranial masses or hemorrhage. Young-white matter interface is norm al. Skull and face: Calvarium and visualized facial bones are intact, without suspicious lesions. Sinuses: Visualized sinuses and mastoids are clear. IMPRESSION: No acute intracranial pathology Findings are concordant with preliminary interpretation provided by [facility]. Reviewed by: Emmett Taylor on 07/17/2023 8:10 AM PDT Approved by: Emmett Taylor on 07/17/2023 8:10 AM PDT Station ID: [id number]
--- NOTE | 2023-07-17 09:24 | PROVIDER PROGRESS NOTE ---
Subjective - Prog Note Date Prog Note Date: 07/17/23 Prog Note Time: 10:35 - Subjective Subjective: Patient still has mild frontal headache. CT scan is negative. Tylenol does seem to help. No changes in vision or right upper quadrant pain. Overall feel ing better. Edema has much improved. Objective - Vital Signs/Intake & Output Reviewed Vital Signs: Yes Vital Signs: Vital Signs x48h Temp Pulse Resp BP BP Pulse Ox 07/17/23 09:00 78 16 126/75 07/17/23 08:01 67 133/89 H 07/17/23 07:06 65 16 127/82 H 07/17/23 05:00 85 17 130/81 H 100 07/17/23 04:04 97.8 F 69 21 113/75 97 07/17/23 03:07 67 117/70 95 07/17/23 02:00 64 135/75 H 100 Intake & Output: Intake & Output 07/14/23 07/15/23 07/16/23 07/17/23 23:59 23:59 23:59 23:59 Intake Total 2120 3516.667 Output Total 3815 2310 Balance -1695 1206.667 - Objective General Appearance: positive: No acute distress Eyes Bilateral: positive: Normal inspection Respiratory: positive: No respiratory distress, Breath sounds nml Cardiovascular: positive: Regular rate & rhythm (monitor read 150s while present in room, but was double counting by palpation during two events.), No murmur, No gallop Abdomen: positive: Non-tender Extremities: positive: Full ROM Neurologic/Psychiatric: positive: Oriented x3, CN's nml (2-12) Reflexes: Knee (R): 1+, Knee (L): 1+ - Lab Results Fish Bones: 07/17/23 10:15 07/17/23 10:15 Other Labs: Lab Results x24hrs 07/16/23 07/16/23 07/16/23 Range/Units 20:07 12:48 11:40 WBC (4.8-10.8) x10^3/uL RBC (4.20-5.40) 10^6/uL Hgb (12.0-16.0) g/dL Hct (37.0-47.0) % MCV (81.0-99.0) fL MCH (27.0-31.0) pg MCHC (32.0-36.0) g/dL RDW (12.0-15.0) % Plt Count (130-450) 10^3/uL MPV (7.9-10.8) fL Neut # (Auto) (1.5-6.6) 10^3/uL Lymph # (Auto) (1.5-3.5) 10^3/uL Cherry # (Auto) (0.0-1.0) 10^3/uL Eos # (Auto) (0.0-0.7) 10^3/uL Baso # (Auto) (0.0-0.1) 10^3/uL Absolute Nucleated RBC x10^3/uL Nucleated RBC % /100WBC Sodium (135-145) mmol/L Potassium (3.5-5.0) mmol/L Chloride (101-111) mmol/L Carbon Dioxide (21-32) mmol/L Anion Gap (6-13) BUN (6-20) mg/dL Creatinine (0.4-1.0) mg/dL Estimated GFR (MDRD) (>89) Glucose (70-100) mg/dL Calcium (8.5-10.3) mg/dL Magnesium 4.8 H (1.7-2.3) mg/dL Total Bilirubin (0.2-1.0) mg/dL AST (10-42) IU/L ALT (10-60) IU/L Alkaline Phosphatase (42-121) IU/L Total Protein (6.7-8.2) g/dL Albumin (3.2-5.5) g/dL Globulin (2.1-4.2) g/dL Albumin/Globulin Ratio (1.0-2.2) Urine Creatinine 21.4 mg/dL Ur Total Protein Timed < 4 mg/dL Protein/Creatinin Ratio TNP Blood Type B POSITIVE Antibody Screen NEGATIVE 07/16/23 07/16/23 Range/Units 11:40 11:00 WBC 6.3 (4.8-10.8) x10^3/uL RBC 4.17 L (4.20-5.40) 10^6/uL Hgb 11.6 L (12.0-16.0) g/dL Hct 36.8 L (37.0-47.0) % MCV 88.2 (81.0-99.0) fL MCH 27.8 (27.0-31.0) pg MCHC 31.5 L (32.0-36.0) g/dL RDW 16.1 H (12.0-15.0) % Plt Count 258 (130-450) 10^3/uL MPV 10.7 (7.9-10.8) fL Neut # (Auto) 3.7 (1.5-6.6) 10^3/uL Lymph # (Auto) 1.7 (1.5-3.5) 10^3/uL Cherry # (Auto) 0.6 (0.0-1.0) 10^3/uL Eos # (Auto) 0.1 (0.0-0.7) 10^3/uL Baso # (Auto) 0.0 (0.0-0.1) 10^3/uL Absolute Nucleated RBC 0.00 x10^3/uL Nucleated RBC % 0.0 /100WBC Sodium 137 (135-145) mmol/L Potassium 3.8 (3.5-5.0) mmol/L Chloride 109 (101-111) mmol/L Carbon Dioxide 17 L (21-32) mmol/L Anion Gap 11.0 (6-13) BUN 14 (6-20) mg/dL Creatinine 0.7 (0.4-1.0) mg/dL Estimated GFR (MDRD) 127 (>89) Glucose 68 L (70-100) mg/dL Calcium 8.9 (8.5-10.3) mg/dL Magnesium (1.7-2.3) mg/dL Total Bilirubin 0.8 (0.2-1.0) mg/dL AST 43 H (10-42) IU/L ALT 48 (10-60) IU/L Alkaline Phosphatase 82 (42-121) IU/L Total Protein 6.9 (6.7-8.2) g/dL Albumin 3.8 (3.2-5.5) g/dL Globulin 3.1 (2.1-4.2) g/dL Albumin/Globulin Ratio 1.2 (1.0-2.2) Urine Creatinine mg/dL Ur Total Protein Timed mg/dL Protein/Creatinin Ratio Blood Type Antibody Screen - Diagnostic Imaging Diagnostic Imaging Results: positive: Prelim report reviewed Diagnostic Imaging Comments: Normal CT head without contrast. No acute findings. Assessment/Plan - Problem List (1) Pre-eclampsia, Impression: No signs of worsening disease. Labs not concerning for preeclampsia. Magnesium and therapeutic level. Will discontinue magnesium at 24 hours and assess placement as she gets up and more active. Has not required additional antihypertensives since her initial 5 mg of hydralazine yesterday morning. Possible discharge this evening. Has blood pressure cuff at home and will continue to check. We will follow-up in several days for blood pressure check in clinic.
[2023-07-17 10:20] LABS: BASOPHILS % (AUTO) 0.4 %; EOSINOPHILS # (AUTO) 0.1 10^3/uL (0.0-0.7); EOSINOPHILS % (AUTO) 1.4 %; HCT - HEMATOCRIT 37.6 % (37.0-47.0); LYMPHOCYTES # (AUTO) 1.1 10^3/uL (1.5-3.5); LYMPHOCYTES % (AUTO) 22.9 %; MEAN CORPUSCULAR HEMOGLOBIN 27.9 pg (27.0-31.0); MEAN CORPUSCULAR HGB CONC 31.9 g/dL (32.0-36.0); MEAN CORPUSCULAR VOLUME 87.4 fL (81.0-99.0); MEAN PLATELET VOLUME 9.9 fL (7.9-10.8); MONOCYTES # (AUTO) 0.5 10^3/uL (0.0-1.0); MONOCYTES % (AUTO) 9.4 %; NEUTROPHILS # (AUTO) 3.2 10^3/uL (1.5-6.6); NEUTROPHILS % (AUTO) 64.3 %; PLT - PLATELET COUNT 257 10^3/uL (130-450); RED CELL DISTRIBUTION WIDTH 15.8 % (12.0-15.0)
[2023-07-17 10:40] LABS: ALBUMIN 3.7 g/dL (3.2-5.5); ALBUMIN/GLOBULIN RATIO 1.3 (1.0-2.2); BILIRUBIN,TOTAL 0.6 mg/dL (0.2-1.0); CALCIUM 7.6 mg/dL (8.5-10.3); CREATININE 0.7 mg/dL (0.6-1.3); POTASSIUM 3.7 mmol/L (3.5-4.5); TOTAL PROTEIN 6.6 g/dL (6.4-8.9)
[2023-07-17 10:41] LABS: MAGNESIUM 5.8 mg/dL (1.7-2.3)
[2023-07-17 16:44] VITALS: BP 128/85
--- NOTE | 2023-07-17 18:10 | DISCHARGE SUMMARY ---
Discharge Summary Admit Date: 07/16/23 Discharge Date: 07/17/23 Discharging Provider: Hernán Bernabe MD Code Status: Attempt Resuscitation Condition at Discharge: Good Discharge Disposition: 01 Home, Self Care - DIAGNOSES Admission Diagnoses: preeclampsia with severe features Discharge Diagnoses with Status of Each Condition: preeclampsia with severe features: Stable - HPI History of Present Illness: Headache has resolved after magnesium was discontinued. She is feeling well with no headache, vision changes, right upper quadrant pain. She does desire to go home. Physical Exam Constitutional: alert, no acute distress, well hydrated, well developed, well nourished, appropriate dress. Cardiovascular: Regular rate and rhythm. Respiratory: Clear to auscultation bilaterally, no respiratory distress. Abdomen: nondistended, nontender, no guarding. Extremities 1+ DTRs Psych: affect and mood appropriate, normal interaction, good eye contact. - HOSPITAL COURSE Hospital Course: Patient was admitted on day 6 for severe range blood pressures noted in clinic. She had continued elevated pressures here in the severe range and received 1 dose of hydralazine. She was started on magnesium for seizure prophylaxis. Subsequently, she had no elevations in blood pressures without need for additional medications. She had 24 hours of magnesium which was then discontinued. She was observed doing normal activity afterwards and had blood pressures in the 110s to 120s over 70s to 80s and wanted to return home. We discussed checking her blood pressure tonight and again twice a day moving forward. She will call if any aberrations. She has follow-up in several days for blood pressure check. - ALLERGIES Allergies/Adverse Reactions: Allergies Allergy/AdvReac Type Severity Reaction Status Date / Time No Known Drug Allergies Allergy Verified 06/26/23 14:50 - MEDICATIONS Home Medications: Ambulatory Orders Medication Instructions Recorded Confirmed Ondansetron HCl 4 mg PO Q8HR PRN 11/20/22 06/26/23 Vit No.130/Iron/Folic 1 tab PO DAILY 11/20/22 06/26/23 [ Tablet] Ascorbic Acid [Vitamin C] 500 mg PO DAILY 06/04/23 06/26/23 Ferrous Sulfate 325 mg PO DAILY 06/04/23 06/26/23 - LABS Result Diagrams: 07/17/23 10:15 07/17/23 10:15 - FOLLOW UP Follow Up: With Hernán Bernabe MD at [facility] - TIME SPENT Time Spent in Discharge (Minutes): 20
--- NOTE | 2023-07-17 19:58 | Labor Flowsheet ---
Labor Flowsheet Datetime Report Generated by CPN: 07/17/2023 19:57 Datetime: 07/17/2023 18:19 VITAL SIGNS NBP Sys/Virgie/Mean (mmHg): 146 : 98 : 110 Pulse: 71 LaborFlag: Labor Datetime: 07/17/2023 18:15 SpO2 (%): 100 Datetime: 07/16/2023 11:00 Stage of : Labor Datetime: 07/10/2023 01:37 Medication Comments: Turned off epidural Datetime: 07/10/2023 01:30 UTERINE ACTIVITY Monitor Mode: Palpation Frequency (min): 2-4 Quality: Strong Duration (sec): 60-100 Pattern: Normal: <= 5 Contractions in 10 Minutes Resting Tone (Palpate): Relaxed Comments: indeterminate of FHR Datetime: 07/10/2023 01:15 Pitocin Checklist: At Least 1 Acceleration of 15 bpm x 15 Seconds in 30 Minutes or Adequate Variabi lity; No More than 1 Late Deceleration Occurred in Past 30 Minutes; No More than 2 Variable Decelerat ions > 60 Seconds in Duration and decreasing >60 bpm in 30 minutes; No More than 5 Uterine Contractio ns in 10 Minutes for any 20 Minute Interval; Uterus Palpates Soft between Contractions ASSESSMENT A Monitor Mode: Telemetry FHR Baseline Rate : 150 Variability: Moderate 6-25 bpm Accelerations: 15X15 Decelerations: Early; Variable Category: Category II Datetime: 07/10/2023 01:12 MEDICATIONS Pitocin (milliunits): Increased to @ 6 Datetime: 07/10/2023 01:04 Patient Position/Activity: Left Tilt; High Fowlers Datetime: 07/10/2023 00:58 COMMUNICATION Communication: Provider at Bedside Datetime: 07/10/2023 00:32 Provider Reviewed Strip: Yes Notification Reason: Status Update; Status; Labor Status; Maternal Vital Sign Change Communication Comments: Updated provider of category 2 reading, minimal variability, variable dece ls. Instructed to reposition pt's legs to promote blood flow per provider. Provider in house and rev iewing strip. Datetime: 07/10/2023 00:31 Vital Sign Comments: Auscultated maternal heart rate for one minute Datetime: 07/10/2023 00:30 FHR Baseline Changes: No Baseline Change Datetime: 07/10/2023 00:03 Respirations: 19 Temperature (C): 37.0 Datetime: 07/10/2023 00:00 Actions for Decelerations: Provider Notified Datetime: 07/09/2023 23:36 I/O Interventions: Ice Chips Given Datetime: 07/09/2023 23:34 Patient Care Comments: Encouraged deep breathing during resting period from UCs Datetime: 07/09/2023 23:19 PATIENT CARE IV/Blood Work: IV Bag Number @ 2 Datetime: 07/09/2023 22:53 Pain Type: Pressure STAGE 2 Pushing: Coached on Pushing Pushing Position: Pushing with Contractions Datetime: 07/09/2023 22:21 VAGINAL EXAM Dilatation (cm): 10.0 Exam by: Dr. Eulalio Vaginal Exam Comments: complete Datetime: 07/09/2023 20:30 Contraction Comments: coupling of UCs noted Datetime: 07/09/2023 20:15 Effacement (%): 100 Station: -1 Datetime: 07/09/2023 20:05 Anesthesia Level Check: T8- Ribs Datetime: 07/09/2023 20:03 Pain Assessment Comments: Pt c/o feeling a lot of pressure in her bottom Datetime: 07/09/2023 19:29 PAIN Pain Scale: 1 Pain Coping: Talking Through Contractions; Breathing Through Contractions Comfort Measures: Breathing/Relaxation Datetime: 07/09/2023 18:04 Epidural Procedure Other: Pump Started Datetime: 07/09/2023 17:53 Epidural Procedure: Test Dose Datetime: 07/09/2023 17:45 Antiemetics/Antacids: Zofran (mg) @ 4mg Datetime: 07/09/2023 17:38 PROCEDURE TIME OUT Procedure Verify: Correct Patient Identity; Correct Side and Site are Marked; Accurate Procedure Co nsent Form; Agreement on Procedure to be Done; Correct Patient Position ANESTHESIA Anesthesia Plans: Epidural Epidural Positioning: Sitting Datetime: 07/09/2023 17:31 Provider Notified (Name): CLINICAL EDUCATION SPECIALIST Pito Patel Datetime: 07/09/2023 17:13 Vaginal Bleeding: Normal Show Cervix, Position: Midposition Datetime: 07/09/2023 16:59 Monitor Interventions for UA: [place] Adjusted Datetime: 07/09/2023 16:56 Nausea/Vomiting: Present Datetime: 07/09/2023 16:21 Pain Presence: Intermittent Pain Location: Abdomen; Back Hygiene: Complete Bath Datetime: 07/09/2023 14:12 Membrane Status: Ruptured Membranes Rupture Method: Spontaneous Amniotic Fluid Color: Clear Amniotic Fluid Amount: Scant Nitrazine: Positive Datetime: 07/09/2023 13:10 Cervical Ripening Agents: Cytotec @ Cervical Ripening Agents Other: 25mg vaginally Datetime: 07/09/2023 09:30 Monitor Interventions for FHR: Ultrasound Adjusted Datetime: 07/09/2023 07:54 MATERNAL ASSESSMENT Level of Consciousness: Drowsy Datetime: 07/09/2023 06:20 Temperature Route: Oral Datetime: 07/09/2023 01:02 DTR's/Clonus: DTRs 1+; No Clonus Headache: Denies Breath Sounds, Left: Clear and Equal Breath Sounds, Right: Clear and Equal RUQ Epigastric Pain: Denies Datetime: 07/09/2023 00:00 Pain Goal: 5 Pain Relief Measures: Comfort Measures GARCIA'S SCORE Dilatation (cm): 3-4 cms Effacement: 0-30_ effaced Station: minus 3 Consistency: Medium Position: Posterior Total Garcia's Score: 3 : 0-4 = Unfavorable cervix TEACHING Instructional Method: Demo; Patient Instructed; Family/Support Person Instructed; Verbalized Unders tanding Plan of Care: Plan of Care Discussed; Induction Unit Routine: [place] to Room; Call Pareeds; Bed; Visiting Policy; Phone/Cell Phone Use; Photography; U nit Personnel; Handwashing; Monitoring; Safety/Fall Risk Prevention; Diet/Nutrition Services; B athroom Privileges; Medications Labor/Induction: Cervical Ripening; Induction Pain Management: PRN Medications; Pain Scale/Goals; Comfort Measures Related: Hydration; Activity and Rest Datetime: 07/08/2023 22:35 Cervix, Consistency: Moderate Presentation 'A': Cephalic Lie 'A': Longitudinal Datetime: 02/18/2023 12:11 Membranes Ruptured Date/Time: 07/09/2023 14:12 Amniotic Fluid Odor: Normal
== END 2023-07-17 19:56 | disposition home or self-care (01) ==
LOC: WFO 10:35 → FBP 10:36 → WFO 22:37
PROVIDERS: ADMIT Obstetrics & Gynecology Obstetrics; ATTEND Obstetrics & Gynecology Obstetrics
DX: O14.15 Severe pre-eclampsia, complicating the puerperium (principal); R06.02 Shortness of breath; Z79.899 Other long term (current) drug therapy
CPT/HCPCS: 36415; 51702; 70450; 80053; 82570; 83735; 84156; 85025; 86850; 86900; 86901; 96365; 96366; 96375; A9270; G0378; J7120; J3475

== ENCOUNTER 2023-07-18 11:57 | Observation (INO) | payer OTHER ==
--- NOTE | 2023-07-18 12:11 | ED Physician Documentation ---
PD HPI DYSPNEA - Stated complaint Stated Complaint: HIGH BP - History obtained from History obtained from: Patient - History of Present Illness Timing - onset: How many days ago (3) Timing - onset during: Light activity Timing - duration: Days (3) Timing - details: Gradual onset (has noted some dyspnea post . BP noted elevated on check appt in office 2 days ago. BP 160-180 systolic with some headache.) Inciting event(s): No: URI, Immobilization/travel Improved by: Rest. No: Sitting up Worsened by: Exertion. No: Laying flat Associated symptoms: Bilateral edema (at end of and has continued though improving since delivery.). No: Fever, Cough, Wheezing Similar symptoms before: Has not had sx before Recently seen: Clinic, Admitted (Admitted for day 2 days ago because of the elevated blood pressure. Had labs and head CT scan. Treated with hydralazine and magnesium. Blood pressure was better. No meds on discharge but to watch the blood pressure regularly.) Review of Systems Constitutional: denies: Fever, Chills Eyes: denies: Decreased vision Nose: denies: Rhinorrhea / runny nose, Congestion Throat: denies: Sore throat Cardiac: reports: Pedal edema (the past few weeks end of and post , though is improving the past week since delivery.). denies: Chest pain / pressure, Palpitations, Calf pain Respiratory: reports: Dyspnea. denies: Cough GI: denies: Vomiting, Diarrhea Musculoskeletal: reports: Extremity swelling (both ankles/feet.) Neurologic: reports: Headache. 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 : None HEENT: None Psych: None Musculoskeletal: None Derm: None - Past Surgical History Past Surgical History: No - Present Medications Home Medications: Ambulatory Orders Medication Instructions Recorded Confirmed Vit No.130/Iron/Folic 1 tab PO DAILY 11/20/22 07/18/23 [ Tablet] Ferrous Sulfate 325 mg PO DAILY 06/04/23 07/18/23 Cyanocobalamin (Vitamin B-12) 5,000 mcg PO DAILY 07/18/23 07/18/23 [Vitamin B12] NIFEdipine [Nifedipine ER] 30 mg PO DAILY #30 tab 07/18/23 - Allergies Allergies/Adverse Reactions: Allergies Allergy/AdvReac Type Severity Reaction Status Date / Time No Known Drug Allergies Allergy Verified 07/18/23 12:14 - Social History Does the pt smoke?: No Smoking Status: Never smoker Does the pt drink ETOH?: No Does the pt have substance abuse?: No - Immunizations Immunizations are current?: Yes - POLST Patient has POLST: No PD ED PE NORMAL - Vitals Vital signs reviewed: Yes - General General: Alert and oriented X 3, No acute distress, Well developed/nourished - Neck Neck: Supple, no meningeal sign, No adenopathy - Cardiac Cardiac: RRR, No murmur - Respiratory Respiratory: Clear bilaterally - Abdomen Abdomen: Soft, Non tender - Derm Derm: Normal color, Warm and dry - Extremities Extremities: No calf tenderness / cord, Other (1+ edema around both lower legs/ankles and feet. No swelling to level of knees. ) - Neuro Neuro: Alert and oriented X 3, No motor deficit, Normal speech Results - Vitals Vitals: Vital Signs - 24 hr 07/18/23 07/18/23 07/18/23 12:06 13:55 14:33 Temperature 36.7 C Heart Rate 65 69 56 L Respiratory 15 20 12 Rate Blood Pressure 163/105 H 132/93 H 130/91 H O2 Saturation 98 100 100 Oxygen O2 Source Room air - EKG (time done) 13:13 EKG releavant findings:: EKG personally interpreted by author of this note. Relevant findings are: Rate: Rate (enter#) (54) Rhythm: Sinus bradycardia [place]: Normal Intervals: Normal DC QRS: Normal Ischemia: Normal ST segments. No: ST elevation c/w ischemia, ST depression - Labs Labs: Laboratory Tests 07/18/23 07/18/23 07/18/23 12:57 12:57 12:57 WBC 5.2 RBC 4.47 Hgb 12.4 Hct 39.5 MCV 88.4 MCH 27.7 MCHC 31.4 L RDW 15.6 H Plt Count 287 MPV 10.1 Neut # (Auto) 2.7 Lymph # (Auto) 1.8 Jones # (Auto) 0.5 Eos # (Auto) 0.1 Baso # (Auto) 0.0 Absolute Nucleated RBC 0.00 Nucleated RBC % 0.0 D-Dimer Sodium 138 Potassium 4.0 Chloride 108 Carbon Dioxide 22 Anion Gap 8.0 BUN 9 Creatinine 0.7 Estimated GFR (MDRD) 127 Glucose 73 L Calcium 9.9 Phosphorus 4.1 Magnesium 2.1 Total Bilirubin 0.7 AST 24 ALT 30 Alkaline Phosphatase 92 B-Natriuretic Peptide 36 Total Protein 7.2 Albumin 4.1 Globulin 3.1 Albumin/Globulin Ratio 1.3 Lipase 19 07/18/23 12:57 WBC RBC Hgb Hct MCV MCH MCHC RDW Plt Count MPV Neut # (Auto) Lymph # (Auto) Jones # (Auto) Eos # (Auto) Baso # (Auto) Absolute Nucleated RBC Nucleated RBC % D-Dimer > 1050.0 H Sodium Potassium Chloride Carbon Dioxide Anion Gap BUN Creatinine Estimated GFR (MDRD) Glucose Calcium Phosphorus Magnesium Total Bilirubin AST ALT Alkaline Phosphatase B-Natriuretic Peptide Total Protein Albumin Globulin Albumin/Globulin Ratio Lipase - Rads (name of study) chest xray Relevant Findings:: Prelim report reviewed, EMP independent interpretation of test (no acute process) PD Medical Decision Making - ED course Complexity details: reviewed results (chest xray is good. No signs of heart strain on xray, BNP, ECG. Dyspnea improved with lowered BP. Sats good. No chest pain. Discussion with Dr. Bernabe considering PE to be low suspicion. Could consider leg U/S as alternative testing if concerned. ), considered differential, d/w patient, d/w reporting process consultant (Dr. Bernabe for [facility] - reviewed the findings and tests, treatments. BP improved and her headache/dyspnea have improved. Still concern fro maintaining controlled BP. He will have the patient to L&D for further treatment. ) ED course: She did not have hypertension during . This was noted and appointment 2 days ago. She has had dyspnea which she attributed to the delivery and also being anemic. She has had some headache but states she has a history of those in the past. She has been taking some Tylenol at times. She does have swelling in both ankles which is common with end of . No calf tenderness per se. However given the complaint of dyspnea and elevated blood pressure, we can look for signs of congestive heart failure or cardiomyopathy with BNP and chest x-ray and EKG. Consideration for DVT as well. We can obtain a D-dimer test though in the state its likely to be elevated to some degree. Dr. Bernabe did talk with us here in the ER that the patient would be coming. He wants update as we obtain tests and information. Recheck patient's blood pressure is now 132 systolic. She states her headache was improving with Toradol and the hydralazine but is come back a little bit now with the magnesium. She was given 5 mg hydralazine IV and 4 g of magnesium IV. I talked with Dr. Bernabe about the patient condition and also the lab test regarding the dyspnea. The patient has a normal chest x-ray with appearing normal heart size. EKG is appears normal without any signs of heart strain. Her BNP is normal as well. I had ordered the D-dimer and expected it to be elevated in the period if it had been negative that would have been very useful. The elevated level does not really distinguish from other causes. In the context however of normal EKG, BNP, O2 sats and decreasing leg edema over the last couple of days, I have a lower suspicion for PE at this point. Defer to Dr. Bernabe but in discussion were feeling the D-dimer itself is not indicative enough in the context. At this point the elevated blood pressure along with the feeling of dyspnea and headache would be consistent with the preeclampsia. Dr. Bernabe will place the patient in observation on labor and delivery and assume care. Departure - Departure Disposition: ED Place in Observation Clinical Impression: Hypertension in , condition, Pre-eclampsia, Condition: Stable Discharge Date/Time: 07/18/23 15:30
[2023-07-18] MEDS ORDERED: MAGNESIUM SULFATE 4 GRAM 4 GM/50 ML BAG IV ONE (12:32)
[2023-07-18] MEDS ORDERED: hydrALAZINE INJ 20 MG/ML VIAL IVP STA (12:33)
[2023-07-18] MEDS ORDERED: KETOROLAC 15 MG/ML VIAL IVP STA (12:39)
[2023-07-18 13:09] LABS: BASOPHILS % (AUTO) 0.4 %; EOSINOPHILS # (AUTO) 0.1 10^3/uL (0.0-0.7); EOSINOPHILS % (AUTO) 1.3 %; HCT - HEMATOCRIT 39.5 % (37.0-47.0); HGB - HEMOGLOBIN 12.4 g/dL (12.0-16.0); LYMPHOCYTES # (AUTO) 1.8 10^3/uL (1.5-3.5); MEAN CORPUSCULAR HEMOGLOBIN 27.7 pg (27.0-31.0); MEAN CORPUSCULAR HGB CONC 31.4 g/dL (32.0-36.0); MEAN CORPUSCULAR VOLUME 88.4 fL (81.0-99.0); MEAN PLATELET VOLUME 10.1 fL (7.9-10.8); MONOCYTES # (AUTO) 0.5 10^3/uL (0.0-1.0); MONOCYTES % (AUTO) 10.4 %; NEUTROPHILS # (AUTO) 2.7 10^3/uL (1.5-6.6); NEUTROPHILS % (AUTO) 52.7 %; PLT - PLATELET COUNT 287 10^3/uL (130-450); RED BLOOD COUNT 4.47 10^6/uL (4.20-5.40); RED CELL DISTRIBUTION WIDTH 15.6 % (12.0-15.0); WHITE BLOOD COUNT 5.2 x10^3/uL (4.8-10.8)
--- NOTE | 2023-07-18 13:17 | XRAY Report ---
PROCEDURE: Chest 1 View X-Ray INDICATIONS: chest pain TECHNIQUE: One view of the chest was acquired. COMPARISON: 05/06/2023. FINDINGS: Surgical changes and devices: None. Lungs and pleura: No pleural effusions or pneumothorax. Lungs are clear. Mediastinum: Mediastinal contours appear normal. Heart size is normal. Bones and chest wall: No suspicious bony lesions. Overlying soft tissues appear unremarkable. IMPRESSION: No acute cardiopulmonary process. Reviewed by: Caesar Patel MD on 07/18/2023 1:16 PM PDT Approved by: Caesar Patel MD on 07/18/2023 1:16 PM PDT Station ID: [id number]
[2023-07-18 13:18] LABS: ALBUMIN 4.1 g/dL (3.2-5.5); ALBUMIN/GLOBULIN RATIO 1.3 (1.0-2.2); BILIRUBIN,TOTAL 0.7 mg/dL (0.2-1.0); CALCIUM 9.9 mg/dL (8.5-10.3); CREATININE 0.7 mg/dL (0.6-1.3); MAGNESIUM 2.1 mg/dL (1.7-2.3); PHOSPHORUS 4.1 mg/dL (2.5-5.0); TOTAL PROTEIN 7.2 g/dL (6.4-8.9)
[2023-07-18] MEDS ORDERED: SODIUM CHLORIDE FLUSH 0.9% 10 ML SYRINGE IVP PRN (15:08)
--- NOTE | 2023-07-18 15:40 | HISTORY & PHYSICAL EXAMINATION ---
Admit History - Visit Reason Visit Reason: Other (Preeclampsia with severe features) - : 1 Parity: 1 Smoking Status: Never smoker - Other Maternal History Other Maternal History: HPI: Patient is a 22-year-old G1, P1 day 8 from a spontaneous vaginal delivery who presented today with shortness of breath and severe-ranged blood pressures. On day 6, she developed severe range blood pressures noted in the office and was admitted for preeclampsia with severe features. She received 24 hours of magnesium sulfate therapy. On initial presentation, she received 1 dose of hydralazine, but had an unremarkable course after that and went home. This morning she was rechecking blood pressures and noted that they were again in the severe range so she came to the emergency room for evaluation. She also complained of shortness of breath and some abdominal pain, but no significant pathologies have been identified. Shortness of breath and abdominal pain have since subsided. She does have a headache that restarted in the ED. She is unsure if this is from the nifedipine or worsening disease. She has had an issue with headaches throughout . She did receive 1 dose of hydralazine 5 mg in the ED after delivery and blood pressure noted. She did have an elevated D-dimer, but this is normal in and immediately . No signs of DVT on exam and no symptoms. All other symptoms reviewed and were negative except per HPI. PMH Denies pertinent medical history PSH No prior surgeries OB History G1, P1 1. 07/10/2023: 40 weeks 6 days, male, , 3148 g complicated by preeclampsia with severe features SH Denies tobacco, blood, drugs Family History Mother: COPD Maternal grandfather: Diabetes Maternal grandmother: Diabetes Aunt: Diabetes Allergies No known drug allergies Medications vitamins Physical exam: General: Alert, oriented, no acute distress Head: Normal cephalic atraumatic Eyes: PERRLA, extraocular motions intact. Respiratory: Normal rate of respiration. No accessory muscle use, normal respiratory effort. Clear to auscultation bilaterally Cardiovascular: Regular rate and rhythm Abdomen: Gravid, nontender, nondistended Extremities: Normal range of motion. 1+ DTR bilateral lower extremities. 1+ swelling bilateral lower extremities. Neuro: Oriented x3. Normal movements Psych: Appropriate mood and affect. Normal judgment and insight Plan 22-year-old status post with preeclampsia with severe features Preeclampsia with severe features -Received additional 4 gram bolus of magnesium -Blood pressure appears to be labile. -We will start nifedipine 30 mg extended release to get better control blood pressure. -Plan to observe for worsening disease.If blood pressures stabilize, will be able to discharge, but want to avoid repeat ED visits. care -Routing care. - HPI Vital Signs Temperature 98.1 F 07/18/23 12:06 Heart Rate 65 07/18/23 12:06 Respiratory Rate 15 07/18/23 12:06 Blood Pressure 163/105 H 07/18/23 12:06 O2 Saturation 98 07/18/23 12:06 Temperature 98.1 F 07/18/23 12:06 Heart Rate 56 L 07/18/23 14:33 Respiratory Rate 12 07/18/23 14:33 Blood Pressure 130/91 H 07/18/23 14:33 O2 Saturation 100 07/18/23 14:33 If not protocol: Oxygen Flow, liters/minute - NST Procedure NST Procedure Start Time 02:30 Stop Time 02:50 NST procedure locked in note. No NST was performed. Meds/Allgy - Home Medications Home Medications: Ambulatory Orders Medication Instructions Recorded Confirmed Vit No.130/Iron/Folic 1 tab PO DAILY 11/20/22 07/18/23 [ Tablet] Ferrous Sulfate 325 mg PO DAILY 06/04/23 07/18/23 Cyanocobalamin (Vitamin B-12) 5,000 mcg PO DAILY 07/18/23 07/18/23 [Vitamin B12] - Allergies Allergies/Adverse Reactions: Allergies Allergy/AdvReac Type Severity Reaction Status Date / Time No Known Drug Allergies Allergy Verified 07/18/23 12:14 Physical - Abdominal Exam Vital Signs: Temp Pulse Resp BP Pulse Ox O2 Flow Rate 98.1 F 56 L 12 130/91 H 100 07/18/23 12:06 07/18/23 14:33 07/18/23 14:33 07/18/23 14:33 07/18/23 14:33 Plan for Labor - Plan For Labor I expect patient to be DC'd or transferred within 96 hours.: Yes
[2023-07-18 15:45] LABS: BILIRUBIN,URINE NEGATIVE (NEGATIVE); GLUCOSE, URINE (UA) NEGATIVE (NEGATIVE); KETONES,URINE (UA) NEGATIVE (NEGATIVE); LEUKOCYTE ESTERASE, URINE TRACE (NEGATIVE); NITRITE,URINE NEGATIVE (NEGATIVE); OCCULT BLOOD,URINE LARGE (NEGATIVE); PH,URINE 5.5 PH (5.0-7.5); PROTEIN,URINE NEGATIVE (NEGATIVE); UROBILINOGEN,URINE 0.2 (NORMAL) E.U./dL (NORMAL)
[2023-07-18 15:46] LABS: CLARITY,URINE HAZY (CLEAR)
[2023-07-18 15:52] LABS: CREATININE,URINE 66.9 mg/dL; PROTEIN/CREATININE RATIO,URINE 0.3 (<=0.2)
[2023-07-18 15:53] LABS: BACTERIA,URINE Many /HPF (None Seen); SQUAMOUS EPITHELIAL CELL,UR FEW Squamous (<= Few)
[2023-07-18] MEDS ORDERED: NIFEdipine ER 30 MG TABLET PO SCH (16:06)
[2023-07-18] MEDS ORDERED: ACETAMINOPHEN 500 MG TABLET PO PRN (16:15)
[2023-07-18] MEDS ORDERED: SODIUM CHLORIDE FLUSH 0.9% 10 ML SYRINGE IVP SCH (17:00)
[2023-07-18 19:26] VITALS: O2SAT 99
[2023-07-18 20:09] VITALS: BP 125/87
--- NOTE | 2023-07-18 20:39 | Labor Flowsheet ---
Labor Flowsheet Datetime Report Generated by CPN: 07/18/2023 20:39 Datetime: 07/17/2023 18:19 VITAL SIGNS NBP Sys/Virgie/Mean (mmHg): 146 : 98 : 110 Pulse: 71 LaborFlag: Labor Datetime: 07/17/2023 18:15 SpO2 (%): 100 Datetime: 07/16/2023 11:00 Stage of : Labor Datetime: 07/10/2023 01:37 Medication Comments: Turned off epidural Datetime: 07/10/2023 01:30 UTERINE ACTIVITY Monitor Mode: Palpation Frequency (min): 2-4 Quality: Strong Duration (sec): 60-100 Pattern: Normal: <= 5 Contractions in 10 Minutes Resting Tone (Palpate): Relaxed Comments: indeterminate of FHR Datetime: 07/10/2023 01:15 Pitocin Checklist: At Least 1 Acceleration of 15 bpm x 15 Seconds in 30 Minutes or Adequate Variabi lity; No More than 1 Late Deceleration Occurred in Past 30 Minutes; No More than 2 Variable Decelerat ions > 60 Seconds in Duration and decreasing >60 bpm in 30 minutes; No More than 5 Uterine Contractio ns in 10 Minutes for any 20 Minute Interval; Uterus Palpates Soft between Contractions ASSESSMENT A Monitor Mode: Telemetry FHR Baseline Rate : 150 Variability: Moderate 6-25 bpm Accelerations: 15X15 Decelerations: Early; Variable Category: Category II Datetime: 07/10/2023 01:12 MEDICATIONS Pitocin (milliunits): Increased to @ 6 Datetime: 07/10/2023 01:04 Patient Position/Activity: Left Tilt; High Fowlers Datetime: 07/10/2023 00:58 COMMUNICATION Communication: Provider at Bedside Datetime: 07/10/2023 00:32 Provider Reviewed Strip: Yes Notification Reason: Status Update; Status; Labor Status; Maternal Vital Sign Change Communication Comments: Updated provider of category 2 reading, minimal variability, variable dece ls. Instructed to reposition pt's legs to promote blood flow per provider. Provider in house and rev iewing strip. Datetime: 07/10/2023 00:31 Vital Sign Comments: Auscultated maternal heart rate for one minute Datetime: 07/10/2023 00:30 FHR Baseline Changes: No Baseline Change Datetime: 07/10/2023 00:03 Respirations: 19 Temperature (C): 37.0 Datetime: 07/10/2023 00:00 Actions for Decelerations: Provider Notified Datetime: 07/09/2023 23:36 I/O Interventions: Ice Chips Given Datetime: 07/09/2023 23:34 Patient Care Comments: Encouraged deep breathing during resting period from UCs Datetime: 07/09/2023 23:19 PATIENT CARE IV/Blood Work: IV Bag Number @ 2 Datetime: 07/09/2023 22:53 Pain Type: Pressure STAGE 2 Pushing: Coached on Pushing Pushing Position: Pushing with Contractions Datetime: 07/09/2023 22:21 VAGINAL EXAM Dilatation (cm): 10.0 Exam by: Dr. Eulalio Vaginal Exam Comments: complete Datetime: 07/09/2023 20:30 Contraction Comments: coupling of UCs noted Datetime: 07/09/2023 20:15 Effacement (%): 100 Station: -1 Datetime: 07/09/2023 20:05 Anesthesia Level Check: T8- Ribs Datetime: 07/09/2023 20:03 Pain Assessment Comments: Pt c/o feeling a lot of pressure in her bottom Datetime: 07/09/2023 19:29 PAIN Pain Scale: 1 Pain Coping: Talking Through Contractions; Breathing Through Contractions Comfort Measures: Breathing/Relaxation Datetime: 07/09/2023 18:04 Epidural Procedure Other: Pump Started Datetime: 07/09/2023 17:53 Epidural Procedure: Test Dose Datetime: 07/09/2023 17:45 Antiemetics/Antacids: Zofran (mg) @ 4mg Datetime: 07/09/2023 17:38 PROCEDURE TIME OUT Procedure Verify: Correct Patient Identity; Correct Side and Site are Marked; Accurate Procedure Co nsent Form; Agreement on Procedure to be Done; Correct Patient Position ANESTHESIA Anesthesia Plans: Epidural Epidural Positioning: Sitting Datetime: 07/09/2023 17:31 Provider Notified (Name): [employer]RE EXTINGUISHER CHARGER Pito Patel Datetime: 07/09/2023 17:13 Vaginal Bleeding: Normal Show Cervix, Position: Midposition Datetime: 07/09/2023 16:59 Monitor Interventions for UA: [place] Adjusted Datetime: 07/09/2023 16:56 Nausea/Vomiting: Present Datetime: 07/09/2023 16:21 Pain Presence: Intermittent Pain Location: Abdomen; Back Hygiene: Complete Bath Datetime: 07/09/2023 14:12 Membrane Status: Ruptured Membranes Rupture Method: Spontaneous Amniotic Fluid Color: Clear Amniotic Fluid Amount: Scant Nitrazine: Positive Datetime: 07/09/2023 13:10 Cervical Ripening Agents: Cytotec @ Cervical Ripening Agents Other: 25mg vaginally Datetime: 07/09/2023 09:30 Monitor Interventions for FHR: Ultrasound Adjusted Datetime: 07/09/2023 07:54 MATERNAL ASSESSMENT Level of Consciousness: Drowsy Datetime: 07/09/2023 06:20 Temperature Route: Oral Datetime: 07/09/2023 01:02 DTR's/Clonus: DTRs 1+; No Clonus Headache: Denies Breath Sounds, Left: Clear and Equal Breath Sounds, Right: Clear and Equal RUQ Epigastric Pain: Denies Datetime: 07/09/2023 00:00 Pain Goal: 5 Pain Relief Measures: Comfort Measures GARCIA'S SCORE Dilatation (cm): 3-4 cms Effacement: 0-30_ effaced Station: minus 3 Consistency: Medium Position: Posterior Total Garcia's Score: 3 : 0-4 = Unfavorable cervix TEACHING Instructional Method: Demo; Patient Instructed; Family/Support Person Instructed; Verbalized Unders tanding Plan of Care: Plan of Care Discussed; Induction Unit Routine: [place] to Room; Call Paredes; Bed; Visiting Policy; Phone/Cell Phone Use; Photography; U nit Personnel; Handwashing; Monitoring; Safety/Fall Risk Prevention; Diet/Nutrition Services; B athroom Privileges; Medications Labor/Induction: Cervical Ripening; Induction Pain Management: PRN Medications; Pain Scale/Goals; Comfort Measures Related: Hydration; Activity and Rest Datetime: 07/08/2023 22:35 Cervix, Consistency: Moderate Presentation 'A': Cephalic Lie 'A': Longitudinal Datetime: 02/18/2023 12:11 Membranes Ruptured Date/Time: 07/09/2023 14:12 Amniotic Fluid Odor: Normal
--- NOTE | 2023-07-18 20:46 | DISCHARGE SUMMARY ---
Discharge Summary Admit Date: 07/18/23 Discharge Date: 07/18/23 Discharging Provider: Hernán Bernabe MD Code Status: Attempt Resuscitation Condition at Discharge: Stable Discharge Disposition: 01 Home, Self Care - DIAGNOSES Admission Diagnoses: Preeclampsia with severe features Shortness of breath Discharge Diagnoses with Status of Each Condition: preeclampsia with severe features: stable Shortness of breath: Resolved - HPI History of Present Illness: Patient has improved. Shortness of breath and headache have resolved. No acute issues. Her did fiber picker her prescription for nifedipine. As there is no universal agreement on repeated doses of magnesium sulfate, we decided not to repeat the maintenance dose. She did get a 4 g bolus in the ED. While her blood pressures may be labile for some time, is not practical to retreat her magnesium every aberrant blood pressure when they have been mostly normal to mildly elevated. - HOSPITAL COURSE Hospital Course: Patient turned to the ED today for shortness of breath and home. No acute processes could be found for shortness of breath and it resolved spontaneously. She developed a mild headache while in the ED, but that also resolved with Tylenol. After arrival in the ED, she did have a severe range pressure which was treated with 5 mg of hydralazine. Labs not concerning for worsening disease. Mild proteinuria, but lochia likely responsible. After that, blood pressures were nonsevere, although labile. She was started on nifedipine 30 mg extended release with plan on once a day dosing. She will come in for nurse visit in 2 days. Will call if symptoms worsen or blood pressure gets harder to control. She was discharged in stable condition with close foll ow-up. - ALLERGIES Allergies/Adverse Reactions: Allergies Allergy/AdvReac Type Severity Reaction Status Date / Time No Known Drug Allergies Allergy Verified 07/18/23 12:14 - MEDICATIONS Home Medications: Ambulatory Orders Medication Instructions Recorded Confirmed Vit No.130/Iron/Folic 1 tab PO DAILY 11/20/22 07/18/23 [ Tablet] Ferrous Sulfate 325 mg PO DAILY 06/04/23 07/18/23 Cyanocobalamin (Vitamin B-12) 5,000 mcg PO DAILY 07/18/23 07/18/23 [Vitamin B12] NIFEdipine [Nifedipine ER] 30 mg PO DAILY #30 tab 07/18/23 - PHYSICAL EXAM AT DISCHARGE General Appearance: positive: No acute distress, Alert Respiratory: positive: No respiratory distress, Breath sounds nml Cardiovascular: positive: Regular rate & rhythm Peripheral Pulses: positive: 1+ Abdomen: positive: Non-tender, No distention Skin: positive: Color nml Extremities: positive: Non-tender, Full ROM, Nml appearance, Pedal edema (1+) Neurologic/Psychiatric: positive: Oriented x3, CN's nml (2-12), Motor nml Reflexes: Knee (R): 1+, Knee (L): 1+ - LABS Result Diagrams: 07/18/23 12:57 07/18/23 12:57 - FOLLOW UP Follow Up: With [facility] women[facility] care in 2 to 3 days - TIME SPENT Time Spent in Discharge (Minutes): 30
[2023-07-19] MEDS ORDERED: NIFEdipine ER 30 MG TABLET PO SCH (15:15)
== END 2023-07-18 20:37 | disposition home or self-care (01) ==
LOC: ED 11:57 → FBP 15:09
PROVIDERS: ADMIT Obstetrics & Gynecology; ATTEND Obstetrics & Gynecology
DX: O14.15 Severe pre-eclampsia, complicating the puerperium (principal); R00.1 Bradycardia, unspecified; R07.9 Chest pain, unspecified; R06.02 Shortness of breath; R10.9 Unspecified abdominal pain; Z79.899 Other long term (current) drug therapy
CPT/HCPCS: 36415; 71045; 80053; 81001; 82570; 83690; 83735; 83880; 84100; 84156; 85025; 85379; 87086; 93005; 96365; 96375; 99285; A9270; G0378; 81003; J3475

== ENCOUNTER 2023-10-10 08:00 | Outpatient (CLI) | payer OTHER | END 2023-10-10 23:59 | disposition home or self-care (01) | LOC: LAB.N 08:00 | PROVIDERS: ATTEND Physician Assistant Medical | DX: L60.0 Ingrowing nail (principal); L03.032 Cellulitis of left toe | CPT/HCPCS: 87070; 87077; 87181; 87205 ==

== ENCOUNTER 2023-12-15 17:19 | Emergency (ER) | payer OTHER ==
[2023-12-15] MEDS ORDERED: BUFFERED LIDOCAINE 10 ML SYRINGE SUBQ STA (18:06)
--- NOTE | 2023-12-15 18:07 | ED Physician Documentation ---
PD HPI CHEST PAIN - Stated complaint Stated Complaint: CHEST PX - Chief complaint Chief Complaint: Cardiac - History obtained from History obtained from: Patient - Additional information Additional information: Previously healthy 22-year-old had left-sided mild chest pain yesterday and tonight has mild right-sided chest pain. It is not exertional. Not associated with shortness of breath. No recent travel or pedal edema. Ancillary complaints of 4 months of ingrown left great toenail. No family history of heart disease. PD PAST MEDICAL HISTORY - Past Medical History Past Medical History: Yes Cardiovascular: None Respiratory: None Neuro: Headaches Endocrine/Autoimmune: None GI: None INDUSTRIAL RELATIONS SPECIALIST: None : None HEENT: None Psych: None Musculoskeletal: None Derm: None - Past Surgical History Past Surgical History: No - Present Medications Home Medications: Ambulatory Orders Medication Instructions Recorded Confirmed Vit No.130/Iron/Folic 1 tab PO DAILY 11/20/22 07/18/23 [ Tablet] Norethindrone 1 tab ORAL DAILY 12/15/23 12/15/23 Sertraline HCl 150 mg PO DAILY 12/15/23 12/15/23 cephALEXin [Keflex] 500 mg PO Q6H #28 cap 12/15/23 hydrOXYzine HCL [Hydroxyzine HCl] 25 mg PO DAILY PRN 12/15/23 12/15/23 - Allergies Allergies/Adverse Reactions: Allergies Allergy/AdvReac Type Severity Reaction Status Date / Time No Known Drug Allergies Allergy Verified 12/15/23 17:40 - Social History Does the pt smoke?: No Smoking Status: Never smoker Does the pt drink ETOH?: No Does the pt have substance abuse?: No - Immunizations Immunizations are current?: Yes - POLST Patient has POLST: No PD ED PE NORMAL - Vitals Vital signs reviewed: Yes - General General: Alert and oriented X 3, No acute distress - Neck Neck: Supple, no meningeal sign - Cardiac Cardiac: RRR, No murmur - Respiratory Respiratory: No respiratory distress, Clear bilaterally - Abdomen Abdomen: Non tender - Extremities Extremities: No edema, No calf tenderness / cord, Other (She does have severely ingrown both sides of the left great toenail) - Neuro Neuro: Alert and oriented X 3, Normal speech Eye Opening: Spontaneous Motor: Obeys Commands Verbal: Oriented GCS Score: 15 - Psych Psych: Normal mood, Normal affect Results - Vitals Vitals: Vital Signs - 24 hr 12/15/23 17:36 Temperature 36 C L Heart Rate 77 Respiratory 16 Rate Blood Pressure 120/77 O2 Saturation 97 Oxygen O2 Source Room air - EKG (time done) 1814 EKG releavant findings:: EKG personally interpreted by author of this note. Relevant findings are: Rate: Rate (enter#) (71) Rhythm: NSR [place]: Normal Intervals: Normal DC QRS: Normal Ischemia: Normal ST segments Procedures - General procedure General procedure: After verbal informed consent the left great toe was anesthetized using a digital block with buffered lidocaine in standard fashion with excellent anesthesia. Then the lateral and medial fifth of each toenail side was removed using sharp excision and the patient tolerated this well. PD Medical Decision Making - ED course ED course: This for the chest pain goes, it certainly does not seem like anything severe. No cough or shortness of breath. No risk factors for PE or ACS. Will check an EKG. Departure - Departure Disposition: 01 Home, Self Care Clinical Impression: Ingrown left big toenail Chest pain Qualifiers: Chest pain type: unspecified Qualified Code(s): R07.9 - Chest pain, unspecified Condition: Good Instructions: ED Chest Pain NonCardiac, ED Ingrown Toenail Excised Prescriptions: cephALEXin [Keflex] 500 mg PO Q6H #28 cap Comments: Thank for both issues [place]. Return for new or worsening symptoms. Forms: PCP List
[2023-12-15 18:43] VITALS: BP 128/67; O2SAT 100
== END 2023-12-15 18:38 | disposition home or self-care (01) ==
LOC: ED 17:19
DX: R07.9 Chest pain, unspecified (principal); L60.0 Ingrowing nail; Z79.899 Other long term (current) drug therapy
CPT/HCPCS: 11765; 93005; 99283; 99284

== ENCOUNTER 2023-12-18 11:37 | Emergency (ER) | payer OTHER ==
[2023-12-18 12:14] VITALS: BP 142/67; O2SAT 100
--- NOTE | 2023-12-18 13:18 | ED Physician Documentation ---
<David Carter - Last Filed: 12/18/23 13:18> PD HPI LOWER EXT INJURY - Stated complaint Stated Complaint: LT TOE PX - Chief complaint Chief Complaint: Ext Problem PD PAST MEDICAL HISTORY - Past Medical History Past Medical History: Yes Cardiovascular: None Respiratory: None Neuro: Headaches Endocrine/Autoimmune: None GI: None BUYER RENTER: None : None HEENT: None Psych: None Musculoskeletal: None Derm: None - Past Surgical History Past Surgical History: No - Present Medications Home Medications: Ambulatory Orders Medication Instructions Recorded Confirmed Vit No.130/Iron/Folic 1 tab PO DAILY 11/20/22 07/18/23 [ Tablet] Norethindrone 1 tab ORAL DAILY 12/15/23 12/15/23 Sertraline HCl 150 mg PO DAILY 12/15/23 12/15/23 cephALEXin [Keflex] 500 mg PO Q6H #28 cap 12/15/23 hydrOXYzine HCL [Hydroxyzine HCl] 25 mg PO DAILY PRN 12/15/23 12/15/23 - Allergies Allergies/Adverse Reactions: Allergies Allergy/AdvReac Type Severity Reaction Status Date / Time No Known Drug Allergies Allergy Verified 12/18/23 12:06 - Social History Does the pt smoke?: No Smoking Status: Never smoker Does the pt drink ETOH?: No Does the pt have substance abuse?: No - Immunizations Immunizations are current?: Yes - POLST Patient has POLST: No Departure - Departure Disposition: 01 Home, Self Care Clinical Impression: Ingrown left big toenail Condition: Good Instructions: ED Ingrown Toenail Excised Forms: PCP List, Activity restrictions Discharge Date/Time: 12/18/23 13:56 <Bautista Morris - Last Filed: 12/18/23 14:06> PD HPI LOWER EXT INJURY - Additional information Additional information: Seen recently for ingrown toenail and excision was done. She is not improving as rapidly and she would like and she was unable to see her doctor today as they canceled on her. She feels like she is unable to work because of the pain. PD ED PE NORMAL - Vitals Vital signs reviewed: Yes - General General: Alert and oriented X 3, No acute distress - Extremities Extremities: Other (Still with purulence, granulation tissue and ingrown toenails on both sides of the left great toe.) - Neuro Neuro: Alert and oriented X 3, Normal speech Results - Vitals Vitals: Vital Signs - 24 hr 12/18/23 12:06 Temperature 36.8 C Heart Rate 76 Respiratory 16 Rate Blood Pressure 142/67 H O2 Saturation 100 Oxygen O2 Source Room air PD Medical Decision Making - ED course ED course: I offered complete excision of the toenail which she declined. She really more needs a work note and to see her PCM for podiatry referral. Departure - Departure Record reviewed to determine appropriate education?: Yes
== END 2023-12-18 13:56 | disposition home or self-care (01) ==
LOC: ED 11:37
DX: Z02.79 Encounter for issue of other medical certificate (principal); L60.0 Ingrowing nail
CPT/HCPCS: 99282; 99283

== ENCOUNTER 2024-01-28 21:56 | Emergency (ER) | payer OTHER ==
--- NOTE | 2024-01-28 22:52 | ED Physician Documentation ---
History of Present Illness - Stated complaint Stated Complaint: DIZZY/DIARRHEA - Chief complaint Chief Complaint: Abd Pain - History obtained from History obtained from: Patient - Additonal information Additional information: 23yF with pmh depression and anxiety, otherwise healthy p/w lower abdominal cramping and one episode of diarrhea today as well as an episode of dizziness. denies n/v, urinary sx, back pain. 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 : None HEENT: None Psych: None Musculoskeletal: None Derm: None - Past Surgical History Past Surgical History: No - Present Medications Home Medications: Ambulatory Orders Medication Instructions Recorded Confirmed Vit No.130/Iron/Folic 1 tab PO DAILY 11/20/22 07/18/23 [ Tablet] - Allergies Allergies/Adverse Reactions: Allergies Allergy/AdvReac Type Severity Reaction Status Date / Time No Known Drug Allergies Allergy Verified 01/28/24 22:07 - Social History Does the pt smoke?: No Smoking Status: Never smoker Does the pt drink ETOH?: No Does the pt have substance abuse?: No - Immunizations Immunizations are current?: Yes - POLST Patient has POLST: No PD ED PE NORMAL - Vitals Vital signs reviewed: Yes - General General: Alert and oriented X 3, No acute distress, Well developed/nourished - HEENT HEENT: Atraumatic, PERRL, EOMI, Moist mucous membranes - Neck Neck: Supple, no meningeal sign - Cardiac Cardiac: RRR - Respiratory Respiratory: No respiratory distress, Clear bilaterally - Abdomen Abdomen: Non tender, Non distended - Derm Derm: Normal color Results - Vitals Vitals: Vital Signs - 24 hr 01/28/24 01/28/24 21:57 22:01 Temperature 36.6 C 36.6 C Heart Rate 69 69 Respiratory 17 17 Rate Blood Pressure 130/78 130/73 O2 Saturation 100 100 Oxygen O2 Source Room air PD Medical Decision Making - ED course ED course: Well appearing 23 y F, previously healthy p/w lower abdominal crmaping and one episode of diarrhea. Negative ROS otherwise. She has normal vitals and benign abdominal exam. advised symptomatic care. return precautions given. plan to f/u with pcp as needed. Departure - Departure Disposition: 01 Home, Self Care Clinical Impression: Diarrhea, Abdominal cramping Condition: Stable Instructions: ED Diarrhea Viral Comments: You were seen in the emergency department for abdominal cramping, dizziness and diarrhea. Your vital signs and exam uncovered no emergent issues. You may be getting sick with a stomach virus. Please stay well hydrated, get lots of rest, wash your hands regularly and stay home until you are feeling better. You can take immodium over the counter medicine for diarrhea as long as you are not having fever (temp higher than 100.4). Please follow-up with your primary care provider and return to the emergency department if you have any new or worsening symptoms or other concerns. Forms: PCP List, Activity restrictions
[2024-01-28 23:06] VITALS: BP 109/66; O2SAT 99
== END 2024-01-28 22:56 | disposition home or self-care (01) ==
LOC: ED 21:56
DX: R10.30 Lower abdominal pain, unspecified (principal); R19.7 Diarrhea, unspecified; R42 Dizziness and giddiness
CPT/HCPCS: 80053; 83690; 85025; 99282; 99283

== ENCOUNTER 2024-02-08 08:02 | Emergency (ER) | payer OTHER ==
[2024-02-08 08:16] VITALS: BP 138/74; O2SAT 97
--- NOTE | 2024-02-08 08:51 | ED Physician Documentation ---
History of Present Illness - Stated complaint Stated Complaint: HELTON,SORE THROAT,COUGH,CONGESTION,BODY ACHES - Chief complaint Chief Complaint: Heent - Additonal information Additional information: Patient 23-year-old female presenting with cough, congestion, headache. Symptoms ongoing x 2 days. Multiple family members with similar symptoms. Denies chest pain, shortness of breath, abdominal pain. Review of Systems Eyes: denies: Loss of vision Ears: denies: Loss of hearing Nose: reports: Rhinorrhea / runny nose, Congestion Respiratory: reports: Cough GI: denies: Abdominal Pain, Nausea, Vomiting : denies: Dysuria PD PAST MEDICAL HISTORY - Past Medical History Past Medical History: Yes Cardiovascular: None Respiratory: None Neuro: Headaches Endocrine/Autoimmune: None GI: None QI SPECIALIST: None : None HEENT: None Psych: None Musculoskeletal: None Derm: None - Past Surgical History Past Surgical History: No - Present Medications Home Medications: Ambulatory Orders Medication Instructions Recorded Confirmed Vit No.130/Iron/Folic 1 tab PO DAILY 11/20/22 07/18/23 [ Tablet] Acetaminophen [Tylenol] 650 mg PO Q6H PRN #30 tab 02/08/24 Ibuprofen [Motrin] 800 mg PO Q8H PRN #30 tablet 02/08/24 Pseudoephedrine HCl [Sudafed 240 mg PO DAILY #10 tab 02/08/24 24-Hour] - Allergies Allergies/Adverse Reactions: Allergies Allergy/AdvReac Type Severity Reaction Status Date / Time No Known Drug Allergies Allergy Verified 02/08/24 08:10 - Social History Does the pt smoke?: No Smoking Status: Never smoker Does the pt drink ETOH?: No Does the pt have substance abuse?: No - Immunizations Immunizations are current?: Yes - POLST Patient has POLST: No PD ED PE NORMAL - General General: Alert and oriented X 3, No acute distress - HEENT HEENT: Atraumatic - Neck Neck: Supple, no meningeal sign - Cardiac Cardiac: RRR - Respiratory Respiratory: No respiratory distress - Abdomen Abdomen: Normal bowel sounds - Female Female : Deferred - Rectal Rectal: Deferred - Back Back: No CVA TTP - Derm Derm: Normal color - Extremities Extremities: No deformity Results - Vitals Vitals: Vital Signs - 24 hr 02/08/24 08:08 Temperature 36.2 C L Heart Rate 92 Respiratory 16 Rate Blood Pressure 138/74 H O2 Saturation 97 Oxygen O2 Source Room air PD Medical Decision Making - ED course Complexity details: considered differential, d/w patient ED course: Patient 23-year-old female presenting with cough, congestion, sore throat, headache. Afebrile, hemodynamic stable arrival to the emergency department. Reports multiple family members including her who is here with her at the emergency department having similar symptoms. Most likely etiology is viral given otherwise benign physical exam. Will discharge with medication for symptomatic management. Will encourage careful follow-up with primary care. Of [facility]red respiratory viral panel which patient declined. Her however is getting one of the respiratory viral panels and will follow-up with the [employer] [facility]. Otherwise clear return precautions given prior to discharge. Departure - Departure Disposition: Home, Self Care Clinical Impression: Viral illness Instructions: ED Viral Syndrome Prescriptions: Ibuprofen [Motrin] 800 mg PO Q8H PRN #30 tablet PRN Reason: PAIN &/OR FEVER Pseudoephedrine HCl [Sudafed 24-Hour] 240 mg PO DAILY #10 tab Acetaminophen [Tylenol] 650 mg PO Q6H PRN #30 tab PRN Reason: Pain Comments: Thank you for allowing us to care for you today at [facility] emergency department. Today in the emergency room you were evaluated for any possible dangerous or life-threatening medical emergency. Your physical exam here in the emergency department is very reassuring. As we discussed you are suffering from a viral illness. Please drink plenty fluids and get plenty of rest. I have written some prescriptions to help with pain and, cough, congestion. Please take these as directed. Please follow-up with your primary care doctor soon as able. If anytime you develop any new or worsening symptoms please not hesitate to return. Forms: PCP List, Activity restrictions
== END 2024-02-08 09:05 | disposition home or self-care (01) ==
LOC: ED 08:02
DX: B34.9 Viral infection, unspecified (principal)
CPT/HCPCS: 99283

== ENCOUNTER 2024-02-15 03:29 | Emergency (ER) | payer OTHER ==
[2024-02-15] MEDS: ONDANSETRON ODT 4 MG TABLET TL STA (04:39)
--- NOTE | 2024-02-15 05:06 | ED Physician Documentation ---
History of Present Illness - Stated complaint Stated Complaint: ABDOMINAL PX - Chief complaint Chief Complaint: Abd Pain - History obtained from History obtained from: Patient - Additonal information Additional information: The pt comes to the ED with CC of abdominal cramps for the past several months. They are worse on the L and sometimes travel up toward her stomach. No N/V. No dysuria or vaginal sx. The pt does struggle with intermittent constipation, but when she takes a stool softener, it doesn't seem to help her sx. No fevers or chills. No h/o surgery. No current sx. 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 : None HEENT: None Psych: None Musculoskeletal: None Derm: None - Past Surgical History Past Surgical History: No - Present Medications Home Medications: Ambulatory Orders Medication Instructions Recorded Confirmed Vit No.130/Iron/Folic 1 tab PO DAILY 11/20/22 07/18/23 [ Tablet] Acetaminophen [Tylenol] 650 mg PO Q6H PRN #30 tab 02/08/24 Ibuprofen [Motrin] 800 mg PO Q8H PRN #30 tablet 02/08/24 Pseudoephedrine HCl [Sudafed 240 mg PO DAILY #10 tab 02/08/24 24-Hour] - Allergies Allergies/Adverse Reactions: Allergies Allergy/AdvReac Type Severity Reaction Status Date / Time No Known Drug Allergies Allergy Verified 02/15/24 04:01 - Social History Does the pt smoke?: No Smoking Status: Never smoker Does the pt drink ETOH?: No Does the pt have substance abuse?: No - Immunizations Immunizations are current?: Yes - POLST Patient has POLST: No PD ED PE NORMAL - Vitals Vital signs reviewed: Yes - General General: Alert and oriented X 3, No acute distress, Well developed/nourished - HEENT HEENT: Atraumatic, EOMI, Moist mucous membranes - Neck Neck: Supple, no meningeal sign - Cardiac Cardiac: RRR, No murmur - Respiratory Respiratory: No respiratory distress, Clear bilaterally - Abdomen Abdomen: Soft, Non tender, Non distended - Derm Derm: Warm and dry - Extremities Extremities: No deformity - Neuro Neuro: Alert and oriented X 3 - Psych Psych: Normal mood, Normal affect Results - Vitals Vitals: Oxygen O2 Source Room air PD Medical Decision Making - ED course Complexity details: considered differential, d/w patient ED course: The pt was asymptomatic in the ED, and her exam was benign. I d/w pt that I do not know what is causing her cramps, and there is really not a test in the ED to sort this out emergently, particularly with this being a mild, yet ongoing condition for months. I have d/w pt that this rules out a lot of things we'd be looking for in the ED. I have advised the pt to speak with her PCP about getting a colonoscopy. The pt may also have an ovarian cyst, but we do not have US available right now. I have advised the pt to speak with her PCP about this, also. We have discussed the usual indications for return. Departure - Departure Disposition: 01 Home, Self Care Clinical Impression: Abdominal pain Qualifiers: Abdominal location: left lower quadrant Qualified Code(s): R10.32 - Left lower quadrant pain Condition: Stable Instructions: ED Abdominal Pain Female Non-Specific Abdominal Pain Follow-Up: Dior Green MD [Provider Admit Priv/Credential] - Comments: It is not clear what is causing your longstanding abdominal cramping that has been going on for months. The most likely source is the last part of the large intestine which comes down the left side of your abdomen. However, the stomach could potentially be a source, as could your ovary. Unfortunately, CT scan is unlikely to be able to diagnose cramping that has been going on for months and is unlikely to be due to a structural, infectious, or inflammatory condition, of the kind that would show up on a CT. Lab work is unlikely to show anything that would help us pinpoint what is going on, either. At this point in time, the most likely tests that could be helpful would be a colonoscopy and endoscopy to get a direct look inside of your digestive tract. You could get an ultrasound of your ovaries which we do not have available tonight, though this sounds less likely to be something like an ovarian cyst. Your abdominal exam is benign and at this point in time, there is no evidence of an acute infectious or's potentially surgical condition going on. Please follow-up with your primary doctor to discuss your ongoing abdominal pain. Forms: Activity restrictions Discharge Date/Time: 02/15/24 05:13
[2024-02-15 05:15] VITALS: BP 120/63; O2SAT 99
== END 2024-02-15 05:13 | disposition home or self-care (01) ==
LOC: ED 03:29
DX: R10.32 Left lower quadrant pain (principal)
CPT/HCPCS: 99282; 99283; Q0162

== ENCOUNTER 2024-03-11 21:19 | Emergency (ER) | payer OTHER ==
--- NOTE | 2024-03-11 21:33 | ED Physician Documentation ---
History of Present Illness - Stated complaint Stated Complaint: DIZZY - Chief complaint Chief Complaint: General - History obtained from History obtained from: Patient - History of Present Illness Timing: Today Pain level max: 8 Pain level now: 8 - Additonal information Additional information: Patient is a 23-year-old female who presents to the emergency department stating that she has had an 8 out of 10 headache today. Has a history of similar headaches. She states she took Tylenol this morning but has not taken anything since. No fevers. No chills. No cough. No congestion. No sore throat. Headache was gradual in onset. Denies any possibility of . Is not breast-feeding. No numbness or tingling. No neck or back pain. Does not use IV drugs. Headache is holocranial. Patient states that she feels lightheaded as well. Not off balance. Does not feel like the room is spinning. 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 : None HEENT: None Psych: None Musculoskeletal: None Derm: None - Past Surgical History Past Surgical History: No - Present Medications Home Medications: Ambulatory Orders Medication Instructions Recorded Confirmed Vit No.130/Iron/Folic 1 tab PO DAILY 11/20/22 03/11/24 [ Tablet] Norethindrone 0.35 mg PO DAILY 03/11/24 03/11/24 - Allergies Allergies/Adverse Reactions: Allergies Allergy/AdvReac Type Severity Reaction Status Date / Time No Known Drug Allergies Allergy Verified 03/11/24 21:30 - Social History Does the pt smoke?: No Smoking Status: Never smoker Does the pt drink ETOH?: No Does the pt have substance abuse?: No - Immunizations Immunizations are current?: Yes - POLST Patient has POLST: No PD ED PE NORMAL - Vitals Vital signs reviewed: Yes - General General: Alert and oriented X 3, No acute distress - HEENT HEENT: Atraumatic, PERRL, Ears normal, Moist mucous membranes, Pharynx benign - Neck Neck: Supple, no meningeal sign, No bony TTP - Cardiac Cardiac: RRR, Strong equal pulses - Respiratory Respiratory: No respiratory distress, Clear bilaterally - Abdomen Abdomen: Soft, Non tender, Non distended - Back Back: No CVA TTP, No spinal TTP - Derm Derm: Warm and dry - Extremities Extremities: No edema, No calf tenderness / cord - Neuro Neuro: Alert and oriented X 3, breaker 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 Normal cerebellar tests) Eye Opening: Spontaneous Motor: Obeys Commands Verbal: Oriented GCS Score: 15 - Psych Psych: Normal mood, Normal affect Results - Vitals Vitals: Vital Signs - 24 hr 03/11/24 21:26 Temperature 36.1 C L Heart Rate 89 Respiratory 17 Rate Blood Pressure 149/96 H O2 Saturation 100 Oxygen O2 Source Room air - Labs Labs: Laboratory Tests 03/11/24 03/11/24 21:41 21:41 WBC 9.2 RBC 4.57 Hgb 12.2 Hct 39.7 MCV 86.9 MCH 26.7 L MCHC 30.7 L RDW 13.5 Plt Count 242 MPV 10.6 Neut # (Auto) 6.0 Lymph # (Auto) 2.2 [place]iken # (Auto) 0.8 Eos # (Auto) 0.1 Baso # (Auto) 0.0 Absolute Nucleated RBC 0.00 Nucleated RBC % 0.0 Sodium 135 Potassium 3.7 Chloride 103 Carbon Dioxide 26 Anion Gap 6.0 BUN 13 Creatinine 0.8 Estimated GFR (MDRD) 108 Glucose 81 Calcium 10.2 Total Bilirubin 0.7 AST 15 ALT 11 Alkaline Phosphatase 64 Total Protein 7.6 Albumin 4.3 Globulin 3.3 Albumin/Globulin Ratio 1.3 Lipase 28 PD Medical Decision Making - ED course Complexity details: reviewed results, re-evaluated patient, considered differential, d/w patient ED course: Patient was given IV fluids, Toradol and droperidol. Headache resolved. Dizziness resolved. No significant electrolyte abnormalities or lab abnormalities. Patient request to go home at this time. No abnormal neurological findings. Normal cerebellar test. Normal gait. Symptoms appear to have been related to her headache. Tolerating p.o. without difficulty. No evidence of subarachnoid hemorrhage, tumor, mass. No indication for emergent neuroimaging. Patient counseled regarding signs and symptoms for which I smith delgadoeve and urgent re-evaluation would be necessary. Patient with good understanding of and agreement to plan and is comfortable going home at this time This document was made in part using voice recognition software. While efforts are made to proofread this document, sound alike and grammatical errors may occur. Departure - Departure Disposition: 01 Home, Self Care Clinical Impression: Headache Qualifiers: Headache type: unspecified Headache chronicity pattern: acute headache Intractability: not intractable Qualified Code(s): R51.9 - Headache, unspecified Condition: Good Instructions: ED Cephalgia Unspecified Follow-Up: POPEYE COX MD [Primary Care Provider] - Within 1 week Comments: Please go home and rest tonight. Make sure you are drinking plenty of fluids. Your symptoms appear to be related to your headache today. Your laboratory testing does not show any acute abnormalities. Please return if you worsen. Forms: PCP List
[2024-03-11] MEDS: SODIUM CHLORIDE 0.9% 1,000 ML IV STA (21:43)
[2024-03-11] MEDS: KETOROLAC 30 MG/ML VIAL IVP STA (21:43)
[2024-03-11] MEDS: DROPERIDOL 5 MG/2 ML VIAL IVP STA (21:43)
[2024-03-11 21:47] LABS: BASOPHILS % (AUTO) 0.3 %; EOSINOPHILS # (AUTO) 0.1 10^3/uL (0.0-0.7); EOSINOPHILS % (AUTO) 0.8 %; HCT - HEMATOCRIT 39.7 % (37.0-47.0); HGB - HEMOGLOBIN 12.2 g/dL (12.0-16.0); LYMPHOCYTES # (AUTO) 2.2 10^3/uL (1.5-3.5); LYMPHOCYTES % (AUTO) 24.1 %; MEAN CORPUSCULAR HEMOGLOBIN 26.7 pg (27.0-31.0); MEAN CORPUSCULAR HGB CONC 30.7 g/dL (32.0-36.0); MEAN CORPUSCULAR VOLUME 86.9 fL (81.0-99.0); MEAN PLATELET VOLUME 10.6 fL (7.9-10.8); MONOCYTES # (AUTO) 0.8 10^3/uL (0.0-1.0); MONOCYTES % (AUTO) 8.7 %; NEUTROPHILS % (AUTO) 65.8 %; PLT - PLATELET COUNT 242 10^3/uL (130-450); RED BLOOD COUNT 4.57 10^6/uL (4.20-5.40); RED CELL DISTRIBUTION WIDTH 13.5 % (12.0-15.0); WHITE BLOOD COUNT 9.2 x10^3/uL (4.8-10.8)
[2024-03-11 22:03] LABS: ALBUMIN 4.3 g/dL (3.2-5.5); ALBUMIN/GLOBULIN RATIO 1.3 (1.0-2.2); BILIRUBIN,TOTAL 0.7 mg/dL (0.2-1.0); CALCIUM 10.2 mg/dL (8.5-10.3); CREATININE 0.8 mg/dL (0.6-1.3); POTASSIUM 3.7 mmol/L (3.5-4.5); TOTAL PROTEIN 7.6 g/dL (6.4-8.9)
[2024-03-11 22:10] LABS: BILIRUBIN,URINE NEGATIVE (NEGATIVE); GLUCOSE, URINE (UA) NEGATIVE (NEGATIVE); KETONES,URINE (UA) NEGATIVE (NEGATIVE); LEUKOCYTE ESTERASE, URINE NEGATIVE (NEGATIVE); NITRITE,URINE NEGATIVE (NEGATIVE); OCCULT BLOOD,URINE NEGATIVE (NEGATIVE); PH,URINE 6.5 PH (5.0-7.5); PROTEIN,URINE NEGATIVE (NEGATIVE); UROBILINOGEN,URINE 0.2 (NORMAL) E.U./dL (NORMAL)
[2024-03-11 22:13] LABS: CLARITY,URINE CLEAR (CLEAR)
[2024-03-11 22:14] LABS: HCG UR QUAL NEGATIVE
[2024-03-11 22:25] VITALS: BP 128/83; O2SAT 98
== END 2024-03-11 22:16 | disposition home or self-care (01) ==
LOC: ED 21:19
DX: R51.9 Headache, unspecified (principal)
CPT/HCPCS: 36415; 80053; 81001; 81003; 81025; 83690; 85025; 87086; 96374; 96375; 99283